=== PATIENT | male | born 1990 | race Caucasian/White ===

== ENCOUNTER 2018-05-31 13:32 | Emergency (ER) | payer OTHER, MEDICAID, SELFPAY ==
[2018-05-31 13:38] VITALS: BP 134/75; PULSE 112; RESP 18; TEMP 36.2; O2SAT 99; BMI 23.7
--- NOTE | 2018-05-31 15:09 | ED.SKABFB ---
HPI - Skin/Abscess/Foreign Bdy <SHIRA Arambula - Last Filed: 05/31/18 22:23> General Chief complaint: Skin/Abscess/Foreign Body Stated complaint: cut lip, a mess Time Seen by Provider: 05/31/18 15:11 Source: patient Mode of arrival: ambulatory Limitations: no limitations History of Present Illness HPI narrative: 28-year-old male with history of IV drug abuse heroin and is an former smoker here for complaint of swelling and pain with purulent discharge to his lower lip for the last 4 days. He states that the pain started with a small pustule/pimple to the lower lip area that he squeezed and her removed the pus. He reports increasing pain and swelling to that area since that timeframe. He denies any fevers or chills. He denies any trauma to the area. He has had a history of having abscesses in the past. Pain and swelling is limited to the lower lip. No other concerns or complaints. MD complaint: abscess/boil Related Data Home Medications Medication Instructions Recorded Confirmed naloxone [Narcan] 1 dose INTRANASAL DIRECTED 05/31/18 05/31/18 Previous Rx's Medication Instructions Recorded clindamycin HCl 300 mg PO QID #28 cap 05/31/18 Allergies Allergy/AdvReac Type Severity Reaction Status Date / Time Sulfa (Sulfonamide Allergy Intermediate Verified 05/31/18 13:43 Antibiotics) [SULFA (SULFONAMIDE ANTIBIOTICS)] Review of Systems <SHIRA Arambula - Last Filed: 05/31/18 22:23> Constitutional Denies chills, Denies fever(s), Denies lethargy and Denies weakness Eyes Denies change in vision, Denies eye discharge, Denies irritation and Denies loss of vision ENT Comments: Swelling and purulent drainage from lower lip Cardiovascular Denies chest pain, Denies irregular heart rhythm, Denies lightheadedness, Denies palpitations, Denies dyspnea, Denies dyspnea on exertion and Denies orthopnea Respiratory Denies cough, Denies dyspnea, Denies dyspnea on exertion and Denies wheezing Gastrointestinal Gastrointestinal: Denies abdominal pain, Denies change in bowel habits, Denies diarrhea, Denies nausea and Denies vomiting Genitourinary Denies hematuria, Denies flank pain, Denies urinary incontinence and Denies urinary urgency Musculoskeletal Denies back pain, Denies muscle weakness, Denies numbness and Denies tingling Integumentary/Breasts Denies pruritus, Denies erythema, Denies rash and Denies wounds Neurologic Denies confusion, Denies loss of vision, Denies numbness, Denies tingling and Denies weakness Psychiatric Denies anxiety, Denies confusion, Denies depression, Denies homicidal ideation and Denies suicidal ideation Endocrine Denies palpitations Hematologic/Lymphatic Denies easy bruising Allergic/Immunologic Denies wheezing Exam <SHIRA Arambula - Last Filed: 05/31/18 22:23> Initial Vital Signs Initial Vital Signs: Vital Signs Temperature 97.2 F L 05/31/18 13:38 Pulse Rate 112 H 05/31/18 13:38 Respiratory Rate 18 05/31/18 13:38 Blood Pressure 134/75 05/31/18 13:38 Pulse Oximetry 99 05/31/18 13:38 Const General: cooperative and well developed Nutritional Appearance: well nourished Orientation: alert, awake, oriented x3 and not confused HENMT Face and sinus: other (Swelling and tenderness to the lower lip with fluctuance and induration. 0.5 cm scab to right lower lip. ) Mouth: oral mucosae normal, oropharynx normal and moist mucous membranes Eyes Conjunctivae: conjunctivae normal Sclera: sclerae normal Pupils: PERRL EOM: EOM intact bilaterally Resp Effort & Inspection: normal respiratory effort, able to speak in complete sentences, no respiratory distress and no use of accessory muscles Auscultation: clear to auscultation bilaterally, no rales, no rhonchi and no wheezes Cardio Rate: regular rate Rhythm: regular rhythm Heart Sounds: no click, no gallops, no murmurs and no rubs Pulses: normal peripheral pulses Skin General: no rashes or lesions noted, No jaundice and No petechiae Neuro General: alert, oriented x3, gait normal and no focal motor deficits Speech: speech normal <Katrin Causey DO - Last Filed: 06/06/18 06:17> Initial Vital Signs Initial Vital Signs: Vital Signs Temperature 97.2 F L 05/31/18 13:38 Pulse Rate 112 H 05/31/18 13:38 Respiratory Rate 18 05/31/18 13:38 Blood Pressure 134/75 05/31/18 13:38 Pulse Oximetry 99 05/31/18 13:38 Procedures <SHIRA Arambula - Last Filed: 05/31/18 22:23> Abscess I/D Site: lip Local Anesthetic: lidocaine 1% Amount of anesthesia used (mL): 2 Technique: incised with #11 blade Amount of fluid expressed (mL): 5 Irrigation: Yes Packing used?: none Complications: pain and bleeding Course <SHIRA Arambula - Last Filed: 05/31/18 22:23> Orders Ordered: Discontinued Medications Clindamycin HCl (Cleocin) 300 mg PO NOW ONE Stop: 05/31/18 17:07 Last Admin: 05/31/18 17:10 Dose: 300 mg Sodium Chloride (Normal Saline 0.9%) 1,000 mls @ 1,000 mls/hr IV BOLUS ONE Stop: 05/31/18 16:18 Last Infusion: 05/31/18 17:34 Dose: 0 mls/hr Admin: 05/31/18 16:26 Dose: 1,000 mls/hr Ketorolac Tromethamine (Toradol) 30 mg IV NOW ONE Stop: 05/31/18 15:20 Last Admin: 05/31/18 16:26 Dose: 30 mg Lorazepam (Ativan) 1 mg PO NOW ONE Stop: 05/31/18 15:49 Last Admin: 05/31/18 16:07 Dose: 1 mg Vital Signs - 8 hr 05/31/18 16:54 05/31/18 18:08 Pulse Rate 101 H 110 H Respiratory Rate 18 18 Blood Pressure 116/63 Blood Pressure [Right Arm] 116/75 Pulse Oximetry 97 96 <Katrin Causey DO - Last Filed: 06/06/18 06:17> Orders Ordered: Discontinued Medications Clindamycin HCl (Cleocin) 300 mg PO NOW ONE Stop: 05/31/18 17:07 Last Admin: 05/31/18 17:10 Dose: 300 mg Sodium Chloride (Normal Saline 0.9%) 1,000 mls @ 1,000 mls/hr IV BOLUS ONE Stop: 05/31/18 16:18 Last Infusion: 05/31/18 17:34 Dose: 0 mls/hr Admin: 05/31/18 16:26 Dose: 1,000 mls/hr Ketorolac Tromethamine (Toradol) 30 mg IV NOW ONE Stop: 05/31/18 15:20 Last Admin: 05/31/18 16:26 Dose: 30 mg Lorazepam (Ativan) 1 mg PO NOW ONE Stop: 05/31/18 15:49 Last Admin: 05/31/18 16:07 Dose: 1 mg Vital Signs - 8 hr 05/31/18 16:54 05/31/18 18:08 Pulse Rate 101 H 110 H Respiratory Rate 18 18 Blood Pressure 116/63 Blood Pressure [Right Arm] 116/75 Pulse Oximetry 97 96 MDM - Skin/Abscess/Foreign Bdy <SHIRA Arambula - Last Filed: 05/31/18 22:23> Lab Data Result diagrams: 05/31/18 16:15 05/31/18 16:15 Lab Results 05/31/18 05/31/18 05/31/18 Range/Units 16:15 16:15 16:15 WBC 15.1 H (4.5-11.0) X10^3/uL RBC 5.25 (4.5-5.9) X10^6/uL Hgb 14.9 (13.5-17.5) g/dL Hct 45.2 (41-53) % MCV 86.1 (80-100) fL MCH 28.3 (26-34) PG MCHC 32.9 (30-36) % RDW 14.3 (11.6-14.8) % Plt Count 269 (150-400) X10^3/uL Neut % (Auto) 81.1 H (50-75) % Lymph % (Auto) 13.3 L (25-40) % [place] % (Auto) 5.3 (3-14) % Eos % (Auto) 0.1 L (2-4) % Baso % (Auto) 0.2 (0-2) % Neut # (Auto) 93869 H (0871-3492) /uL Sodium 146 H (137-145) mmol/L Potassium 4.0 (3.4-5.1) mmol/L Chloride 103 (98-107) mmol/L Carbon Dioxide 22 (22-32) mmol/L BUN 14 (9-20) mg/dL Creatinine 0.80 (0.66-1.25) mg/dL Estimated GFR > 60.0 (>60) mL/min BUN/Creatinine Ratio 17.5 (6-22) Glucose 98 (70-100) mg/dL Lactate (0.7-2.1) mmol/L Calcium 9.2 (8.4-10.2) mg/dL Total Bilirubin 1.0 (0.2-1.3) mg/dL AST 26 (17-59) IU/L ALT 33 (21-72) IU/L Alkaline Phosphatase 119 (38-126) U/L Total Protein 8.4 H (6.3-8.2) g/dL Albumin 4.4 (3.5-5.0) g/dL Globulin 4.0 (1.7-4.1) g/dL Albumin/Globulin Ratio 1.1 (1.0-2.8) Procalcitonin < 0.05 (<0.5) ng/mL 05/31/18 Range/Units 16:15 WBC (4.5-11.0) X10^3/uL RBC (4.5-5.9) X10^6/uL Hgb (13.5-17.5) g/dL Hct (41-53) % MCV (80-100) fL MCH (26-34) PG MCHC (30-36) % RDW (11.6-14.8) % Plt Count (150-400) X10^3/uL Neut % (Auto) (50-75) % Lymph % (Auto) (25-40) % [place] % (Auto) (3-14) % Eos % (Auto) (2-4) % Baso % (Auto) (0-2) % Neut # (Auto) (6737-9267) /uL Sodium (137-145) mmol/L Potassium (3.4-5.1) mmol/L Chloride (98-107) mmol/L Carbon Dioxide (22-32) mmol/L BUN (9-20) mg/dL Creatinine (0.66-1.25) mg/dL Estimated GFR (>60) mL/min BUN/Creatinine Ratio (6-22) Glucose (70-100) mg/dL Lactate 0.8 (0.7-2.1) mmol/L Calcium (8.4-10.2) mg/dL Total Bilirubin (0.2-1.3) mg/dL AST (17-59) IU/L ALT (21-72) IU/L Alkaline Phosphatase (38-126) U/L Total Protein (6.3-8.2) g/dL Albumin (3.5-5.0) g/dL Globulin (1.7-4.1) g/dL Albumin/Globulin Ratio (1.0-2.8) Procalcitonin (<0.5) ng/mL MDM Narrative Medical decision making narrative: Abscess to a lower lip was incised and drained with small amount of purulent drainage removed. Culture and sensitivity was sent and is pending. Initial heart rate was 112 however this normalized after fluids and Ativan as patient was anxious during today's visit. CBC shows elevated white count of 15 K however procalcitonin and lactate were negative. He is placed on clindamycin. [id number] Tylenol as needed for discomfort. Warm moist compresses to the lower lip few times a day over the next few days. Follow up with primary care provider in the next few days for re-evaluation. For any worsening symptoms return to the emergency room. <Katrin Causey, DO - Last Filed: 06/06/18 06:17> Lab Data Lab Results 05/31/18 05/31/18 05/31/18 Range/Units 16:15 16:15 16:15 WBC 15.1 H (4.5-11.0) X10^3/uL RBC 5.25 (4.5-5.9) X10^6/uL Hgb 14.9 (13.5-17.5) g/dL Hct 45.2 (41-53) % MCV 86.1 (80-100) fL MCH 28.3 (26-34) PG MCHC 32.9 (30-36) % RDW 14.3 (11.6-14.8) % Plt Count 269 (150-400) X10^3/uL Neut % (Auto) 81.1 H (50-75) % Lymph % (Auto) 13.3 L (25-40) % [place] % (Auto) 5.3 (3-14) % Eos % (Auto) 0.1 L (2-4) % Baso % (Auto) 0.2 (0-2) % Neut # (Auto) 35505 H (0494-3003) /uL Sodium 146 H (137-145) mmol/L Potassium 4.0 (3.4-5.1) mmol/L Chloride 103 (98-107) mmol/L Carbon Dioxide 22 (22-32) mmol/L BUN 14 (9-20) mg/dL Creatinine 0.80 (0.66-1.25) mg/dL Estimated GFR > 60.0 (>60) mL/min BUN/Creatinine Ratio 17.5 (6-22) Glucose 98 (70-100) mg/dL Lactate (0.7-2.1) mmol/L Calcium 9.2 (8.4-10.2) mg/dL Total Bilirubin 1.0 (0.2-1.3) mg/dL AST 26 (17-59) IU/L ALT 33 (21-72) IU/L Alkaline Phosphatase 119 (38-126) U/L Total Protein 8.4 H (6.3-8.2) g/dL Albumin 4.4 (3.5-5.0) g/dL Globulin 4.0 (1.7-4.1) g/dL Albumin/Globulin Ratio 1.1 (1.0-2.8) Procalcitonin < 0.05 (<0.5) ng/mL 05/31/18 Range/Units 16:15 WBC (4.5-11.0) X10^3/uL RBC (4.5-5.9) X10^6/uL Hgb (13.5-17.5) g/dL Hct (41-53) % MCV (80-100) fL MCH (26-34) PG MCHC (30-36) % RDW (11.6-14.8) % Plt Count (150-400) X10^3/uL Neut % (Auto) (50-75) % Lymph % (Auto) (25-40) % [place] % (Auto) (3-14) % Eos % (Auto) (2-4) % Baso % (Auto) (0-2) % Neut # (Auto) (3445-5424) /uL Sodium (137-145) mmol/L Potassium (3.4-5.1) mmol/L Chloride (98-107) mmol/L Carbon Dioxide (22-32) mmol/L BUN (9-20) mg/dL Creatinine (0.66-1.25) mg/dL Estimated GFR (>60) mL/min BUN/Creatinine Ratio (6-22) Glucose (70-100) mg/dL Lactate 0.8 (0.7-2.1) mmol/L Calcium (8.4-10.2) mg/dL Total Bilirubin (0.2-1.3) mg/dL AST (17-59) IU/L ALT (21-72) IU/L Alkaline Phosphatase (38-126) U/L Total Protein (6.3-8.2) g/dL Albumin (3.5-5.0) g/dL Globulin (1.7-4.1) g/dL Albumin/Globulin Ratio (1.0-2.8) Procalcitonin (<0.5) ng/mL Discharge Plan Departure Patient Disposition: Home Clinical Impression: Lip abscess Discharge Date/Time: 05/31/18 18:10 Interventions: ED Discharge Assessment Last Done: 05/31/18 18:08 Instructions: DI for Incision and Drainage of a Skin Abscess Activity Restrictions/Additional Instructions: Abscess to a lower lip was incised and drained with small amount of purulent drainage removed. Culture and sensitivity was sent and is pending. You are prescribed an antibiotic called clindamycin use as directed. [id number] Tylenol as needed for discomfort. Warm moist compresses to the lower lip few times a day over the next few days. Follow up with primary care provider in the next few days for re-evaluation. For any worsening symptoms return to the emergency room. Prescriptions: New clindamycin HCl 300 mg capsule 300 mg PO QID Qty: 28 RF: 0 No Action naloxone [Narcan] 4 mg/actuation spray,non-aerosol 1 dose Intranasal DIRECTED RF: 0 Referrals: Uziel Whittaker MD [Primary Care Provider] - <Katrin Cuasey DO - Last Filed: 06/06/18 06:17> Cosign ED Attending Cosignature Attestation: I was immediately available in the department for consultation. This documentation has been reviewed and I agree with assessment and plan. Supervised by Katrin Causey DO
[2018-05-31] MEDS: LORazepam 0.5 MG TABLET 1 MG PO (16:07)
[2018-05-31] MEDS: SODIUM CHLORIDE 0.9% 1,000 ML 1000 ML IV (16:26)
[2018-05-31] MEDS: KETOROLAC 60 MG/2 ML VIAL 30 MG IV (16:26)
[2018-05-31 16:40] LABS: Add Manual Diff / Slide Review NO; Basophils Percent Auto 0.2 % (0-2); Eosinophils Percent Auto 0.1 % (2-4); Hematocrit 45.2 % (41-53); Hemoglobin 14.9 g/dL (13.5-17.5); Lymphocytes Percent Auto 13.3 % (25-40); Mean Corpuscular HGB Conc 32.9 % (30-36); Mean Corpuscular Hemoglobin 28.3 PG (26-34); Mean Corpuscular Volume 86.1 fL (80-100); Monocytes Percent Auto 5.3 % (3-14); Neutrophils Absolute Auto 12300 /uL (3000-5900); Neutrophils Percent Auto 81.1 % (50-75); Platelet Count 269 X10^3/uL (150-400); Red Blood Cell Count 5.25 X10^6/uL (4.5-5.9); Red Cell Distribution Width 14.3 % (11.6-14.8); White Blood Cell Count 15.1 X10^3/uL (4.5-11.0)
[2018-05-31 16:47] LABS: Lactate (Lactic Acid) 0.8 mmol/L (0.7-2.1)
[2018-05-31 16:54] VITALS: BP 116/75; PULSE 101; RESP 18; O2SAT 97
[2018-05-31 16:59] LABS: Alanine Aminotransferase 33 IU/L (21-72); Albumin 4.4 g/dL (3.5-5.0); Albumin Globulin Ratio 1.1 (1.0-2.8); Alkaline Phosphatase 119 U/L (38-126); Aspartate Aminotransferase 26 IU/L (17-59); BUN Creatinine Ratio 17.5 (6-22); Blood Urea Nitrogen 14 mg/dL (9-20); Calcium 9.2 mg/dL (8.4-10.2); Carbon Dioxide 22 mmol/L (22-32); Chloride 103 mmol/L (98-107); Estimated Glomerular Filt Rate > 60.0 mL/min (>60); Glucose 98 mg/dL (70-100); Sodium 146 mmol/L (137-145); Total Protein 8.4 g/dL (6.3-8.2)
[2018-05-31 17:10] LABS: Procalcitonin < 0.05 ng/mL (<0.5)
[2018-05-31] MEDS: CLINDAMYCIN 150 MG CAPSULE 300 MG PO (17:10)
[2018-05-31 18:08] VITALS: BP 116/63; PULSE 110; RESP 18; O2SAT 96
== END 2018-05-31 18:10 | disposition home or self-care (01) ==
PROVIDERS: Emergency Provider Nurse Practitioner Family; PCP Family Medicine
DX: K13.0 Diseases of lips (principal)
CPT/HCPCS: 10060; 36591; 80053; 83605; 84145; 85025; 87070; 87075; 87077; 87147; 87186; 87205; 96361; 96374; 99283; J1885

== ENCOUNTER 2019-01-06 20:36 | Emergency (ER) | payer OTHER, MEDICAID, SELFPAY ==
[2019-01-06 20:30] VITALS: BP 100/61; PULSE 91; RESP 22; TEMP 36.7; O2SAT 100
[2019-01-06 21:00] VITALS: BP 102/48; PULSE 86; RESP 12; O2SAT 92
[2019-01-06 21:02] VITALS: BP 102/48; PULSE 89; RESP 18; O2SAT 95
[2019-01-06] MEDS: MECLIZINE HCL 12.5 MG TABLET 50 MG PO (21:42)
[2019-01-06 21:52] VITALS: BP 97/62; PULSE 93; RESP 21; O2SAT 100
--- NOTE | 2019-01-06 21:55 | ED_ITS ---
HPI - SOB/Dyspnea General Chief Complaint: Shortness of Breath/Dyspnea Stated Complaint: Fit for Halfway Time Seen by Provider: 01/06/19 21:28 Source: patient Mode of arrival: other (Police) Limitations: no limitations History of Present Illness The patient is under arrest, he is here for medical clearance being escorted by the [employer]. He ran from police 2 times today, caught the 2nd time. 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 He continues to use heroin on a regular basis. He is here now complaining of dyspnea on exertion. He also complains of dizziness that is known. He complains of lower extremity edema. He denies chest pain or palpitations. He has no history of syncope. Has no recent fever or chills. He has no allergies or ENT complaints. Related Data Home Medications Medication Instructions Recorded Confirmed naloxone [Narcan] 1 dose INTRANASAL DIRECTED 05/31/18 01/06/19 Previous Rx's Medication Instructions Recorded meclizine 25 mg PO QID PRN #20 tab 01/06/19 Allergies Allergy/AdvReac Type Severity Reaction Status Date / Time Sulfa (Sulfonamide Allergy Intermediate Verified 05/31/18 13:43 Antibiotics) [SULFA (SULFONAMIDE ANTIBIOTICS)] Review of Systems Review of Systems ROS Unobtainable: All systems reviewed & are unremarkable except as noted in HPI and below Constitutional Denies chills, Denies fever(s), Denies lethargy and Denies weakness Eyes Denies change in vision, Denies eye discharge and Denies loss of vision ENT Ears, Nose, Mouth, and Throat: Denies change in voice, Denies vertigo, Reports dizziness and Denies ear discharge Cardiovascular Denies chest pain, Denies irregular heart rhythm, Denies lightheadedness, Denies palpitations, Denies dyspnea on exertion and Denies orthopnea Respiratory Denies cough, Denies dyspnea on exertion and Denies wheezing Gastrointestinal Gastrointestinal: Denies abdominal pain and Denies vomiting Musculoskeletal Reports other (No weakness) Integumentary/Breasts Denies pruritus and Denies rash Neurologic Denies vertigo, Reports dizziness, Denies loss of vision and Denies weakness Endocrine Denies palpitations Allergic/Immunologic Denies wheezing PFSH Medical History Heroin dependence (Acute) Homeless (Acute) Surgical History Tricuspid valve replaced (Acute) Social History Smoking Status: Current every day smoker Social History (Updated 01/06/19 @ 21:50 by Gage Gonzales MD) Smoking Status: Current every day smoker substance use type: heroin Exam Initial Vital Signs Initial Vital Signs: Vital Signs Temperature 98.1 F 01/06/19 20:30 Pulse Rate 91 H 01/06/19 20:30 Respiratory Rate 22 01/06/19 20:30 Blood Pressure 100/61 01/06/19 20:30 Pulse Oximetry 100 01/06/19 20:30 Const General: cooperative and well developed Nutritional Appearance: well nourished Orientation: alert, awake and oriented x3 HENMT Head: normal to inspection Ears: hearing grossly abnormal bilaterally and other (Clear fluid behind the left TM. Positive Hallpike test to the left.) Mouth: No oral mucosae normal and No moist mucous membranes Throat: posterior oropharynx normal Eyes General: appearance normal, both eyes and all related structures Eyelids: eyelids normal Conjunctivae: conjunctivae normal Sclera: sclerae normal Pupils: PERRL EOM: EOM intact bilaterally Other: No nystagmus Neck Neck: normal visual inspection, trachea midline, No lymphadenopathy and No JVD Lymphatic: No lymphedema Resp Effort & Inspection: normal respiratory effort, able to speak in complete sentences, no respiratory distress and no use of accessory muscles Auscultation: clear to auscultation bilaterally, no rales, no rhonchi and no wheezes Cardio Rate: regular rate Rhythm: regular rhythm Heart Sounds: no gallops, murmur (Holosystolic) and no rubs Pulses: normal peripheral pulses GI Inspection: non-distended Palpation: soft, no hepatosplenomegaly, No guarding, No pulsatile mass and No tender Auscultation: normal bowel sounds Back/Spine/Pelvis Back: No CVA tenderness Cervical Spine: cervical ROM normal and No pain with cervical ROM Thoracic/Lumbar Spine: thoracic and lumbar spine normal to inspection Skin General: no rashes or lesions noted, No jaundice and No petechiae Neuro General: alert, oriented x3, gait normal and no focal motor deficits Speech: speech normal Course Course Narrative: The patient is advised and meclizine for labyrinthitis. He is concerned about withdrawal from heroin. He has no immediate symptoms of withdrawal. He is under arrest, he is cleared medically. He will have medical care at the senior care. Orders Ordered: ED Orders 01/06/19 20:40 EKG-12 Lead Stat Discontinued Medications Meclizine HCl (Antivert) 50 mg PO NOW ONE Stop: 01/06/19 21:36 Last Admin: 01/06/19 21:42 Dose: 50 mg Vital Signs - 8 hr 01/06/19 20:30 01/06/19 21:00 01/06/19 21:02 Temperature 98.1 F Pulse Rate 91 H 86 89 Respiratory Rate 22 12 18 Blood Pressure 100/61 Blood Pressure [Right Arm] 102/48 L 102/48 L Pulse Oximetry 100 92 95 01/06/19 21:52 Temperature Pulse Rate 93 H Respiratory Rate 21 Blood Pressure Blood Pressure [Right Arm] 97/62 Pulse Oximetry 100 MDM - SOB/Dyspnea ECG Data Attestation: I personally reviewed and interpreted this ECG as follows: (Normal sinus rhythm rate 84 beats per minute. Incomplete RBBB. No significant ST T wave changes. No ectopy.) Discharge Plan Departure Patient Disposition: Released, Other Clinical Impression: Acute labyrinthitis Qualifiers: Laterality: left Qualified Code(s): H83.02 - Labyrinthitis, left ear Instructions: DI for Labyrinthitis Activity Restrictions/Additional Instructions: Meclizine every 6 hours as needed for dizziness. Follow-up with your physician in 1 week if not improved. Return the ER as needed. Prescriptions: New meclizine 25 mg tablet,chewable 25 mg PO QID PRN (Reason: dizziness) Qty: 20 RF: 0 No Action Narcan 4 mg/actuation spray,non-aerosol 1 dose Intranasal DIRECTED RF: 0 Referrals: Uziel Whittaker MD [Primary Care Provider] - Stand Alone Forms: Work Release Note
== END 2019-01-06 22:07 | disposition home or self-care (01) ==
PROVIDERS: Emergency Provider Emergency Medicine; PCP Family Medicine
DX: H83.02 Labyrinthitis, left ear (principal); R06.00 Dyspnea, unspecified; R60.9 Edema, unspecified
CPT/HCPCS: 93005; 93010; 93041; 99283

== ENCOUNTER 2019-01-20 23:03 | Emergency (ER) | payer OTHER, MEDICAID, SELFPAY ==
[2019-01-20 23:14] VITALS: BP 100/67; PULSE 78; RESP 18; TEMP 36.4; O2SAT 100; BMI 25.1
[2019-01-21 00:20] VITALS: BP 112/75; PULSE 81; RESP 16; TEMP 36.7; O2SAT 96
[2019-01-21] MEDS: DOXYCYCLINE HYCLATE 100 MG TABLET PO (00:25)
--- NOTE | 2019-01-21 04:48 | ED_ITS ---
HPI - Skin/Abscess/Foreign Bdy General Chief complaint: Skin/Abscess/Foreign Body Stated complaint: ABCESS LEFT SIDE OF NECK Time Seen by Provider: 01/20/19 23:17 Source: patient Mode of arrival: ambulatory Limitations: no limitations History of Present Illness HPI narrative: 28 year old nonsmoking male with hx IVDA presents with painful skin lesion on the left side of his neck for the past few days. He injected h eroin at this location a few days ago. He has a history of MRSA abscesses. He denies any trouble swallowing or breathing. He has no fever, chills, N/V, or SOB Onset (ago): day(s) Tetanus up to date: yes Location: neck Severity: mild Quality: aching Pain Consistency: constant Relieving factors: none Exacerbating factors: palpation Context: IVDA Associated symptoms: denies other symptoms Treatments prior to arrival: none Related Data Home Medications Medication Instructions Recorded Confirmed naloxone [Narcan] 1 dose INTRANASAL DIRECTED 05/31/18 01/06/19 Previous Rx's Medication Instructions Recorded meclizine 25 mg PO QID PRN #20 tab 01/06/19 doxycycline hyclate 100 mg PO BID #20 tab 01/21/19 Allergies Allergy/AdvReac Type Severity Reaction Status Date / Time Sulfa (Sulfonamide Allergy Intermediate Verified 05/31/18 13:43 Antibiotics) [SULFA (SULFONAMIDE ANTIBIOTICS)] Review of Systems Constitutional Denies chills, Denies fever(s), Denies lethargy and Denies weakness Eyes Denies change in vision, Denies eye discharge, Denies irritation and Denies loss of vision ENT Ears, Nose, Mouth, and Throat: Denies change in voice, Denies neck pain and Denies sore throat Cardiovascular Denies chest pain, Denies irregular heart rhythm, Denies lightheadedness, Denies palpitations, Denies dyspnea, Denies dyspnea on exertion and Denies orthopnea Respiratory Denies cough, Denies dyspnea, Denies dyspnea on exertion and Denies wheezing Gastrointestinal Gastrointestinal: Denies abdominal pain, Denies change in bowel habits, Denies diarrhea, Denies nausea and Denies vomiting Genitourinary Denies hematuria, Denies flank pain, Denies urinary incontinence and Denies urinary urgency Musculoskeletal Denies neck pain Integumentary/Breasts Denies pruritus, Reports erythema, Denies rash, Reports skin pain, Reports skin swelling and Denies wounds Neurologic Denies confusion, Denies loss of vision and Denies weakness Psychiatric Denies anxiety, Denies confusion, Denies depression, Denies homicidal ideation and Denies suicidal ideation Endocrine Denies palpitations Hematologic/Lymphatic Denies easy bruising Allergic/Immunologic Denies wheezing PFSH Medical History Heroin dependence (Acute) Homeless (Acute) Surgical History Tricuspid valve replaced (Acute) Social History (Updated 01/06/19 @ 21:50 by Gage Gonzales MD) Smoking Status: Current every day smoker substance use type: heroin Social History (Updated 01/21/19 @ 04:44 by Dionte Lake DO) Smoking Status: Former smoker substance use type: heroin Exam Narrative Exam Narrative: GEN: AOx3 and in mild distress EYES: Pupils are equal, round, and reactive to light and accommodation. Extraoccular muscles are intact bilaterally. There is no subconjunctival hemorrhage or exudate. ENT: no lymphadenopathy. Airway patent. No tonsillar swelling CHEST: Lungs are clear to auscultation bilaterally and free of wheezes, rales, or rhonchi. Heart rate is regular rhythm, there are no murmurs, clicks, rubs, or gallops. There is no chest wall tenderness. ABD: Abdomen is soft and nontender. There is no guarding or rebound. Bowel sounds are normal in all 4 quadrants. There is no mass or organomegaly. EXT: Full painless ROM of all extremities with no loss of sensation or strength. SKIN: 2x3cm erythematous, fluctuant and tender abscess on L side of neck. No spontaneous drainage. Minimal surrounding erythema. Initial Vital Signs Initial Vital Signs: Vital Signs Temperature 97.5 F L 01/20/19 23:14 Pulse Rate 78 01/20/19 23:14 Respiratory Rate 18 01/20/19 23:14 Blood Pressure 100/67 01/20/19 23:14 Pulse Oximetry 100 01/20/19 23:14 Procedures Abscess I/D Site: neck Side (if applicable): left Local Anesthetic: lidocaine 1% and with bicarb Amount of anesthesia used (mL): 4 Technique: incised with #11 blade Amount of fluid expressed (mL): 5 Irrigation: No Packing used?: none Complications: pain Course Orders Ordered: ED Orders 01/21/19 00:44 Wound Culture and Gram Stain Stat Discontinued Medications Doxycycline Hyclate (Vibramycin) 100 mg PO NOW ONE Stop: 01/21/19 00:19 Last Admin: 01/21/19 00:25 Dose: 100 mg Vital Signs - 8 hr 01/20/19 23:14 01/21/19 00:20 Temperature 97.5 F L 98.0 F Pulse Rate 78 81 Respiratory Rate 18 16 Blood Pressure 100/67 Blood Pressure [Left Arm] 112/75 Pulse Oximetry 100 96 Discharge Plan Departure Patient Disposition: Home Clinical Impression: Abscess Discharge Date/Time: 01/21/19 00:47 Interventions: ED Discharge Assessment Last Done: 01/21/19 00:47 Instructions: DI for Skin Abscess Activity Restrictions/Additional Instructions: *You have been diagnosed with [acute cutaneous abscess left side of the neck] *What to do: *Take medications as directed *Follow up with your primary care provider in 2-3 days, call for an appointment. Let them know you were seen in the Emergency Department and that we ask that you be seen in follow up *Return to ER if you should have any new, worsening or concerning symptoms Prescriptions: New doxycycline hyclate 100 mg tablet 100 mg PO BID Qty: 20 RF: 0 No Action Narcan 4 mg/actuation spray,non-aerosol 1 dose Intranasal DIRECTED RF: 0 meclizine 25 mg tablet,chewable 25 mg PO QID PRN (Reason: dizziness) Qty: 20 RF: 0 Referrals: Uziel Whittaker MD [Primary Care Provider] -
== END 2019-01-21 00:47 | disposition home or self-care (01) ==
PROVIDERS: Emergency Provider Emergency Medicine; PCP Family Medicine
DX: L02.11 Cutaneous abscess of neck (principal)
CPT/HCPCS: 10060; 87070; 87075; 87077; 87147; 87186; 87205; 99282; 99283

== ENCOUNTER 2019-12-08 12:20 | Emergency (ER) | payer OTHER, MEDICAID, SELFPAY ==
[2019-12-08 12:20] VITALS: BP 140/66; PULSE 100; RESP 24; TEMP 37.5; O2SAT 100
--- NOTE | 2019-12-08 12:31 | DI.RAD.S_ITS ---
PROCEDURE: XR CHEST 1V INDICATIONS: suspected sepsis TECHNIQUE: One view of the chest was acquired. COMPARISON: [facility], , CHEST 2 VIEW, 05/19/2017, 12:00. FINDINGS: Surgical changes and devices: Median sternotomy wires and Lungs and pleura: Lungs are clear. No pleural effusions or pneumothorax. Mediastinum: Mediastinal contours appear normal. Heart size is normal. Bones and chest wall: No suspicious bony lesions. Overlying soft tissues appear unremarkable. IMPRESSION: No acute cardiopulmonary disease process. Dictated by: Kamila Serrano MD, PhD on 12/08/2019 at 13:04 Approved by: Kamila Serrano MD, PhD on 12/08/2019 at 13:04
--- NOTE | 2019-12-08 12:57 | DI.CT.S_ITS ---
PROCEDURE: CT LE RT W CON INDICATIONS: right hip/buttock infection concern for deep abscess TECHNIQUE: After the administration of intravenous contrast, 3 mm axial sections acquired of the pelvis and proximal lower extremities, with coronal and sagittal reformats. COMPARISON: None. FINDINGS: Image quality: Excellent. Bones: No discrete bony erosions or periosteal reaction. No fractures. Soft tissues: Extensive subcutaneous edema and skin thickening are demonstrated centered in the right gluteal region with extension superiorly along the right flank and inferiorly into the right lower extremity which demonstrates asymmetric enlargement. The findings are suggestive of cellulitis. There is a multilobulated subcutaneous loculated thickwalled peripherally enhancing fluid collection beginning at the level of the greater trochanter and extending inferiorly. This measures approximately 5.7 x 4.0 x 7.7 cm in dimension and is consistent with an abscess. This involves the overlying skin which is thickened without a discrete ulcer. There is extension to the underlying gluteus tuan muscle which is asymmetrically enlarged with hypoattenuation the consistent with an associated myositis. No discrete intramuscular abscess otherwise identified. The gluteal tendons appear intact. The iliopsoas and hamstring tendons also appear intact. The visualized pelvis demonstrates no intraperitoneal free fluid. Visualized bowel loops are normal in caliber. IMPRESSION: 1. Multilobulated subcutaneous fluid collection consistent with an abscess demonstrated within the lateral soft tissues in the proximal right lower extremity as described. There is extension to the gluteus tuan muscle which demonstrates an associated myositis. 2. No CT evidence of osteomyelitis. 3. Extensive subcutaneous edema and skin thickening demonstrated along the right flank and gluteal regions with extension into the visualized right lower extremity likely representing cellulitis. Dictated by: Ad Gastelum M.D. on 12/08/2019 at 14:00 Approved by: Ad Gastelum M.D. on 12/08/2019 at 14:09
[2019-12-08 13:39] LABS: Add Manual Diff / Slide Review NO; Basophils Absolute Auto 100 /uL (0-100); Basophils Percent Auto 0.4 % (0-2); Eosinophils Absolute Auto 100 /uL (0-450); Eosinophils Percent Auto 0.9 % (2-4); Hematocrit 35.1 % (41-53); Hemoglobin 11.6 g/dL (13.5-17.5); Lymphocytes Absolute Auto 2500 /uL (1100-4500); Lymphocytes Percent Auto 16.7 % (25-40); Mean Corpuscular HGB Conc 32.9 % (30-36); Mean Corpuscular Hemoglobin 29.6 PG (26-34); Mean Corpuscular Volume 89.9 fL (80-100); Monocytes Absolute Auto 1000 /uL (0-900); Monocytes Percent Auto 6.5 % (3-14); Neutrophils Absolute Auto 11200 /uL (1500-7000); Neutrophils Percent Auto 75.5 % (50-75); Platelet Count 282 X10^3/uL (150-400); Red Blood Cell Count 3.91 X10^6/uL (4.5-5.9); Red Cell Distribution Width 13.7 % (11.6-14.8); White Blood Cell Count 14.8 X10^3/uL (4.5-11.0)
[2019-12-08 13:47] LABS: INR 1.6 (0.9-1.3); Prothrombin Time 17.9 SECONDS (10.1-12.7)
[2019-12-08 13:50] LABS: PTT Partial Thromboplastin Tim 37 SECONDS (26.4-36.2)
[2019-12-08] MEDS: SODIUM CHLORIDE 0.9% 1,000 ML 1000 ML IV (13:52)
[2019-12-08] MEDS: CEFTRIAXONE 1 GM/50 ML FROZ.PIGGY IV (13:52)
[2019-12-08 13:57] LABS: Alanine Aminotransferase 22 IU/L (<50); Alkaline Phosphatase 136 U/L (38-126); Aspartate Aminotransferase 49 IU/L (17-59); BUN Creatinine Ratio 16.9 (6-22); Bilirubin Total 0.6 mg/dL (0.2-1.3); Blood Urea Nitrogen 14 mg/dL (9-20); Calcium 8.8 mg/dL (8.4-10.2); Carbon Dioxide 32 mmol/L (22-32); Chloride 95 mmol/L (98-107); Estimated Glomerular Filt Rate > 60.0 mL/min (>60); Globulin 4.2 g/dL (1.7-4.1); Glucose 115 mg/dL (70-100); HEMOLYSIS < 15 (0-50); Lactate (Lactic Acid) 0.9 mmol/L (0.7-2.1); Lipase 19 U/L (23-300); Potassium 3.8 mmol/L (3.4-5.1); Sodium 134 mmol/L (137-145); Total Protein 8.2 g/dL (6.3-8.2)
[2019-12-08 14:14] LABS: Procalcitonin 0.11 ng/mL (<0.5)
[2019-12-08] MEDS: VANCOMYCIN 1,000 MG/200 ML PIGGYBACK 200 MG IV (14:21)
[2019-12-08] MEDS: LIDO 1%/SOD BICARB 8.4% (10ML) 10 ML SYRINGE 20 ML INJ (14:22)
[2019-12-08] MEDS: KETOROLAC 60 MG/2 ML VIAL 30 MG IV (15:28)
[2019-12-08] MEDS: ACETAMINOPHEN 325 MG TABLET 650 MG PO (15:29)
--- NOTE | 2019-12-08 15:48 | ED.SKABFB ---
HPI - Skin/Abscess/Foreign Bdy <SHIRA Diaz - Last Filed: 12/08/19 17:29> General Chief complaint: Skin/Abscess/Foreign Body Stated complaint: SWOLLEN IN LEG FOR A WEEK,PAINFUL Time Seen by Provider: 12/08/19 12:33 Source: patient Mode of arrival: Ambulatory Limitations: no limitations History of Present Illness HPI narrative: This is 29 year old male, former smoker, with right hip/buttock abscess. Patient reports he noticed little bumps on affected site 1.5 week ago which has been getting worse with swelling, redness and pain. Patient has been traveling to [place] with prolonged sitting several times and thinks this caused worsening symptoms. Patient is IV drug user and had injected heroin or methamphetamine about a month ago on affected site. Patient states head neck abscess that was treated with I and D yesterday and lip skin infection from ingrown hair. Patient states last IV drug use was this morning with heroin. Patient states 1 of his friends who is a nurse lanced it the site and has been draining purulent discharge which helped with the discomfort. Patient denies fever, chills, nausea or vomiting. Patient has history of a heart surgery from a endocarditis. Related Data Home Medications Medication Instructions Recorded Confirmed No Known Home Medications 12/08/19 12/08/19 Allergies Allergy/AdvReac Type Severity Reaction Status Date / Time Sulfa (Sulfonamide Allergy Intermediate Verified 12/08/19 12:29 Antibiotics) [SULFA (SULFONAMIDE ANTIBIOTICS)] Review of Systems <Markos PruittSHIRA Bhandari - Last Filed: 12/08/19 17:29> Review of Systems Narrative: General: Denies fever, chills, fatigue, malaise, sweats. HEENT: Denies sinus pain, ear pain, sore throat, difficulty swallowing, dizziness. Respiratory: Denies dyspnea, cough, wheezing, hemoptysis, sputum. Cardiovascular: Denies chest pain, palpitations, orthopnea, edema. Gastrointestinal: Denies nausea, vomiting, abdominal pain, diarrhea, constipation, melena. : Denies dysuria, frequency, incontinence, hematuria, urinary retention. Musculoskeletal: Denies weakness, joint pain or bony pain. Skin: See HPI Neurologic: Denies weakness, headache, numbness, change in speech, confusion, seizures, incoordination. Psychiatric: No concerning psychosocial issues. 12-point review of systems is negative except for those stated above. Patient History <SHIRA Diaz - Last Filed: 12/08/19 17:29> Medical History Heroin dependence (Acute) Homeless (Acute) Surgical History Tricuspid valve replaced (Acute) Social History Smoking Status: Former smoker substance use type: heroin Smoking Status: Former smoker alcohol intake frequency: 0-2 drinks per day Substance Use Type: marijuana, heroin and methamphetamine Exam <SHIRA Diaz - Last Filed: 12/08/19 17:29> Narrative Exam Narrative: General appearance: well developed, well nourished, in no acute distress. Head: normocephalic, atraumatic, no scalp lesions, non-tender. ENT: Hearing grossly intact. Nose without bleeding, purulent discharge. Turbinate without erythema or swelling. Facial sinuses nontender to palpate. Mucous membrane moist, no mucosal lesion. Throat without erythema, tonsillar hypertrophy or exudate. Uvula in midline, airway patent. Neck/Thyroid: neck supple, full range of motion, no visible masses or meningeal signs. No JVD, non-tender without lymphadenopathy. Skin: Right lateral hip with erythematous, warmth, swelling with 3 small soft fluctuance to palpate with indurated surrounding tissue. Mild erythema extending to mid thigh in posterior all region. Draining purulent discharge from 1 of the lesions. Tender to palpate. Heart: no clubbing, no cyanosis, no edema. S1 and S2 normal. RRR w/o murmurs, clicks, or bruits. Lungs: Breathing even and unlabored. No stridor. No accessory muscles used. Able to speak in full sentences. Chest: normal shape and expansion. Abdomen: non-obese, non-distended. Neurologic: alert and oriented. Cognitive exam, G[employer] C[employer]IER and PNS grossly intact on informal exam. Psych: good eye contact, normal affect. Initial Vital Signs Initial Vital Signs: Vital Signs Temperature 99.5 F 12/08/19 12:20 Pulse Rate 100 H 12/08/19 12:20 Respiratory Rate 24 12/08/19 12:20 Blood Pressure 140/66 12/08/19 12:20 Pulse Oximetry 100 12/08/19 12:20 <Uziel Alcaraz DO - Last Filed: 12/08/19 17:51> Initial Vital Signs Initial Vital Signs: Vital Signs Temperature 99.5 F 12/08/19 12:20 Pulse Rate 100 H 12/08/19 12:20 Respiratory Rate 24 12/08/19 12:20 Blood Pressure 140/66 12/08/19 12:20 Pulse Oximetry 100 12/08/19 12:20 Procedures <ANTHONY DiazP - Last Filed: 12/08/19 17:29> Abscess I/D I&D #1: Site: lower extremity Side (if applicable): right Local Anesthetic: lidocaine 1% and with bicarb Amount of anesthesia used (mL): 18 Technique: incised with #11 blade Irrigation: Yes Packing used?: plain Complications: pain Scores <Markos Chandler RECONCILIATION ANALYST - Last Filed: 12/08/19 17:29> GCS Chata coma scale eye opening: Spontaneous [place]worth coma scale verbal response: Orientated Chata coma scale motor response: Obey commands Acworth coma scale total score: 15 Course <SHIRA Diaz - Last Filed: 12/08/19 17:29> Course Course Narrative: Consulted Dr. Ricks at 1450 for admission but recommended to contact [facility] for infectious disease specialist consultation which [facility] does not have availability for ID specialist, admission and transfer. Contacted [facility] at 1520 to consult hospitalist for an admission. Dr. Meneses kindly returned call at 4:20 p.m. and accepted patient's care for an admission for Infectious Disease consultation and possible surgical consultation. Decision to Admit Date: 12/08/19 Decision to Admit time: 14:35 Orders Ordered: ED Orders 12/08/19 12:31 XR chest 1V Stat EKG-12 Lead Stat RT Consult Eval and Treat Now 12/08/19 12:57 CT LE RT w con Stat 12/08/19 13:25 Complete Blood Count AUTO DIFF Stat Comprehensive Metabolic Panel Stat Lactate (Lactic Acid) Stat Lipase Stat Partial Thromboplastin Time Stat Procalcitonin Stat Prothrombin Time INR Stat 12/08/19 14:10 Blood Culture Stat 12/08/19 14:27 Wound Culture and Gram Stain Stat Discontinued Medications Acetaminophen (Tylenol) 650 mg PO NOW ONE Stop: 12/08/19 15:20 Last Admin: 12/08/19 15:29 Dose: 650 mg Documented by: FRANKO Sodium Chloride (Normal Saline 0.9%) 1,000 mls @ 1,000 mls/hr IV BOLUS ONE Stop: 12/08/19 13:30 Last Infusion: 12/08/19 14:55 Dose: 0 mls/hr Documented by: Admin: 12/08/19 13:52 Dose: 1,000 mls/hr Documented by: FRANKO Vancomycin HCl (Vancomycin) 1,000 mg in 200 mls @ 200 mls/hr IV NOW ONE Stop: 12/08/19 13:57 Last Infusion: 12/08/19 15:25 Dose: 0 mls/hr Documented by: Admin: 12/08/19 14:21 Dose: 200 mls/hr Documented by: MICHAEL Ceftriaxone Sodium/Dextrose (Rocephin) 1 gm in 50 mls @ 100 mls/hr IV NOW ONE Stop: 12/08/19 13:27 Last Infusion: 12/08/19 14:25 Dose: 0 mls/hr Documented by: Admin: 12/08/19 13:52 Dose: 100 mls/hr Documented by: FRANKO Ketorolac Tromethamine (Toradol) 30 mg IV NOW ONE Stop: 12/08/19 15:20 Last Admin: 12/08/19 15:28 Dose: 30 mg Documented by: FRANKO Lidocaine/Sodium Bicarbonate (Buffered Lidocaine 10 Ml Syr) 20 ml INJ NOW ONE Stop: 12/08/19 14:02 Last Admin: 12/08/19 14:22 Dose: 20 ml Documented by: MICHAEL Vital Signs Vital signs: Vital Signs - 8 hr 12/08/19 12:20 12/08/19 16:00 Temperature 99.5 F Pulse Rate 100 H 90 Respiratory Rate 24 14 Blood Pressure 140/66 Blood Pressure [Left Arm] 102/57 L Pulse Oximetry 100 99 <Uziel Alcaraz DO - Last Filed: 12/08/19 17:51> Orders Ordered: ED Orders 12/08/19 12:31 XR chest 1V Stat EKG-12 Lead Stat RT Consult Eval and Treat Now 12/08/19 12:57 CT LE RT w con Stat 12/08/19 13:25 Complete Blood Count AUTO DIFF Stat Comprehensive Metabolic Panel Stat Lactate (Lactic Acid) Stat Lipase Stat Partial Thromboplastin Time Stat Procalcitonin Stat Prothrombin Time INR Stat 12/08/19 14:10 Blood Culture Stat 12/08/19 14:27 Wound Culture and Gram Stain Stat Discontinued Medications Acetaminophen (Tylenol) 650 mg PO NOW ONE Stop: 12/08/19 15:20 Last Admin: 12/08/19 15:29 Dose: 650 mg Documented by: FRANKO Sodium Chloride (Normal Saline 0.9%) 1,000 mls @ 1,000 mls/hr IV BOLUS ONE Stop: 12/08/19 13:30 Last Infusion: 12/08/19 14:55 Dose: 0 mls/hr Documented by: Admin: 12/08/19 13:52 Dose: 1,000 mls/hr Documented by: FRANKO Vancomycin HCl (Vancomycin) 1,000 mg in 200 mls @ 200 mls/hr IV NOW ONE Stop: 12/08/19 13:57 Last Infusion: 12/08/19 15:25 Dose: 0 mls/hr Documented by: Admin: 12/08/19 14:21 Dose: 200 mls/hr Documented by: MICHAEL Ceftriaxone Sodium/Dextrose (Rocephin) 1 gm in 50 mls @ 100 mls/hr IV NOW ONE Stop: 12/08/19 13:27 Last Infusion: 12/08/19 14:25 Dose: 0 mls/hr Documented by: Admin: 12/08/19 13:52 Dose: 100 mls/hr Documented by: FRANKO Ketorolac Tromethamine (Toradol) 30 mg IV NOW ONE Stop: 12/08/19 15:20 Last Admin: 12/08/19 15:28 Dose: 30 mg Documented by: FRANKO Lidocaine/Sodium Bicarbonate (Buffered Lidocaine 10 Ml Syr) 20 ml INJ NOW ONE Stop: 12/08/19 14:02 Last Admin: 12/08/19 14:22 Dose: 20 ml Documented by: MICHAEL Vital Signs Vital signs: Vital Signs - 8 hr 12/08/19 12:20 12/08/19 16:00 Temperature 99.5 F Pulse Rate 100 H 90 Respiratory Rate 24 14 Blood Pressure 140/66 Blood Pressure [Left Arm] 102/57 L Pulse Oximetry 100 99 MDM - Skin/Abscess/Foreign Bdy <ANTHONY DiazP - Last Filed: 12/08/19 17:29> Differential Diagnosis Differential diagnosis: Likely abscess of skin or subcutaneous tissue, cellulitis and other (Deep abscess, osteomyelitis, necrotizing fasciitis) Medical Records Attestation: I reviewed the patient's medical records. Lab Data Attestation: I reviewed the patient's lab results. Result diagrams: 12/08/19 13:25 12/08/19 13:25 Labs: Lab Results 12/08/19 12/08/19 12/08/19 Range/Units 13:25 13:25 13:25 WBC 14.8 H (4.5-11.0) X10^3/uL RBC 3.91 L (4.5-5.9) X10^6/uL Hgb 11.6 L (13.5-17.5) g/dL Hct 35.1 L (41-53) % MCV 89.9 (80-100) fL MCH 29.6 (26-34) PG MCHC 32.9 (30-36) % RDW 13.7 (11.6-14.8) % Plt Count 282 (150-400) X10^3/uL Neut % (Auto) 75.5 H (50-75) % Lymph % (Auto) 16.7 L (25-40) % Antelope % (Auto) 6.5 (3-14) % Eos % (Auto) 0.9 L (2-4) % Baso % (Auto) 0.4 (0-2) % Neut # (Auto) 05009 H (3575-8597) /uL Lymph # (Auto) 2500 (4123-5648) /uL Antelope # (Auto) 1000 H (0-900) /uL Eos # (Auto) 100 (0-450) /uL Baso # (Auto) 100 (0-100) /uL PT 17.9 H (10.1-12.7) SECONDS INR 1.6 H (0.9-1.3) APTT 37 H (26.4-36.2) SECONDS Sodium (137-145) mmol/L Potassium (3.4-5.1) mmol/L Chloride (98-107) mmol/L Carbon Dioxide (22-32) mmol/L BUN (9-20) mg/dL Creatinine (0.66-1.25) mg/dL Estimated GFR (>60) mL/min BUN/Creatinine Ratio (6-22) Glucose (70-100) mg/dL Lactate (0.7-2.1) mmol/L Calcium (8.4-10.2) mg/dL Total Bilirubin (0.2-1.3) mg/dL AST (17-59) IU/L ALT (<50) IU/L Alkaline Phosphatase (38-126) U/L Total Protein (6.3-8.2) g/dL Albumin (3.5-5.0) g/dL Globulin (1.7-4.1) g/dL Albumin/Globulin Ratio (1.0-2.8) Lipase (23-300) U/L Procalcitonin 0.11 (<0.5) ng/mL 12/08/19 12/08/19 Range/Units 13:25 13:25 WBC (4.5-11.0) X10^3/uL RBC (4.5-5.9) X10^6/uL Hgb (13.5-17.5) g/dL Hct (41-53) % MCV (80-100) fL MCH (26-34) PG MCHC (30-36) % RDW (11.6-14.8) % Plt Count (150-400) X10^3/uL Neut % (Auto) (50-75) % Lymph % (Auto) (25-40) % Antelope % (Auto) (3-14) % Eos % (Auto) (2-4) % Baso % (Auto) (0-2) % Neut # (Auto) (5690-7555) /uL Lymph # (Auto) (7860-7743) /uL Antelope # (Auto) (0-900) /uL Eos # (Auto) (0-450) /uL Baso # (Auto) (0-100) /uL PT (10.1-12.7) SECONDS INR (0.9-1.3) APTT (26.4-36.2) SECONDS Sodium 134 L (137-145) mmol/L Potassium 3.8 (3.4-5.1) mmol/L Chloride 95 L (98-107) mmol/L Carbon Dioxide 32 (22-32) mmol/L BUN 14 (9-20) mg/dL Creatinine 0.83 (0.66-1.25) mg/dL Estimated GFR > 60.0 (>60) mL/min BUN/Creatinine Ratio 16.9 (6-22) Glucose 115 H (70-100) mg/dL Lactate 0.9 (0.7-2.1) mmol/L Calcium 8.8 (8.4-10.2) mg/dL Total Bilirubin 0.6 (0.2-1.3) mg/dL AST 49 (17-59) IU/L ALT 22 (<50) IU/L Alkaline Phosphatase 136 H (38-126) U/L Total Protein 8.2 (6.3-8.2) g/dL Albumin 4.0 (3.5-5.0) g/dL Globulin 4.2 H (1.7-4.1) g/dL Albumin/Globulin Ratio 1.0 (1.0-2.8) Lipase 19 L (23-300) U/L Procalcitonin (<0.5) ng/mL Urine Dip Bedside Urine Glucose Negative Bedside Urine Bilirubin + 1 Bedside Urine Ketone +/- 5 Urine Specific [place] 1.015 Bedside Urine Occult Blood +/- Bedside Urine pH 6.0 Bedside Urine Protein +/- 15 Bedside Urine Urobilinogen 1+ 2mg Bedside Urine Nitrite - Negative Bedside Urine Leukocytes +/- [address]-Lower extremity Right: Radiologist's Impression: [place] [address] CT Scan Report Signed Patient: Aj Ford BMR#: [id number] : 1990Acct:[id number] Age/Sex: MDate of Service: 12/08/19 Loc: ED Accession Number: [id number] Procedure: CT LE RT w con Ordering Provider: Uziel Alcaraz D.O. PROCEDURE: CT LE RT W CON INDICATIONS: right hip/buttock infection concern for deep abscess TECHNIQUE: After the administration of intravenous contrast, 3 mm axial sections acquired of the pelvis and proximal lower extremities, with coronal and sagittal reformats. COMPARISON: None. FINDINGS: Image quality: Excellent. Bones: No discrete bony erosions or periosteal reaction. No fractures. Soft tissues: Extensive subcutaneous edema and skin thickening are demonstrated centered in the right gluteal region with extension superiorly along the right flank and inferiorly into the right lower extremity which demonstrates asymmetric enlargement. The findings are suggestive of cellulitis. There is a multilobulated subcutaneous loculated thickwalled peripherally enhancing fluid collection beginning at the level of the greater trochanter and extending inferiorly. This measures approximately 5.7 x 4.0 x 7.7 cm in dimension and is consistent with an abscess. This involves the overlying skin which is thickened without a discrete ulcer. There is extension to the underlying gluteus tuan muscle which is asymmetrically enlarged with hypoattenuation the consistent with an associated myositis. No discrete intramuscular abscess otherwise identified. The gluteal tendons appear intact. The iliopsoas and hamstring tendons also appear intact. The visualized pelvis demonstrates no intraperitoneal free fluid. Visualized bowel loops are normal in caliber. IMPRESSION: 1. Multilobulated subcutaneous fluid collection consistent with an abscess demonstrated within the lateral soft tissues in the proximal right lower extremity as described. There is extension to the gluteus tuan muscle which demonstrates an associated myositis. 2. No CT evidence of osteomyelitis. 3. Extensive subcutaneous edema and skin thickening demonstrated along the right flank and gluteal regions with extension into the visualized right lower extremity likely representing cellulitis. Dictated by: Ad Gastelum M.D. on 12/08/2019 at 14:00 Approved by: Ad Gastelum M.D. on 12/08/2019 at 14:09 Chest x-ray: Radiologist's Impression: [address] [address] XRay Report Signed Patient: Aj Ford BMR#: [id number] : 1990Acct:[id number] Age/Sex: 29 MDate of Service: 12/08/19 Loc: ED Accession Number: [id number] Procedure: XR chest 1V Ordering Provider: Uziel Alcaraz D.O. PROCEDURE: XR CHEST 1V INDICATIONS: suspected sepsis TECHNIQUE: One view of the chest was acquired. COMPARISON: [facility], CHEST 2 VIEW, 05/19/2017, 12:00. FINDINGS: Surgical changes and devices: Median sternotomy wires and Lungs and pleura: Lungs are clear. No pleural effusions or pneumothorax. Mediastinum: Mediastinal contours appear normal. Heart size is normal. Bones and chest wall: No suspicious bony lesions. Overlying soft tissues appear unremarkable. IMPRESSION: No acute cardiopulmonary disease process. Dictated by: Kamila Serrano MD, PhD on 12/08/2019 at 13:04 Approved by: Kamila Serrano MD, PhD on 12/08/2019 at 13:04 [facility] Narrative Medical decision making narrative: This is a 29-year-old male who is IVD with heroin/methamphetamine presents to ED with right buttock/pelvis abscess and cellulitis which started with small lesions about 10 days ago. Patient reports he had injected heroin or methamphetamine into his tissue about a month ago. The abscess has been draining since yesterday after his friend lanced it. Patient has history of abscess in his neck with treatment of I&D. CBC shows leukocytosis of 14.8 with neutrophil #[id number]. Normal procalcitonin and lactate today. Mildly decreased sodium and chloride of 134 and 95. Serum glucose 115. PT and PTT was 17.9 and 37 with INR of 1.6. CT of lower extremity with contrast indicates multi lobulated subcutaneous fluid collection consistent with abscess within the lateral soft tissue in the proximal right lower extremity which extended to gluteus tuan muscle. No CT evidence of osteomyelitis. Extensive subcutaneous edema and skin thickening along the right flank and gluteal region indicating cellulitis. Three small fluctuant area was incised and drained with copious amount of purulent discharge and packed. Wound culture has send out. Two blood cultures were obtained and pending results. Patient was medicated with 1 g of vancomycin and 1 g of Rocephin via IV and received 1 L of normal saline. Patient was afebrile in ED with within normal blood pressure and heart rate up to 100 when he arrived in ED. patient's pain is managed with IV toradol. Discussed pending transfer to [facility] for infectious disease specialist consultation and surgical consultation. Patient prefers to stay locally but understood and verbally consented. <Uziel Alcaraz, DO - Last Filed: 12/08/19 17:51> Lab Data Labs: Lab Results 12/08/19 12/08/19 12/08/19 Range/Units 13:25 13:25 13:25 WBC 14.8 H (4.5-11.0) X10^3/uL RBC 3.91 L (4.5-5.9) X10^6/uL Hgb 11.6 L (13.5-17.5) g/dL Hct 35.1 L (41-53) % MCV 89.9 (80-100) fL MCH 29.6 (26-34) PG MCHC 32.9 (30-36) % RDW 13.7 (11.6-14.8) % Plt Count 282 (150-400) X10^3/uL Neut % (Auto) 75.5 H (50-75) % Lymph % (Auto) 16.7 L (25-40) % Antelope % (Auto) 6.5 (3-14) % Eos % (Auto) 0.9 L (2-4) % Baso % (Auto) 0.4 (0-2) % Neut # (Auto) 40315 H (5756-2752) /uL Lymph # (Auto) 2500 (3491-2108) /uL Antelope # (Auto) 1000 H (0-900) /uL Eos # (Auto) 100 (0-450) /uL Baso # (Auto) 100 (0-100) /uL PT 17.9 H (10.1-12.7) SECONDS INR 1.6 H (0.9-1.3) APTT 37 H (26.4-36.2) SECONDS Sodium (137-145) mmol/L Potassium (3.4-5.1) mmol/L Chloride (98-107) mmol/L Carbon Dioxide (22-32) mmol/L BUN (9-20) mg/dL Creatinine (0.66-1.25) mg/dL Estimated GFR (>60) mL/min BUN/Creatinine Ratio (6-22) Glucose (70-100) mg/dL Lactate (0.7-2.1) mmol/L Calcium (8.4-10.2) mg/dL Total Bilirubin (0.2-1.3) mg/dL AST (17-59) IU/L ALT (<50) IU/L Alkaline Phosphatase (38-126) U/L Total Protein (6.3-8.2) g/dL Albumin (3.5-5.0) g/dL Globulin (1.7-4.1) g/dL Albumin/Globulin Ratio (1.0-2.8) Lipase (23-300) U/L Procalcitonin 0.11 (<0.5) ng/mL 12/08/19 12/08/19 Range/Units 13:25 13:25 WBC (4.5-11.0) X10^3/uL RBC (4.5-5.9) X10^6/uL Hgb (13.5-17.5) g/dL Hct (41-53) % MCV (80-100) fL MCH (26-34) PG MCHC (30-36) % RDW (11.6-14.8) % Plt Count (150-400) X10^3/uL Neut % (Auto) (50-75) % Lymph % (Auto) (25-40) % Antelope % (Auto) (3-14) % Eos % (Auto) (2-4) % Baso % (Auto) (0-2) % Neut # (Auto) (5712-8791) /uL Lymph # (Auto) (3126-1531) /uL Antelope # (Auto) (0-900) /uL Eos # (Auto) (0-450) /uL Baso # (Auto) (0-100) /uL PT (10.1-12.7) SECONDS INR (0.9-1.3) APTT (26.4-36.2) SECONDS Sodium 134 L (137-145) mmol/L Potassium 3.8 (3.4-5.1) mmol/L Chloride 95 L (98-107) mmol/L Carbon Dioxide 32 (22-32) mmol/L BUN 14 (9-20) mg/dL Creatinine 0.83 (0.66-1.25) mg/dL Estimated GFR > 60.0 (>60) mL/min BUN/Creatinine Ratio 16.9 (6-22) Glucose 115 H (70-100) mg/dL Lactate 0.9 (0.7-2.1) mmol/L Calcium 8.8 (8.4-10.2) mg/dL Total Bilirubin 0.6 (0.2-1.3) mg/dL AST 49 (17-59) IU/L ALT 22 (<50) IU/L Alkaline Phosphatase 136 H (38-126) U/L Total Protein 8.2 (6.3-8.2) g/dL Albumin 4.0 (3.5-5.0) g/dL Globulin 4.2 H (1.7-4.1) g/dL Albumin/Globulin Ratio 1.0 (1.0-2.8) Lipase 19 L (23-300) U/L Procalcitonin (<0.5) ng/mL Urine Dip Bedside Urine Glucose Negative Bedside Urine Bilirubin + 1 Bedside Urine Ketone +/- 5 Urine Specific [place] 1.015 Bedside Urine Occult Blood +/- Bedside Urine pH 6.0 Bedside Urine Protein +/- 15 Bedside Urine Urobilinogen 1+ 2mg Bedside Urine Nitrite - Negative Bedside Urine Leukocytes +/- 15 Esterase Discharge Plan Departure Patient Disposition: [facility] Clinical Impression: Abscess of buttock, right Cellulitis of lower extremity Qualifiers: Laterality: right Qualified Code(s): L03.115 - Cellulitis of right lower limb Discharge Date/Time: 12/08/19 17:31 Prescriptions: No Action No Known Home Medications RF: 0 Referrals: Uziel Whittaker MD [Primary Care Provider] - <Uziel Alcaraz DO - Last Filed: 12/08/19 17:51> Cosign ED Attending Cosignature Attestation: Dr Alcaraz Co-Sign Statement: I was available for consultation during this patient's emergency department visit. This chart is signed by myself for administrative purposes only. I did not have direct contact with this patient during this visit. They were seen independently by the APC.
[2019-12-08 16:00] VITALS: BP 102/57; PULSE 90; RESP 14; O2SAT 99
== END 2019-12-08 17:31 | disposition short-term general hospital (02) ==
PROVIDERS: Emergency Medicine; Emergency Provider Nurse Practitioner Family; PCP Family Medicine
DX: L02.31 Cutaneous abscess of buttock (principal); L03.115 Cellulitis of right lower limb; F11.10 Opioid abuse, uncomplicated; R00.0 Tachycardia, unspecified
CPT/HCPCS: 10060; 36415; 71045; 73701; 80053; 81003; 83605; 83690; 84145; 85025; 85610; 85730; 87040; 87070; 87075; 87077; 87147; 87186; 87205; 93005; 96365; 96367; 96375; 99284; J1885; Q9967

== ENCOUNTER 2021-07-03 01:06 | Inpatient (IN) | payer OTHER, MEDICAID, SELFPAY ==
[2021-07-03] VITALS (12 sets, daily range): BP systolic 105–147; BP diastolic 58–71; PULSE 71–112; RESP 14–19; TEMP 36.2–37.6; O2SAT 95–100; BMI 25.4
--- NOTE | 2021-07-03 01:46 | ED_ITS ---
HPI - Skin/Abscess/Foreign Bdy General Chief complaint: Skin/Abscess/Foreign Body Stated complaint: abscess on arm x3 days Time Seen by Provider: 07/03/21 01:45 PST Source: patient Mode of arrival: Ambulatory History of Present Illness HPI narrative: 31-year-old male former smoker with history of IV drug abuse presents with a chief complaint of a painful, red and swollen left forearm at after injecting methamphetamines. He states he tried to get some of the pus out at home and got some but is had increasing pain over the past few days. He has had as fever and a high heart rate. He denies any runny nose, sore throat or cough. He has had skin infections before. He is hoping he can get help with his use of IV drugs in addition to treatment of his abscess Related Data Home Medications Medication Instructions Recorded Confirmed No Known Home Medications 12/08/19 12/08/19 Allergies Allergy/AdvReac Type Severity Reaction Status Date / Time Sulfa (Sulfonamide Allergy Intermediate Verified 12/08/19 12:29 Antibiotics) [SULFA (SULFONAMIDE ANTIBIOTICS)] Review of Systems Review of Systems Narrative: GENERAL: See HPI HEENT: Denies sinus pain, ear pain, sore throat, difficulty swallowing, dizziness. RESPIRATORY: Denies dyspnea, cough, wheezing, hemoptysis, sputum. CARDIOVASCULAR: See HPI GASTROINTESTINAL: Denies nausea, vomiting, abdominal pain, diarrhea, constipation, melena. : Denies dysuria, frequency, incontinence, hematuria, urinary retention. MUSCULOSKELETAL: denies weakness, joint pain, or bony pain SKIN: See HPI NEUROLOGIC: Denies weakness, headache, numbness, change in speech, confusion, seizures, incoordination. PSYCHIATRIC: No concerning psychosocial issues. 12 point review of systems is negative except for those stated above Patient History Medical History Heroin dependence Homeless Surgical History Tricuspid valve replaced Social History household members: friend(s) Smoking Status: Former smoker substance use type: heroin Smoking Status: Former smoker alcohol intake frequency: 0-2 drinks per day Substance Use Type: heroin and methamphetamine Exam Narrative Exam Narrative: GENERAL: [31 year old patient appears stated age. Well-developed patient, in mild distress. HEAD: Atraumatic. Normocephalic. EYES: Pupils equal round and reactive. Extraocular motions intact. No scleral icterus. No injection or drainage. ENT: Nose without bleeding, purulent drainage. Throat without erythema, tonsillar hypertrophy or exudate. Airway patent. NECK: Trachea midline. Non tender CARDIOVASCULAR: Tachycardic but regular rhythm without murmurs, gallops, or rubs. RESPIRATORY: Clear to auscultation. Breath sounds equal bilaterally. No wheezes, rales, or rhonchi. GASTROINTESTINAL: Abdomen soft, non-tender, nondistended. EXTREMITIES: Left forearm swollen, erythematous, warm and painful largely from the elbow to the wrist. The volar surface is more swollen and there is a 2 x 3 cm area of fluctuance in the mid forearm with significant surrounding erythema. The patient is able to flex and extend the wrist and move his fingers. BACK: Nontender without deformity or crepitance. No flank tenderness. NEURO: AOx3. SKIN: No rash or erythema of visible areas Initial Vital Signs Initial Vital Signs: Vital Signs Temperature 99.7 F H 07/03/21 01:16 [facility] Pulse Rate 112 H 07/03/21 01:16 PST Respiratory Rate 18 07/03/21 01:16 PST Blood Pressure 147/66 H 07/03/21 01:16 PST Pulse Oximetry 95 07/03/21 01:16 PST Procedures Abscess I/D I&D #1: Site: upper extremity Side (if applicable): left Local Anesthetic: lidocaine 1% and with bicarb Amount of anesthesia used (mL): 4 Technique: incised with #11 blade Amount of fluid expressed (mL): 8 Packing used?: none Complications: pain Course Orders Ordered: Acetaminophen (Acetaminophen 325 Mg Tablet) 650 mg PO Q6HR PRN PRN Reason: Fever/Mild Pain (1-3) Enoxaparin Sodium (Enoxaparin 40 Mg/0.4 Ml Syringe) 40 mg SUBCUT DAILY [facility] Last Admin: 07/04/21 11:44 Dose: 40 mg Documented by: Admin: 07/03/21 10:19 Dose: 40 mg Documented by: CAROLINE Sodium Chloride (Normal Saline 0.9%) 1,000 mls @ 150 mls/hr IV CONT [facility] Last Admin: 07/04/21 18:38 Dose: 150 mls/hr Documented by: Infusion: 07/04/21 18:38 Dose: 150 mls/hr Documented by: Admin: 07/04/21 17:17 Dose: 150 mls/hr Documented by: Infusion: 07/04/21 09:13 Dose: 150 mls/hr Documented by: Admin: 07/04/21 02:32 Dose: 150 mls/hr Documented by: Infusion: 07/04/21 01:04 Dose: 150 mls/hr Documented by: Admin: 07/03/21 18:23 Dose: 150 mls/hr Documented by: Infusion: 07/03/21 15:11 Dose: 0 mls/hr Documented by: FRANCISCO JAVIER Admin: 07/03/21 06:48 Dose: 150 mls/hr Documented by: CLEVELAND Penicillin G Potassium 2,000, (000 unit/ Dextrose) 100 mls @ 100 mls/hr IV Q4H [facility] Last Admin: 07/04/21 18:37 Dose: 100 mls/hr Documented by: AIDAN Ondansetron HCl (Ondansetron 4 Mg/2 Ml Inj) 4 mg IV Q8HR PRN PRN Reason: Nausea And Vomiting Discontinued Medications Vancomycin HCl/Dextrose (Vancomycin) 1,500 mg in 300 mls @ 200 mls/hr IV NOW ONE Stop: 07/03/21 03:28 Last Infusion: 07/03/21 04:59 Dose: 0 mls/hr Documented by: Admin: 07/03/21 02:31 Dose: 200 mls/hr Documented by: CLEVELAND Vancomycin HCl (Vancomycin) 1,250 mg in 250 mls @ 200 mls/hr IV Q8H [facility] Last Infusion: 07/04/21 13:00 Dose: 0 mls/hr Documented by: Admin: 07/04/21 11:37 Dose: 200 mls/hr Documented by: Infusion: 07/04/21 11:25 Dose: 0 mls/hr Documented by: Admin: 07/04/21 02:32 Dose: 200 mls/hr Documented by: Infusion: 07/03/21 19:37 Dose: 200 mls/hr Documented by: Admin: 07/03/21 18:22 Dose: 200 mls/hr Documented by: Infusion: 07/03/21 12:09 Dose: 0 mls/hr Documented by: Admin: 07/03/21 10:19 Dose: 200 mls/hr Documented by: CAROLINE Penicillin G Potassium 2,000, (000 unit/ Dextrose) 250 mls @ 250 mls/hr IV Q4H [facility] Last Admin: 07/04/21 18:23 Dose: Not Given Documented by: AIDAN Penicillin G Potassium 2,000, (000 unit/ Dextrose) 100 mls @ 100 mls/hr IV Q4H [facility] Last Admin: 07/04/21 18:23 Dose: Not Given Documented by: AIDAN Penicillin G Potassium 2,000, (000 unit/ Dextrose) 100 mls @ 100 mls/hr IV Q4H [facility] Last Admin: 07/04/21 18:25 Dose: Not Given Documented by: AIDAN Lidocaine/Sodium Bicarbonate (Lido 1%/Sod Bicarb 8.4% (10ml) 10 Ml Syringe) 10 ml INJ NOW ONE Stop: 07/03/21 01:59 PST Last Admin: 07/03/21 02:32 Dose: 10 ml Documented by: CLEVELADN Vancomycin HCl (Vancomycin Per Pharmacy) 1 request [facility] [place] NOW ONE Stop: 07/03/21 05:53 Last Admin: 07/03/21 11:27 Dose: Not Given Documented by: CAROLINE Vancomycin HCl (Vancomycin Trough) 1 request [facility] [place] [address] [facility] Stop: 07/04/21 09:31 Last Admin: 07/04/21 11:40 Dose: 1 request Documented by: AIDAN Vital Signs Vital signs: Vital Signs - 8 hr 07/03/21 01:16 PST Temperature 99.7 F H Pulse Rate 112 H Respiratory Rate 18 Blood Pressure 147/66 H Pulse Oximetry 95 MDM - Skin/Abscess/Foreign Bdy Lab Data Result diagrams: 07/04/21 06:55 07/04/21 06:55 Labs: Lab Results 07/03/21 07/03/21 07/03/21 Range/Units 01:50 PST 02:15 02:25 WBC 10.5 (4.5-11.0) X10^3/uL RBC 3.93 L (4.5-5.9) X10^6/uL Hgb 11.5 L (13.5-17.5) g/dL Hct 34.4 L (41-53) % MCV 87.6 (80-100) fL MCH 29.4 (26-34) PG MCHC 33.5 (30-36) % RDW 13.5 (11.6-14.8) % Plt Count 255 (150-400) X10^3/uL Neut % (Auto) 71.2 (50-75) % Lymph % (Auto) 19.1 L (25-40) % [place] % (Auto) 7.0 (3-14) % Eos % (Auto) 2.3 (2-4) % Baso % (Auto) 0.4 (0-2) % Neut # (Auto) 7500 H (1764-3073) /uL Lymph # (Auto) 2000 (5597-8297) /uL [place] # (Auto) 700 (0-900) /uL Eos # (Auto) 200 (0-450) /uL Baso # (Auto) 0 (0-100) /uL Sodium 136 L (137-145) mmol/L Potassium 4.2 (3.4-5.1) mmol/L Chloride 97 L (98-107) mmol/L Carbon Dioxide 31 (22-32) mmol/L BUN 17 (9-20) mg/dL Creatinine 0.78 (0.66-1.25) mg/dL Estimated GFR > 60.0 (>60) mL/min BUN/Creatinine Ratio 21.8 (6-22) Glucose 109 H (70-100) mg/dL Calcium 8.8 (8.4-10.2) mg/dL SARS-CoV-2 (PCR) Negative (Negative) Imaging Data Extremity x-ray #1: Radiologist's Impression: [address] [address] XRay Report Signed Patient: Aj Ford MR#: [id number] : 1990 Acct:[id number] Age/Sex: 31 / M Date of Service: 07/03/21 Loc: 90B-1 Accession Number: [id number] ?? Procedure: XR forearm LT 2V Ordering Provider: Dionte Lake D.O. PROCEDURE:? XR FOREARM LT 2V ? INDICATIONS:? large abscess, possible foreign body ? TECHNIQUE:? 2 views of the forearm were acquired.? ? COMPARISON:? [facility], CT, CT UE LT W CON, 07/03/2021, 7:41. ? FINDINGS:? ? Bones:? No fractures or dislocations.? No suspicious bony lesions.? ? Soft tissues:? Soft tissue swelling is seen proximally.? No soft tissue gas is seen.? No radiopaque foreign bodies are seen.? ? ? IMPRESSION:? Proximal soft tissue swelling seen, without soft tissue gas. ? ? Note: No significant discrepancy from the preliminary report. ? Dictated by: Horacio Martinez M.D. on 07/03/2021 at 7:06 ? ? Approved by: Horacio Martinez M.D. on 07/03/2021 at 7:07 ? Discharge Plan Departure Patient Disposition: Admitted as Observation Clinical Impression: Abscess of skin or subcutaneous tissue Qualifiers: Site of cutaneous abscess: extremity Site of cutaneous abscess of extremity: upper extremity Laterality: left Qualified Code(s): L02.414 - Cutaneous abscess of left upper limb Admit Date/Time: 07/03/21 05:13 Admit Provider: Van Deng
[2021-07-03 02:18] LABS: BUN Creatinine Ratio 21.8 (6-22); Blood Urea Nitrogen 17 mg/dL (9-20); Calcium 8.8 mg/dL (8.4-10.2); Carbon Dioxide 31 mmol/L (22-32); Chloride 97 mmol/L (98-107); Estimated Glomerular Filt Rate > 60.0 mL/min (>60); Glucose 109 mg/dL (70-100); Sodium 136 mmol/L (137-145)
[2021-07-03 02:26] LABS: HEMOLYSIS 70 (0-50)
[2021-07-03 02:27] LABS: Potassium 4.2 mmol/L (3.4-5.1)
[2021-07-03] MEDS: VANCOMYCIN 1,500 MG/300 ML PIGGYBACK 200 MG IV (02:31)
[2021-07-03] MEDS: LIDO 1%/SOD BICARB 8.4% (10ML) 10 ML SYRINGE INJ (02:32)
[2021-07-03 02:37] LABS: Add Manual Diff / Slide Review NO; Basophils Absolute Auto 0 /uL (0-100); Basophils Percent Auto 0.4 % (0-2); Eosinophils Absolute Auto 200 /uL (0-450); Eosinophils Percent Auto 2.3 % (2-4); Hematocrit 34.4 % (41-53); Hemoglobin 11.5 g/dL (13.5-17.5); Lymphocytes Absolute Auto 2000 /uL (1100-4500); Lymphocytes Percent Auto 19.1 % (25-40); Mean Corpuscular HGB Conc 33.5 % (30-36); Mean Corpuscular Hemoglobin 29.4 PG (26-34); Mean Corpuscular Volume 87.6 fL (80-100); Monocytes Absolute Auto 700 /uL (0-900); Neutrophils Absolute Auto 7500 /uL (1500-7000); Neutrophils Percent Auto 71.2 % (50-75); Platelet Count 255 X10^3/uL (150-400); Red Blood Cell Count 3.93 X10^6/uL (4.5-5.9); Red Cell Distribution Width 13.5 % (11.6-14.8); White Blood Cell Count 10.5 X10^3/uL (4.5-11.0)
--- NOTE | 2021-07-03 02:40 | DI.RAD.S_ITS ---
PROCEDURE: XR FOREARM LT 2V INDICATIONS: large abscess, possible foreign body TECHNIQUE: 2 views of the forearm were acquired. COMPARISON: [facility], CT, CT UE LT W CON, 07/03/2021, 7:41. FINDINGS: Bones: No fractures or dislocations. No suspicious bony lesions. Soft tissues: Soft tissue swelling is seen proximally. No soft tissue gas is seen. No radiopaque foreign bodies are seen. IMPRESSION: Proximal soft tissue swelling seen, without soft tissue gas. Note: No significant discrepancy from the preliminary report. Dictated by: Horacio Martinez M.D. on 07/03/2021 at 7:06 Approved by: Horacio Martinez M.D. on 07/03/2021 at 7:07
[2021-07-03 03:24] LABS: COVID19 - ADMIT (NP swab/PCR) Negative (Negative)
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
--- NOTE | 2021-07-03 06:24 | DI.CT.S_ITS ---
PROCEDURE: CT UE LT W CON INDICATIONS: IVDU, cellulitis with abscess s/p I+D TECHNIQUE: After the administration of intravenous contrast, 3 mm axial sections acquired of the left forearm, with coronal and sagittal reformats. COMPARISON: [facility], CR, XR FOREARM LT 2V, 07/03/2021, 2:45. FINDINGS: Image quality: Excellent. Bones: No significant bony abnormality is seen. Soft tissues: Soft tissue swelling and fatty stranding can be seen, particularly involving the proximal forearm. No rim enhancing fluid collection is seen to suggest abscess. Mild, poorly defined fluid can be seen along the palmar aspect of the proximal forearm. No soft tissue gas is identified. IMPRESSION: Negative for drainable abscess. Soft tissue cellulitis and potential phlegmon seen. No soft tissue gas is seen. Note: No significant discrepancy from the preliminary report. Dictated by: Horacio Martinez M.D. on 07/03/2021 at 6:42 Approved by: Horacio Martinez M.D. on 07/03/2021 at 6:45
[2021-07-03] MEDS: SODIUM CHLORIDE 0.9% 1,000 ML 150 ML IV ×2 (06:48→18:23)
[2021-07-03] MEDS: ENOXAPARIN 40 MG/0.4 ML SYRINGE SUBCUT (10:19)
[2021-07-03] MEDS: VANCOMYCIN 1,250 MG/250 ML PIGGYBACK 200 MG IV ×2 (10:19→18:22)
[2021-07-04] VITALS (8 sets, daily range): BP systolic 101–116; BP diastolic 51–72; PULSE 70–82; RESP 18; TEMP 35.8–37; O2SAT 97–100
[2021-07-04] MEDS: SODIUM CHLORIDE 0.9% 1,000 ML 150 ML IV ×3 (02:32→18:38)
[2021-07-04] MEDS: VANCOMYCIN 1,250 MG/250 ML PIGGYBACK 200 MG IV ×2 (02:32→11:37)
[2021-07-04 07:21] LABS: BUN Creatinine Ratio 11.1 (6-22); Blood Urea Nitrogen 8 mg/dL (9-20); Calcium 8.9 mg/dL (8.4-10.2); Carbon Dioxide 26 mmol/L (22-32); Chloride 103 mmol/L (98-107); Estimated Glomerular Filt Rate > 60.0 mL/min (>60); Glucose 85 mg/dL (70-100); HEMOLYSIS < 15 (0-50); Sodium 138 mmol/L (137-145)
[2021-07-04 07:26] LABS: Add Manual Diff / Slide Review NO; Basophils Absolute Auto 0 /uL (0-100); Basophils Percent Auto 0.4 % (0-2); Eosinophils Absolute Auto 400 /uL (0-450); Hematocrit 37.7 % (41-53); Hemoglobin 12.2 g/dL (13.5-17.5); Lymphocytes Absolute Auto 3300 /uL (1100-4500); Lymphocytes Percent Auto 30.8 % (25-40); Mean Corpuscular HGB Conc 32.3 % (30-36); Mean Corpuscular Hemoglobin 28.8 PG (26-34); Monocytes Absolute Auto 800 /uL (0-900); Monocytes Percent Auto 7.7 % (3-14); Neutrophils Absolute Auto 6100 /uL (1500-7000); Neutrophils Percent Auto 57.1 % (50-75); Platelet Count 337 X10^3/uL (150-400); Red Blood Cell Count 4.24 X10^6/uL (4.5-5.9); Red Cell Distribution Width 13.5 % (11.6-14.8); White Blood Cell Count 10.7 X10^3/uL (4.5-11.0)
--- NOTE | 2021-07-04 09:40 | DI.RAD.S_ITS ---
PROCEDURE: XR CHEST FOR PICC 1V INDICATIONS: PICC Placement COMPARISON: [facility], , XR CHEST 1V, 12/08/2019, 12:34. FINDINGS: PICC was placed by the intravenous therapy team from the right side. Fluoroscopic spot film demonstrates the tip of PICC projecting to the area of SVC. IMPRESSION: Tip of PICC projects to the area of proximal SVC. Dictated by: Tita Alvarez M.D. on 07/04/2021 at 10:57 Approved by: Tita Alvarez M.D. on 07/04/2021 at 10:58
--- NOTE | 2021-07-04 10:05 | PC.NURSE ---
Patients IV infiltrated this AM, removed, patient tolerated. Attempted two IV insertions, spoke to MD, PICC line ordered. Patient tolerated procedure. IV fluids and ABX restarted. LUE dressing removed and changed by MD. Limb remains edematous, erythemic, patient denies pain.
[2021-07-04 10:58] LABS: Vancomycin Trough 13.3 ug/mL (10-20)
[2021-07-04] MEDS: VANCOMYCIN TROUGH 1 REQUEST MISC (11:40)
[2021-07-04] MEDS: ENOXAPARIN 40 MG/0.4 ML SYRINGE SUBCUT (11:44)
--- NOTE | 2021-07-04 14:08 | CM.DANOTE ---
Patient is a 31 year old male who was admitted on 07/03/21 for Abscess. Pt has [employer] and [facility] for insurance and his PCP is not listed or established. EMR was reviewed. Per MD, pt with hx of polysubstance abuse (heroin, meth, cocaine) and hx of endocarditis and PE a couple years ago. Pt currently getting IV-Abx and per MD can likely d/c on oral abx pending final cultures. Per Surgeon Consult, no further I&D or surgical intervention needed at this time. SW met bedside with pt and explained role and pt confirms that he moved back to [place] about 6 mo or so ago after his father Kole and pt had been clean from drugs while he was away from [place] and on a Suboxone Tx program but then felt that he didn't need the MAT tx anymore. Pt states he slipped back into his old ways with friends and started using drugs again and has been staying with friends and couch surfing but that he has begun burning his bridges with friends lately. Pt is independent with ADL's at baseline and drives but does not have a current working vehicle. Pt states his mom and mom's live in [place] and he is waiting to confirm that he can stay with his mom at d/c. Pt states he is willing to take daily drug tests to prove he will remain drug free to stay with his mom as he is more motivated now to get his life back on track. Pt states he has a hx of using [facility] and plans to call them at d/c to get re-established for MAT tx and support to remain drug free. Pt has used [employer] recently for a few nights to stay at a Hotel and he states he was very thankful to have a clean bed, shower, and quiet space to stay. SW discussed possibility of [facility] Motel Voucher program for a night or two at d/c if his mom is not quite willing to let him stay right at d/c and pt has never utilized [facility] before. Plan: SW to follow closely for final cultures to return to confirm pt can d/c on orals and further discussion with pt if his mom has agreed to allow him to stay at d/c vs placing call to [facility] motel voucher program. Aida Booker, LIQUOR ESTABLISHMENT MANAGER Discharge Planning/Care Management CM Discharge Assessment Start: 07/04/21 14:06 Freq: Status: Active Protocol: Document 07/04/21 14:06 BF (Rec: 07/04/21 14:08 BF [id number]) Discharge Planning Assessment Assigned Oracle Data Warehouse Developer Brooke, MSW DPOA/Assigned Designee Name informally mother Advance Directives? No Advance Directives on File No History Provided By Patient,Medical Record Has Patient been admitted in last 30 No days? Prior Living Arrangements Homeless Comment Has been staying with friends but has local mother Household Members friend(s) Type of transporation used prior to Relies on Others admit Independent with ADL's Yes Is patient alert and oriented? Yes Caregiver for Another No Barriers to Discharge No Comment Unless cannot d/c on orals and needs IV-Abx, then barriers to d/c due to drug abuse Discharge Plan Home Transportation Arrangement mother or medicaid transport Referrals Initiated None needed Review Status In Process Please Provide Date Initial DC 07/03/21 Assessment Was Performed Next Review Type Continued Stay Review
--- NOTE | 2021-07-04 15:47 | PM.PN.1 ---
Subjective Subjective Date Patient Seen: 07/04/21 Interval history: 31-year-old male with IVDU history and past history of MRSA presenting with left forearm abscess cellulitis. Admission wound culture from I and D growing group a strep. Exam Vital Signs (past 8 hours): - 07/04/21 08:46 07/04/21 13:00 Temperature 96.4 F L Pulse Rate 81 Respiratory Rate 18 Blood Pressure 101/51 L Pulse Oximetry 97 100 Oxygen Delivery Method Room Air Oxygen Flow Rate 0 Narrative Exam Narrative: General: Alert and cooperative male in no acute distress There is moderate soft tissue edema and macular erythema of the left forearm extending to above the elbow. There is a pinpoint surgical incision in the mid left forearm with oozing of pus from this area. Objective Labs Result Diagrams: 07/04/21 06:55 07/04/21 06:55 Labs: Laboratory Results - last 24 hr 07/04/21 07/04/21 07/04/21 06:55 06:55 10:15 WBC 10.7 RBC 4.24 L Hgb 12.2 L Hct 37.7 L MCV 89.0 MCH 28.8 MCHC 32.3 RDW 13.5 Plt Count 337 Neut % (Auto) 57.1 Lymph % (Auto) 30.8 [place] % (Auto) 7.7 Eos % (Auto) 4.0 Baso % (Auto) 0.4 Neut # (Auto) 6100 Lymph # (Auto) 3300 [place] # (Auto) 800 Eos # (Auto) 400 Baso # (Auto) 0 Sodium 138 Potassium 4.0 Chloride 103 Carbon Dioxide 26 BUN 8 L Creatinine 0.72 Estimated GFR > 60.0 BUN/Creatinine Ratio 11.1 Glucose 85 Calcium 8.9 Vancomycin Trough 13.3 PFSH Medical History Heroin dependence Homeless Surgical History Tricuspid valve replaced Social History household members: friend(s) Smoking Status: Former smoker substance use type: heroin Assessment & Plan Assessment & Plan narrative: 1. Left arm cellulitis with abscess, stable -abscess incision and drainage on 07/03 in the ED growing group a strep -CT scan showed phlegmon -blood cultures negative -penicillin IV q.4 hours -discontinue vancomycin -requested Dr. Akers consult to see if I and D needs to be extended to allow for improved drainage of pus -patient can likely discharge tomorrow on oral antibiotic if clinically stable with negative blood cultures 2. IV substance abuse with heroin, meth -currently not in withdrawal -he is interested in quitting -VINNIE consult -hepatitis panel pending 3. Anemia -mild, hemoglobin 11.5 -no evidence of bleeding, no need for transfusion CODE: Full Proxy: Miriam Troncoso, Mother Time Spent With Patient Critical Care time: I spent a total of [] minutes of critical care time on this patient's care today; this time is exclusive of procedural time.
--- NOTE | 2021-07-04 16:17 | P.CONS_ITS ---
History of Present Illness Consult details Date Patient Seen: 07/04/21 Time Patient Seen: 12:30 Chief complaint: abscess on arm x3 days Reason for consult: arm abscess, left forearm Requesting provider: [place] Narrative: 3+ days of abscess left forearm. I and D in ED last evening. Feels better, has stopped draining as much. Used meth vs heroine in the site (a dwayne did it for him). No evidence of withdrawal states the patient Meds Home Medications and Allergies Home Medications Medication Instructions Recorded Confirmed Type No Known Home Medications 12/08/19 12/08/19 History Allergies Allergy/AdvReac Type Severity Reaction Status Date / Time Sulfa (Sulfonamide Allergy Intermediate Verified 12/08/19 12:29 Antibiotics) [SULFA (SULFONAMIDE ANTIBIOTICS)] Review of Systems Review of Systems ROS: Yes All systems reviewed with the patient and are negative except as othe rwise documented Exam Vital Signs (past 8 hours): - 07/04/21 08:46 07/04/21 13:00 Temperature 96.4 F L Pulse Rate 81 Respiratory Rate 18 Blood Pressure 101/51 L Pulse Oximetry 97 100 Oxygen Delivery Method Room Air Oxygen Flow Rate 0 Const General: cooperative, disheveled and lethargic Nutritional Appearance: average body habitus Orientation: alert and oriented x3 HENMT Head: normocephalic and atraumatic Teeth and gingiva: abnormal tooth or associated gingiva and poor dentition Eyes Periorbital: periorbital findings normal Sclera: sclerae normal Neck Neck: trachea midline Resp Effort & Inspection: normal respiratory effort and able to speak in complete sentences Cardio Rate: regular rate Rhythm: regular rhythm GI Palpation: soft Skin General: erythema and excoriations Lesions: lesion noted Wounds: wounds noted Other: Multiple scabs on bilateral arms. left dorsal forearm with erythema, enduration and a well drain abscess. Objective Labs Result Diagrams: 07/04/21 06:55 07/04/21 06:55 Labs: Laboratory Results - last 24 hr 07/04/21 07/04/21 07/04/21 06:55 06:55 10:15 WBC 10.7 RBC 4.24 L Hgb 12.2 L Hct 37.7 L MCV 89.0 MCH 28.8 MCHC 32.3 RDW 13.5 Plt Count 337 Neut % (Auto) 57.1 Lymph % (Auto) 30.8 [place] % (Auto) 7.7 Eos % (Auto) 4.0 Baso % (Auto) 0.4 Neut # (Auto) 6100 Lymph # (Auto) 3300 [place] # (Auto) 800 Eos # (Auto) 400 Baso # (Auto) 0 Sodium 138 Potassium 4.0 Chloride 103 Carbon Dioxide 26 BUN 8 L Creatinine 0.72 Estimated GFR > 60.0 BUN/Creatinine Ratio 11.1 Glucose 85 Calcium 8.9 Vancomycin Trough 13.3 PFSH Medical History Heroin dependence Homeless Surgical History Tricuspid valve replaced Social History household members: friend(s) Tobacco & Substance Use Smoking Status: Former smoker substance use type: heroin Assessment & Plan Assessment & Plan narrative: Left forearm abscess from IVDA. Adequately drained. On IV Vanco awaiting cultures. No further recommendations COVID-19 COVID-19 status: Negative Time Spent With Patient Time with patient: 30 to 49 minutes with 50% spent counseling/coordinating care Critical Care time: I spent a total of [] minutes of critical care time on this patient's care today; this time is exclusive of procedural time.
[2021-07-04] MEDS: DEXTROSE 5% IV ×2 (18:37→23:03)
[2021-07-04] MEDS: WATER IV ×2 (18:37→23:03)
[2021-07-04] MEDS: PENICILLIN POTASSIUM IV ×2 (18:37→23:03)
[2021-07-04] MEDS: cloNIDine 0.1 MG TABLET PO (23:39)
[2021-07-05] MEDS: WATER IV ×3 (03:17→10:49)
[2021-07-05] MEDS: DEXTROSE 5% IV ×3 (03:17→10:49)
[2021-07-05] MEDS: SODIUM CHLORIDE 0.9% 1,000 ML 150 ML IV (03:17)
[2021-07-05] MEDS: PENICILLIN POTASSIUM IV ×3 (03:17→10:49)
[2021-07-05 05:36] VITALS: BP 98/53; PULSE 66; RESP 16; TEMP 37.4; O2SAT 97
[2021-07-05 07:52] VITALS: O2SAT 100
--- NOTE | 2021-07-05 09:17 | P.DS_ITS ---
History of Present Illness History of Present Illness Chief complaint: abscess on arm x3 days Narrative: Mr. 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 He notes about two days ago he had swelling and pain in his left arm near his wrist. This continued to worsen, he noticed he had slight pus draining. He had no chills. He has tolerated food. He has no cough, shortness or breath, chest pain, abdominal pain, nausea, vomiting. He last used yesterday, and he says he is currently not feeling as though he his withdrawing. He has been able to quit in the past and has been on suboxone previously. In the ED workup was done, vitals notable for heart rate 110s, temp 99.7. Labs notable for 10.5, hgb 11.5, plt 255. Na 136, creatinine 0.78. He had I+D of his abscess in the ED with good amount of pus drained. He felt better afterwards. He was ordered for IV fluids, and IV vancomycin and admitted for further treatment. 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 Left arm cellulitis with abscess s/p I+D 2. IV substance abuse with heroin, methamphetamines 3. Acute opiate withdrawal 4. Anemia 5. 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 Ford was admitted with a cellulitis with abscess. His wound was growing group a strep bacteria. His blood cultures were negative at discharge. He had surgery consult who determined he needed no further surgical drainage after I+D in ED. He was discharged on oral antibiotics. He does have substance abuse problem, he began withdrawing in the hospital, but he declined suboxone. He wanted to go home. He was given resource by social work. Exam Vital Signs (past 8 hours): Oxygen Delivery Method Room Air Oxygen Flow Rate 0 Narrative Exam Narrative: General:? Alert and cooperative male in no acute distress EXT: moderate edema and erythema of arm Objective Labs Result Diagrams: 07/04/21 06:55 07/04/21 06:55 Labs: Laboratory Results - last 24 hr 07/03/21 02:25 Hepatitis Panel Comment Hepatitis A IgM Ab Negative Hep Bs Antigen Negative Hep B Core IgM Ab Negative Hepatitis C Antibody 1.0 H Hepatitis C RNA Quant Hcv not detected HCV RNA (PCR) log10 TNP Ref Lab Notation Comment PFSH Medical History Heroin dependence Homeless Surgical History Tricuspid valve replaced Social History household members: friend(s) Smoking Status: Former smoker substance use type: heroin Discharge Plan Discharge Plan Patient Disposition: Home Provider Discharge Comment: Mr. Ford was admitted with a cellulitis with abscess from a strep infection. He improved with draining the abscess and with antibiotics. He was given antibiotics to take for an additional week once he left the hospital. He was given resources to help quite substance abuse. Discharge orders & Medications Prescriptions: New amoxicillin 500 mg tablet 500 mg PO Q8H Qty: 24 RF: 0 Discharge Health Status Multidrug resistant organism: No MDRO Diet/Activity/Treatments Diet: Regular
--- NOTE | 2021-07-05 11:26 | PC.NURSE ---
Pt arousable. grumbling and grunting at staff. Sleeping most of the morning. Went in to give Pt's ordered meds and found he had disconnected his picc line and was in the shower. Pt refused meds.Pt stating he was going home. Spoke with Dr. Deng who had written orders for discharge. Pt readied for d/c instructed on PO antibiotics and when to take. Pt gathered belongings and was escorted via w/c to main entrance.
[2021-07-06 13:02] LABS: HBsAg Screen Negative (Negative); Hepatitis A Antibody IgM Negative (Negative); Hepatitis B Core Antibody IgM Negative (Negative); Hepatitis C Quant HCV Not Detected IU/mL (.)
== END 2021-07-05 11:15 | disposition home or self-care (01) | DRG 383 ==
LOC: ED 05:12 → AC 05:24
PROVIDERS: Admitting Provider Internal Medicine; Emergency Provider Emergency Medicine; Referring Provider Emergency Medicine; Visit Provider Internal Medicine
DX: L03.114 Cellulitis of left upper limb (principal); B95.0 Streptococcus, group A, as the cause of diseases classified elsewhere; F11.20 Opioid dependence, uncomplicated; F15.10 Other stimulant abuse, uncomplicated; D64.9 Anemia, unspecified; Z95.2 Presence of prosthetic heart valve; Z59.01 Sheltered homelessness; Z87.891 Personal history of nicotine dependence; Z20.822 Contact with and (suspected) exposure to COVID-19
CPT/HCPCS: 10060; 36415; 36569; 73090; 73201; 80048; 80074; 80202; 85025; 87040; 87070; 87147; 87205; 87635; 94760; 96361; 96365; 96366; 99232; 99284; 99285; C9803; J1650; J2540; Q9967

== ENCOUNTER 2021-07-22 21:52 | Emergency (ER) | payer OTHER, MEDICAID, SELFPAY ==
[2021-07-03 17:50] VITALS: BMI 25.4
[2021-07-22 21:56] VITALS: BP 117/76; PULSE 88; RESP 16; TEMP 36.8; O2SAT 99
--- NOTE | 2021-07-22 22:05 | PC.NURSE ---
EMS reported pt had syringes in his pockets and they were unsure if syringes had anything in them. Removed pt jacket, vest, and shirt related to pt care and placed into belonging bag. Assisted pt to empty pant pockets for safety and pt noted to have x3 empty syringes, flashlight device, tourniquet, alcohol swab, and x2 phones. Items placed on bedside table with syringes out of reach, pt verbalizes understanding.
[2021-07-22 22:21] LABS: Add Manual Diff / Slide Review NO; Basophils Absolute Auto 0 /uL (0-100); Basophils Percent Auto 0.4 % (0-2); Eosinophils Absolute Auto 200 /uL (0-450); Eosinophils Percent Auto 3.5 % (2-4); Hematocrit 33.5 % (41-53); Hemoglobin 10.9 g/dL (13.5-17.5); Lymphocytes Absolute Auto 1700 /uL (1100-4500); Lymphocytes Percent Auto 32.1 % (25-40); Mean Corpuscular HGB Conc 32.7 % (30-36); Mean Corpuscular Hemoglobin 28.5 PG (26-34); Mean Corpuscular Volume 87.1 fL (80-100); Monocytes Absolute Auto 400 /uL (0-900); Monocytes Percent Auto 6.9 % (3-14); Neutrophils Absolute Auto 3000 /uL (1500-7000); Neutrophils Percent Auto 57.1 % (50-75); Platelet Count 242 X10^3/uL (150-400); Red Blood Cell Count 3.84 X10^6/uL (4.5-5.9); Red Cell Distribution Width 13.9 % (11.6-14.8); White Blood Cell Count 5.3 X10^3/uL (4.5-11.0)
[2021-07-22] MEDS: LIDOCAINE 1% W/EPI 1 ML SUBCUT (22:25)
[2021-07-22] MEDS: SODIUM CHLORIDE 0.9% 1,000 ML 1000 ML IV (22:25)
[2021-07-22 22:32] LABS: Alanine Aminotransferase 23 IU/L (<50); Albumin 3.9 g/dL (3.5-5.0); Albumin Globulin Ratio 1.1 (1.0-2.8); Alkaline Phosphatase 87 U/L (38-126); Aspartate Aminotransferase 30 IU/L (17-59); BUN Creatinine Ratio 18.6 (6-22); Bilirubin Total 0.5 mg/dL (0.2-1.3); Blood Urea Nitrogen 16 mg/dL (9-20); Calcium 8.9 mg/dL (8.4-10.2); Carbon Dioxide 27 mmol/L (22-32); Chloride 103 mmol/L (98-107); Estimated Glomerular Filt Rate > 60.0 mL/min (>60); Globulin 3.6 g/dL (1.7-4.1); Glucose 97 mg/dL (70-100); HEMOLYSIS < 15 (0-50); Sodium 139 mmol/L (137-145); Total Protein 7.5 g/dL (6.3-8.2)
[2021-07-22 22:38] VITALS: PULSE 89; O2SAT 96
--- NOTE | 2021-07-22 22:55 | ED.SYNCOPE ---
HPI - Syncope General Chief Complaint: Syncope Stated Complaint: Syncope Time Seen by Provider: 07/22/21 22:04 Source: patient and EMS Mode of arrival: EMS History of Present Illness HPI narrative: 31-year-old male daily smoker with history of IV drug abuse presents by EMS for evaluation of what sounds like a syncopal episode. [place] and had [place] drinking, which is atypical for him, he is a very poor historian but apparently either fell asleep or had an episode in which he passed out briefly. There is no report of injury such as head neck or back. He has been seen by us in the past with an abscess in his left forearm which is looking much better, he does admit to having abscess that has been spontaneously draining in the small of his back or on the left side. He denies any fever or chills. He denies any trouble with bowel or bladder. Related Data Previous Rx's Medication Instructions Recorded amoxicillin 500 mg tablet 500 mg PO Q8H #24 tab 07/05/21 doxycycline hyclate 100 mg tablet 100 mg PO BID #20 tab 07/23/21 Allergies Allergy/AdvReac Type Severity Reaction Status Date / Time Sulfa (Sulfonamide Allergy Intermediate Verified 12/08/19 12:29 Antibiotics) [SULFA (SULFONAMIDE ANTIBIOTICS)] Review of Systems Review of Systems Narrative: GENERAL: Denies chills, fatigue, malaise, fever, sweats. HEENT: Denies sinus pain, ear pain, sore throat, difficulty swallowing, dizziness. RESPIRATORY: Denies dyspnea, cough, wheezing, hemoptysis, sputum. CARDIOVASCULAR: See HPI GASTROINTESTINAL: Denies nausea, vomiting, abdominal pain, diarrhea, constipation, melena. : Denies dysuria, frequency, incontinence, hematuria, urinary retention. MUSCULOSKELETAL: denies weakness, joint pain, or bony pain SKIN: See HPI NEUROLOGIC: Denies weakness, headache, numbness, change in speech, confusion, seizures, incoordination. PSYCHIATRIC: No concerning psychosocial issues. 12 point review of systems is negative except for those stated above Patient History Medical History Heroin dependence Homeless Surgical History Tricuspid valve replaced Social History household members: friend(s) Smoking Status: Current every day smoker substance use type: heroin Smoking Status: Current every day smoker tobacco type: vaping alcohol intake frequency: 0-2 drinks per day Substance Use Type: heroin and methamphetamine Exam Narrative Exam Narrative: GENERAL: [31 year old patient appears stated age. Well-developed patient, in mild distress. HEAD: Atraumatic. Normocephalic. EYES: Pupils equal round and reactive. Extraocular motions intact. No scleral icterus. No injection or drainage. ENT: Nose without bleeding, purulent drainage. Throat without erythema, tonsillar hypertrophy or exudate. Airway patent. NECK: Trachea midline. Non tender CARDIOVASCULAR: Regular rate and rhythm without murmurs, gallops, or rubs. RESPIRATORY: Clear to auscultation. Breath sounds equal bilaterally. No wheezes, rales, or rhonchi. GASTROINTESTINAL: Abdomen soft, non-tender, nondistended. EXTREMITIES: No edema or joint tenderness. BACK: Nontender without deformity or crepitance. No flank tenderness. NEURO: AOx3. SKIN: 2 x 3 cm area of induration with possible near lying fluctuance and some surrounding erythema on left side, just above his hip Initial Vital Signs Initial Vital Signs: Vital Signs Temperature 98.2 F 07/22/21 21:56 Pulse Rate 88 07/22/21 21:56 Respiratory Rate 16 07/22/21 21:56 Blood Pressure 117/76 07/22/21 21:56 Pulse Oximetry 99 07/22/21 21:56 Procedures Abscess I/D I&D #1: Site: other (left flank) Local Anesthetic: lidocaine 1% and with epi Amount of anesthesia used (mL): 6 Technique: incised with #11 blade Amount of fluid expressed (mL): 6 Irrigation: No Packing used?: none Complications: pain Course Orders Ordered: ED Orders 07/22/21 22:05 EKG-12 Lead Stat 07/22/21 22:10 Complete Blood Count AUTO DIFF Stat Comprehensive Metabolic Panel Stat 07/23/21 00:15 Urine Drug Screen, Rapid Stat Discontinued Medications Doxycycline Hyclate (Doxycycline Hyclate 100 Mg Tablet) 100 mg PO NOW ONE Stop: 07/23/21 03:11 Last Admin: 07/23/21 04:17 Dose: 100 mg Documented by: [place] Sodium Chloride (Normal Saline 0.9%) 1,000 mls @ 1,000 mls/hr IV BOLUS ONE Stop: 07/22/21 23:03 Last Infusion: 07/23/21 00:26 Dose: 0 mls/hr Documented by: Admin: 07/22/21 22:25 Dose: 1,000 mls/hr Documented by: APRIL Lidocaine/Epinephrine (Lidocaine 1% W/Epi) 1 ml SUBCUT NOW ONE Stop: 07/22/21 22:14 Last Admin: 07/22/21 22:25 Dose: 1 ml Documented by: APRIL Vital Signs Vital signs: Vital Signs - 8 hr 07/22/21 21:56 07/22/21 22:38 07/22/21 23:00 Temperature 98.2 F Pulse Rate 88 89 87 Respiratory Rate 16 Blood Pressure 117/76 Pulse Oximetry 99 96 96 07/22/21 23:10 07/22/21 23:30 07/23/21 00:00 Temperature Pulse Rate 86 85 81 Respiratory Rate Blood Pressure 97/53 L 96/54 L 96/53 L Pulse Oximetry 96 97 97 07/23/21 00:30 07/23/21 01:00 07/23/21 01:30 Temperature Pulse Rate 80 77 66 Respiratory Rate Blood Pressure 98/61 97/53 L Pulse Oximetry 97 97 100 07/23/21 01:31 07/23/21 02:00 07/23/21 02:30 Temperature Pulse Rate 59 L 72 72 Respiratory Rate Blood Pressure 101/61 95/59 L 94/60 Pulse Oximetry 100 100 99 07/23/21 03:00 07/23/21 03:30 07/23/21 04:00 Temperature Pulse Rate 67 58 L 71 Respiratory Rate Blood Pressure 110/70 105/68 Pulse Oximetry 96 98 100 07/23/21 04:30 07/23/21 05:00 Temperature Pulse Rate 72 72 Respiratory Rate Blood Pressure 104/62 103/62 Pulse Oximetry 100 98 MDM - Syncope Lab Data Result diagrams: 07/22/21 22:10 07/22/21 22:10 Labs: Lab Results 07/22/21 07/22/21 Range/Units 22:10 22:10 WBC 5.3 (4.5-11.0) X10^3/uL RBC 3.84 L (4.5-5.9) X10^6/uL Hgb 10.9 L (13.5-17.5) g/dL Hct 33.5 L (41-53) % MCV 87.1 (80-100) fL MCH 28.5 (26-34) PG MCHC 32.7 (30-36) % RDW 13.9 (11.6-14.8) % Plt Count 242 (150-400) X10^3/uL Neut % (Auto) 57.1 (50-75) % Lymph % (Auto) 32.1 (25-40) % [place] % (Auto) 6.9 (3-14) % Eos % (Auto) 3.5 (2-4) % Baso % (Auto) 0.4 (0-2) % Neut # (Auto) 3000 (8994-0295) /uL Lymph # (Auto) 1700 (7713-6367) /uL [place] # (Auto) 400 (0-900) /uL Eos # (Auto) 200 (0-450) /uL Baso # (Auto) 0 (0-100) /uL Sodium 139 (137-145) mmol/L Potassium 4.0 (3.4-5.1) mmol/L Chloride 103 (98-107) mmol/L Carbon Dioxide 27 (22-32) mmol/L BUN 16 (9-20) mg/dL Creatinine 0.86 (0.66-1.25) mg/dL Estimated GFR > 60.0 (>60) mL/min BUN/Creatinine Ratio 18.6 (6-22) Glucose 97 (70-100) mg/dL Calcium 8.9 (8.4-10.2) mg/dL Total Bilirubin 0.5 (0.2-1.3) mg/dL AST 30 (17-59) IU/L ALT 23 (<50) IU/L Alkaline Phosphatase 87 (38-126) U/L Total Protein 7.5 (6.3-8.2) g/dL Albumin 3.9 (3.5-5.0) g/dL Globulin 3.6 (1.7-4.1) g/dL Albumin/Globulin Ratio 1.1 (1.0-2.8) MDM Narrative Medical decision making narrative: 31-year-old male with possible syncopal episode presents with a very reassuring physical exam and labs. Vitals remained stable, patient allowed to sleep overnight while waiting for a ride. Patient is awake, alert and oriented. Patient given return precautions and questions have been answered to his apparent satisfaction Discharge Plan Departure Patient Disposition: Home Clinical Impression: Abscess of skin or subcutaneous tissue Instructions: DI for Syncope in Adults (Fainting) Activity Restrictions/Additional Instructions: *You have been diagnosed with [syncopal episode and left flank abscess. Your history, physical exam and labs are very reassuring *What to do: *Please continue to take your regular medications as directed. [x ] New medication prescriptions sent to your pharmacy: [ [facility]] [ ] New medication written as a paper prescription [ ] No new medications given *Please follow up with your primary care provider in 2-3 days, call for an appointment. Let them know you were seen in the Emergency Department and that we ask that you be seen in follow up. We will electronically transmit a record of today's note if your PCP is in our system *If you do not have a primary care provider please contact the [facility] Resource line at [phone]. They will ask some questions about your medical history and help get you set up with a doctor in the community. *Return to Emergency Department if you should have any new, worsening or concerning symptoms, such as [fever greater than 101 F, shaking chills, worsening pain, persistent vomiting or other bothersome symptoms] Prescriptions: New doxycycline hyclate 100 mg tablet 100 mg PO BID Qty: 20 0RF No Action amoxicillin 500 mg tablet 500 mg PO Q8H Qty: 24 0RF
[2021-07-22 23:00] VITALS: PULSE 87; O2SAT 96
[2021-07-22 23:10] VITALS: BP 97/53; PULSE 86; O2SAT 96
[2021-07-22 23:30] VITALS: BP 96/54; PULSE 85; O2SAT 97
[2021-07-23] VITALS (17 sets, daily range): BP systolic 94–110; BP diastolic 53–70; PULSE 58–81; O2SAT 96–100
[2021-07-23] MEDS: DOXYCYCLINE HYCLATE 100 MG TABLET PO (04:17)
== END 2021-07-23 08:35 | disposition home or self-care (01) ==
PROVIDERS: Emergency Provider Emergency Medicine
DX: R55 Syncope and collapse (principal); L02.212 Cutaneous abscess of back [any part, except buttock and flank]
CPT/HCPCS: 10060; 36415; 80053; 85025; 93005; 96360; 96361; 99284

== ENCOUNTER 2021-08-13 13:57 | Inpatient (IN) | payer OTHER, MEDICAID, SELFPAY ==
[2021-07-03 17:50] VITALS: BMI 25.4
[2021-08-13] VITALS (11 sets, daily range): BP systolic 95–120; BP diastolic 51–64; PULSE 89–101; RESP 16–18; TEMP 36.8–37.4; O2SAT 95–100; BMI 25.5
--- NOTE | 2021-08-13 14:29 | ED_ITS ---
HPI - Skin/Abscess/Foreign Bdy General Chief complaint: Skin/Abscess/Foreign Body Stated complaint: abscess on bum Time Seen by Provider: 08/13/21 14:09 Source: patient Mode of arrival: Ambulatory History of Present Illness HPI narrative: 31-year-old male daily smoker with history of IV drug abuse, recurrent abscess this is and cellulitis, as well as endocarditis presents with a chief complaint of a large, very painful abscess on his right buttock. He states he last injected here 7-10 days ago. It is out rate dizzy painful, particularly with any range of motion. He also has 1 on his anterior thigh. He desperately wants to quit using IV drugs. He has been here on multiple occasions in the past few months under similar circumstances. He denies systemic symptoms such as fever, chills, nausea, vomiting. He denies any chest pain or shortness of breath. He is not dizzy nor weak or lightheaded. Related Data Home Medications Medication Instructions Recorded Confirmed No Known Home Medications 08/13/21 08/13/21 Allergies Allergy/AdvReac Type Severity Reaction Status Date / Time Sulfa (Sulfonamide Allergy Intermediate Verified 08/13/21 14:09 Antibiotics) [SULFA (SULFONAMIDE ANTIBIOTICS)] Review of Systems Review of Systems Narrative: GENERAL: Denies chills, fatigue, malaise, fever, sweats. HEENT: Denies sinus pain, ear pain, sore throat, difficulty swallowing, dizziness. RESPIRATORY: Denies dyspnea, cough, wheezing, hemoptysis, sputum. CARDIOVASCULAR: Denies chest pain, palpitations, orthopnea, edema, GASTROINTESTINAL: Denies nausea, vomiting, abdominal pain, diarrhea, constipation, melena. : Denies dysuria, frequency, incontinence, hematuria, urinary retention. MUSCULOSKELETAL: denies weakness, joint pain, or bony pain SKIN: See HPI NEUROLOGIC: Denies weakness, headache, numbness, change in speech, confusion, seizures, incoordination. PSYCHIATRIC: No concerning psychosocial issues. 12 point review of systems is negative except for those stated above Patient History Medical History Heroin dependence Homeless Surgical History Tricuspid valve replaced Social History household members: friend(s) Smoking Status: Current every day smoker substance use type: heroin Smoking Status: Current every day smoker tobacco type: vaping alcohol intake frequency: 0-2 drinks per day Substance Use Type: heroin and methamphetamine Exam Narrative Exam Narrative: GENERAL: [31 year old patient appears stated age. Well-developed patient, in tearful, obviously in significant pain HEAD: Atraumatic. Normocephalic. EYES: Pupils equal round and reactive. Extraocular motions intact. No scleral icterus. No injection or drainage. ENT: Nose without bleeding, purulent drainage. Throat without erythema, tonsillar hypertrophy or exudate. Airway patent. NECK: Trachea midline. Non tender CARDIOVASCULAR: Regular rate and rhythm without murmurs, gallops, or rubs. RESPIRATORY: Clear to auscultation. Breath sounds equal bilaterally. No wheezes, rales, or rhonchi. GASTROINTESTINAL: Abdomen soft, non-tender, nondistended. EXTREMITIES: No edema or joint tenderness. BACK: Nontender without deformity or crepitance. No flank tenderness. NEURO: AOx3. SKIN: 10 cm abscess on right buttock with fluctuance and induration and surrounding erythema, additional small cutaneous abscess on anterior thigh. 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 swab/PCR) Stat Acetaminophen (Acetaminophen 325 Mg Tablet) 650 mg PO Q6HR PRN PRN Reason: Fever/Mild Pain (1-3) Hydrocodone Bitart/Acetaminophen (Hydrocodone/Acet 5/325 Tablet) 1 tab PO Q4HR PRN PRN Reason: Pain, Moderate (4-6) Docusate Sodium (Docusate 100 Mg Capsule) 100 mg PO BID [facility] Heparin Sodium (Porcine) (Heparin 5,000 Unit/Ml Vial) 5,000 unit SUBCUT BID [facility] Lactated Ringer's (Lactated Ringers) 1,000 mls @ 100 mls/hr IV CONT WEST Vancomycin HCl/Dextrose (Vancomycin) 2,000 mg in 400 mls @ 200 mls/hr IV NOW ONE Stop: 08/13/21 18:56 Morphine Sulfate (Morphine 2 Mg/Ml Inj) 2 mg IV Q4HR PRN PRN Reason: Pain, Moderate (4-6) Naloxone HCl (Naloxone 0.4 Mg/Ml Vial) 0.2 mg IV Q2MIN PRN PRN Reason: Opiate Reversal Ondansetron HCl (Ondansetron 4 Mg/2 Ml Inj) 4 mg IV Q8HR PRN PRN Reason: Nausea And Vomiting Sennosides (Sennosides 8.6 Mg Tablet) 17.2 mg PO BEDTIME WEST Discontinued Medications Hydromorphone HCl (Hydromorphone 1 Mg Inj) 1 mg IM NOW ONE Stop: 08/13/21 14:43 Last Admin: 08/13/21 14:48 Dose: 1 mg Documented by: CAROLINE Consultations Consultation #1: Discussed with on-call surgery, the size of this abscess would suggest it is extremely unlikely to be effectively treated at the bedside, patient historically is very difficult to control his pain and ring blocks have historically been a very difficult to perform on this patient. He is happy to take the patient to the OR, however his NPO status would suggest against a trip to the OR today, he requests admission to the hospitalist, NPO after midnight and likely I and D in the OR tomorrow Consultation #2: Hospitalist happy to accept Vital Signs Vital signs: Vital Signs - 8 hr 08/13/21 14:09 Temperature 98.3 F Pulse Rate 101 H Respiratory Rate 18 Blood Pressure 120/59 L Pulse Oximetry 98 Discharge Plan Departure Patient Disposition: Admitted as Observation Clinical Impression: Abscess of skin or subcutaneous tissue, Cellulitis of lower extremity Admit Date/Time: 08/13/21 14:49 Admit Provider: Aleta Orozco
--- NOTE | 2021-08-13 14:38 | PC.NURSE ---
Patient with hx of IV drug use, no recent injections into buttock but today with large erythemic area to right buttock and to right thigh which also has an area the patient has attempted to drain.
[2021-08-13] MEDS: HYDROMORPHONE 1 MG INJ IM (14:48)
[2021-08-13 15:57] LABS: COVID19 - ADMIT (NP swab/PCR) Negative (Negative)
--- NOTE | 2021-08-13 16:12 | P.HP_ITS ---
History of Present Illness History of Present Illness Date Patient Seen: 08/13/21 Chief complaint: abscess on bum Narrative: THIS IS AN UNFORTUNATE 31-YEAR-OLD MALE WITH A PAST MEDICAL HISTORY SIGNIFICANT FOR ILLICIT DRUG ABUSE. PATIENT PRESENTS TO THE HOSPITAL WITH PAIN TO THE BUTTOCKS AREA. PATIENT STATED THAT FOR LAST FEW DAYS BEEN HAVING SOME INCREASED PAIN TO THE AREA WELL INCREASE SWELLING TO THE AREA. HE REPORTED THAT HE USED THIS SITE TO INJECT HEROIN WELL. DENIES ANY INSECT BITES HE COULD BE AWARE OF NO FEVER OR CHILLS. NO TRAUMA REPORTED. PATIENT IS BEING REFERRED TO THE SURGICAL TEAM FOR SUSPECT ABSCESS TO THE BUTTOCK AREA. LABS ARE FAIRLY STABLE. Patient History Medical History Heroin dependence Homeless Surgical History Tricuspid valve replaced Comment: ENDOCARDITIS Family & Social History Social History: household members friend(s) Safety & Behavioral: Feels Safe in Current Yes Environment Been Physically Hurt or No Threatened By a Person Tobacco & Substance use: Smoking Status Current every day smoker alcohol intake frequency 0-2 drinks per day Substance Use Type heroin,methamphetamine Meds Home Medications and Allergies Home Medications Medication Instructions Recorded Confirmed Type No Known Home Medications 08/13/21 08/13/21 History Allergies Allergy/AdvReac Type Severity Reaction Status Date / Time Sulfa (Sulfonamide Allergy Intermediate Verified 08/13/21 14:09 Antibiotics) [SULFA (SULFONAMIDE ANTIBIOTICS)] Review of Systems Review of Systems Narrative: ALL SYSTEM REVIEWED. NEGATIVE UNLESS NOTED ABOVE IN HPI Exam Vital Signs (past 8 hours): - 08/13/21 14:09 08/13/21 14:52 08/13/21 15:00 Temperature 98.3 F Pulse Rate 101 H 97 H 94 H Respiratory Rate 18 Blood Pressure 120/59 L 103/57 L 108/52 L Pulse Oximetry 98 95 99 Oxygen Delivery Method Room Air Narrative Exam Narrative: NO ACUTE DISTRESS. PATIENT IS ALERT ORIENTED X3. APPEARS MUCH OLDER THAN STATED AGE. POOR DENTITION VITAL SIGNS STABLE HEAD ATRAUMATIC NORMOCEPHALIC NECK : SUPPLE WITHOUT ADENOPATHY NO CAROTID BRUITS EYE: EOMI, PERRLA, NORMAL CONJUNCTIVA; NO JAUNDICE CHEST: REGULAR RATE. NO RUBS. PMI IS NON DISPLACED. NO MURMURS; NORMAL S1- S2 PULMONARY: DECREASED BS OVER THE BASES. MILD BIBASILAR CRACKLES NOTED; NO INCREASED DULLNESS TO PERCUSSION ABDOMEN: SOFT. NONTENDER. NONDISTENDED. BOWEL SOUNDS ARE PRESENT IN ALL 4 QUADRANTS. NO MASS. EXTREMITIES: NO EDEMA.. NO CYANOSIS CLUBBING NOTED. NEURO: CRANIAL NERVES 2-12 GROSSLY INTACT. NO FOCAL NEUROLOGICAL DEFICIT NOTED. MSK: NORMAL RANGE OF MOTION FOR AGE. NO JOINT EFFUSION. SKIN: BUTTOCK AREA AND AREA OF INDURATION WHICH APPEAR TO BE AN ABSCESS. REDNESS APPRECIATED.. TENDER TO TOUCH. NO OPEN LESION/ DRAINAGE APPRECIATED. THERE IS ALSO AN AREA OF INDURATION ON THE RIGHT ANTERIOR THIGH. NONTENDER TO TOUCH. : NORMAL EXTERNAL GENITALIA. PSYCH : APPROPRIATE MOOD AND AFFECT. ALERT AWAKE ORIENTED X3 Objective Labs Labs: Laboratory Results - last 24 hr 08/13/21 14:51 SARS-CoV-2 (PCR) Negative Assessment & Plan Assessment & Plan narrative: PROBLEM LIST RT BUTTOCK ABSCESS. PRESENT ON ARRIVALLIKELY SECONDARY TO IV DRUG USE. SURGERY TO EVALUATE POSSIBLE RIGHT ANTERIOR THIGH ABSCESS WELL. PRESENT ON ARRIVAL SURGERY TO EVALUATE ILLICIT DRUG USE. EXTENSIVE COUNSELING GIVEN TOBACCO ABUSE. EXTENSIVE COUNSELING GIVEN PLAN PATIENT WILL BE STARTED ON ANTIBIOTICS WILL START ON VANCOMYCIN WELL CEFEPIME AND FLAGYL. REFERRED TO THE SURGICAL TEAM POSSIBLE I&D IN THE MORNING PER SURGICAL TEAM RECOMMENDATIONS CONSIDER CLINDAMYCIN WELL TO COUNTERACT STREPTOCOCCUS TOXIN IF INDICATED CLINICALLY FOLLOW CULTURES WHICH LIKELY WILL BE TAKEN DURING I&D? IN THE MORNING FOLLOW LABS DAILY GLASSES BUT HAS TOLERATED WATCH FOR SIGNS OF WITHDRAWAL FROM ILLICIT DRUGS WILL ADD ATIVAN WELL ORDERED NEEDED MEDICATION TO HELP WITH WITHDRAWAL SYMPTOMS MONITOR CLOSELY FOR ANY SIGN OF COMPLICATION POSTOPERATIVELY 5W'S PATIENT COUNSELING WILL BE GIVEN IN REGARD TO LIFESTYLE CHANGES INDICATED ADDITIONAL MANAGEMENT PER CLINICAL COURSE PROGNOSIS IS GUARDED DURATION OF STAY. POSSIBLE 7 DAYS Time Spent With Patient Critical Care time: I spent a total of [] minutes of critical care time on this patient's care today; this time is exclusive of procedural time.
--- NOTE | 2021-08-13 18:58 | DI.RAD.S_ITS ---
PROCEDURE: XR CHEST FOR PICC 1V INDICATIONS: PICC placement COMPARISON: [facility], , XR CHEST FOR PICC 1V, 07/04/2021, 9:49. FINDINGS: PICC was placed by the intravenous therapy team from the left side. Fluoroscopic spot film demonstrates the tip of PICC projecting to the area of mid SVC IMPRESSION: Tip of PICC projects to the area of mid SVC. Dictated by: Kamila Serrano MD, PhD on 08/13/2021 at 19:43 Approved by: Kamila Serrano MD, PhD on 08/13/2021 at 19:44
[2021-08-13 19:25] LABS: Add Manual Diff / Slide Review NO; Basophils Absolute Auto 0 /uL (0-100); Basophils Percent Auto 0.3 % (0-2); Eosinophils Absolute Auto 100 /uL (0-450); Eosinophils Percent Auto 0.7 % (2-4); Hematocrit 32.4 % (41-53); Hemoglobin 10.9 g/dL (13.5-17.5); Lymphocytes Absolute Auto 2200 /uL (1100-4500); Lymphocytes Percent Auto 21.5 % (25-40); Mean Corpuscular HGB Conc 33.7 % (30-36); Mean Corpuscular Hemoglobin 28.6 PG (26-34); Mean Corpuscular Volume 84.7 fL (80-100); Monocytes Absolute Auto 900 /uL (0-900); Monocytes Percent Auto 8.7 % (3-14); Neutrophils Absolute Auto 7000 /uL (1500-7000); Neutrophils Percent Auto 68.8 % (50-75); Platelet Count 235 X10^3/uL (150-400); Red Blood Cell Count 3.83 X10^6/uL (4.5-5.9); Red Cell Distribution Width 13.8 % (11.6-14.8); White Blood Cell Count 10.2 X10^3/uL (4.5-11.0)
[2021-08-13 19:46] LABS: BUN Creatinine Ratio 13.3 (6-22); Blood Urea Nitrogen 10 mg/dL (9-20); Calcium 8.3 mg/dL (8.4-10.2); Carbon Dioxide 25 mmol/L (22-32); Chloride 101 mmol/L (98-107); Estimated Glomerular Filt Rate > 60.0 mL/min (>60); Glucose 92 mg/dL (70-100); HEMOLYSIS < 15 (0-50); Potassium 3.7 mmol/L (3.4-5.1); Sodium 133 mmol/L (137-145)
[2021-08-13] MEDS: LACTATED RINGERS 1,000 ML 100 ML IV (20:20)
[2021-08-13] MEDS: VANCOMYCIN 2,000 MG/400 ML PIGGYBACK 200 MG IV (20:20)
[2021-08-13] MEDS: PIPERACILLIN/TAZO 4.5 GM in SODIUM CHLORIDE 0.9% 100 ML 200 ML IV (21:36)
[2021-08-13] MEDS: MORPHINE 2 MG/ML INJ 4 MG IV (21:37)
[2021-08-13] MEDS: GABAPENTIN 300 MG CAPSULE PO (21:39)
[2021-08-13] MEDS: MELATONIN 3 MG TABLET 6 MG PO (21:39)
[2021-08-13] MEDS: TRAMADOL 50 MG TABLET PO (21:39)
[2021-08-13] MEDS: TRAZODONE 100 MG TABLET PO (21:40)
[2021-08-13] MEDS: methocarbamoL 500 MG TABLET 750 MG PO (21:40)
[2021-08-13] MEDS: SENNOSIDES 8.6 MG TABLET 17.2 MG PO (21:40)
[2021-08-13] MEDS: LORazepam 2 MG/ML INJ 1 MG IV (21:59)
[2021-08-13] MEDS: HYDROMORPHONE 1 MG INJ IV (22:48)
[2021-08-14] VITALS (21 sets, daily range): BP systolic 83–115; BP diastolic 36–76; PULSE 65–86; RESP 10–20; TEMP 36.2–38.4; O2SAT 93–100; BMI 25.5
[2021-08-14] MEDS: LORazepam 2 MG/ML INJ 1 MG IV ×3 (01:28→22:13)
[2021-08-14] MEDS: PIPERACILLIN/TAZO 3.375 GM in SODIUM CHLORIDE 0.9% 100 ML 25 ML IV ×3 (01:28→18:11)
[2021-08-14] MEDS: diphenhydrAMINE 50 MG/ML VIAL 25 MG IV ×2 (01:50→21:15)
[2021-08-14] MEDS: VANCOMYCIN 1,500 MG/300 ML PIGGYBACK 150 MG IV ×3 (03:48→22:13)
[2021-08-14] MEDS: HYDROMORPHONE 1 MG INJ IV ×2 (03:48→21:15)
[2021-08-14] MEDS: ACETAMINOPHEN 325 MG TABLET 650 MG PO (04:07)
[2021-08-14 06:14] LABS: Alanine Aminotransferase 17 IU/L (<50); Albumin 2.8 g/dL (3.5-5.0); Albumin Globulin Ratio 0.8 (1.0-2.8); Alkaline Phosphatase 68 U/L (38-126); Aspartate Aminotransferase 31 IU/L (17-59); Bilirubin Total 0.4 mg/dL (0.2-1.3); Blood Urea Nitrogen 8 mg/dL (9-20); Calcium 7.4 mg/dL (8.4-10.2); Carbon Dioxide 27 mmol/L (22-32); Chloride 103 mmol/L (98-107); Estimated Glomerular Filt Rate > 60.0 mL/min (>60); Globulin 3.6 g/dL (1.7-4.1); Glucose 102 mg/dL (70-100); HEMOLYSIS 16 (0-50); Potassium 3.4 mmol/L (3.4-5.1); Sodium 137 mmol/L (137-145); Total Protein 6.4 g/dL (6.3-8.2)
[2021-08-14 06:15] LABS: Hematocrit 29.4 % (41-53); Hemoglobin 9.9 g/dL (13.5-17.5); Mean Corpuscular HGB Conc 33.6 % (30-36); Mean Corpuscular Hemoglobin 28.8 PG (26-34); Mean Corpuscular Volume 85.7 fL (80-100); Platelet Count 205 X10^3/uL (150-400); Red Blood Cell Count 3.43 X10^6/uL (4.5-5.9); Red Cell Distribution Width 13.9 % (11.6-14.8); White Blood Cell Count 7.7 X10^3/uL (4.5-11.0)
[2021-08-14 07:05] LABS: Neutrophils Percent Auto 67.2 % (50-75)
[2021-08-14 07:06] LABS: Add Manual Diff / Slide Review NO; Basophils Absolute Auto 0 /uL (0-100); Basophils Percent Auto 0.4 % (0-2); Eosinophils Absolute Auto 100 /uL (0-450); Lymphocytes Absolute Auto 1700 /uL (1100-4500); Lymphocytes Percent Auto 21.9 % (25-40); Monocytes Absolute Auto 700 /uL (0-900); Monocytes Percent Auto 9.5 % (3-14); Neutrophils Absolute Auto 5200 /uL (1500-7000)
--- NOTE | 2021-08-14 08:39 | P.PN_ITS ---
Subjective Subjective Interval history: 31-YEAR-OLD MALE WITH A HISTORY OF IV DRUG USE ADMITTED TO THE HOSPITAL WITH CELLULITIS/ABSCESS TO RIGHT BUTTOCK TODAY HE DID NOT HAVE ANY SIGNIFICANT COMPLAINTS DENIES ANY FEVER OR CHILLS OVERNIGHT NO NAUSEA VOMITING NO DIARRHEA DENIES ANY SHORTNESS OF BREATH. NO CHEST PAIN. NO CHEST PRESSURE AWARE OF POSSIBLE SURGICAL PROCEDURE THIS MORNING Exam Vital Signs (past 8 hours): - 08/14/21 03:00 08/14/21 04:00 08/14/21 04:07 Temperature 101.1 F H Pulse Rate Respiratory Rate 18 Blood Pressure Pulse Oximetry 93 08/14/21 04:12 Temperature 101.1 F H Pulse Rate 84 Respiratory Rate 16 Blood Pressure 102/40 L Pulse Oximetry 93 Oxygen Delivery Method Room Air Oxygen Flow Rate 0 Narrative Exam Narrative: NO ACUTE DISTRESS.? PATIENT IS ALERT ORIENTED X3.? APPEARS MUCH OLDER THAN STATED AGE.? POOR DENTITION VITAL SIGNS STABLE HEAD ATRAUMATIC NORMOCEPHALIC NECK : SUPPLE WITHOUT ADENOPATHY NO CAROTID BRUITS EYE:? EOMI, PERRLA, NORMAL CONJUNCTIVA; NO JAUNDICE CHEST:? REGULAR RATE.? ? NO RUBS.? PMI IS NON DISPLACED.? NO MURMURS; NORMAL S1- S2 PULMONARY:? DECREASED BS OVER THE BASES.? MILD BIBASILAR CRACKLES NOTED; NO INCREASED DULLNESS TO PERCUSSION ABDOMEN:? SOFT.? NONTENDER.? NONDISTENDED.? BOWEL SOUNDS ARE PRESENT IN ALL 4 QUADRANTS.? NO MASS. EXTREMITIES: NO EDEMA..? NO CYANOSIS CLUBBING NOTED. NEURO:? CRANIAL NERVES 2-12 GROSSLY INTACT. NO FOCAL NEUROLOGICAL DEFICIT NOTED. MSK:? NORMAL RANGE OF MOTION FOR AGE.? NO JOINT EFFUSION. SKIN:? BUTTOCK WITH AN AREA OF INDURATION WHICH APPEARS TO BE AN ABSCESS.? REDNESS APPRECIATED..? TENDER TO TOUCH.? NO OPEN LESION/ DRAINAGE APPRECIATED.? THERE IS ALSO AN AREA OF INDURATION ON THE RIGHT ANTERIOR THIGH.? NONTENDER TO TOUCH. :? NORMAL EXTERNAL GENITALIA. PSYCH :? APPROPRIATE MOOD AND AFFECT.? ALERT AWAKE ORIENTED X3 Objective Labs Result Diagrams: 08/14/21 05:15 08/14/21 05:15 Labs: Laboratory Results - last 24 hr 08/13/21 08/13/21 08/13/21 14:51 19:16 19:16 WBC 10.2 RBC 3.83 L Hgb 10.9 L Hct 32.4 L MCV 84.7 MCH 28.6 MCHC 33.7 RDW 13.8 Plt Count 235 Neut % (Auto) 68.8 Lymph % (Auto) 21.5 L [place] % (Auto) 8.7 Eos % (Auto) 0.7 L Baso % (Auto) 0.3 Neut # (Auto) 7000 Lymph # (Auto) 2200 [place] # (Auto) 900 Eos # (Auto) 100 Baso # (Auto) 0 Total Counted Seg Neutrophils % Band Neutrophils % Lymphocytes % (Manual) Atypical Lymphs % Monocytes % (Manual) Eosinophils % (Manual) Basophils % (Manual) Metamyelocytes % Myelocytes % Promyelocytes % Blast Cells % Neutrophils # (Manual) Nucleated RBCs Differential Comment Hypersegmented Neuts Reactive Lymphocytes Plasma Cells Smudge Cells Other Cell Type Toxic Granulation Toxic Vacuolation Dohle Bodies Moira Rods WBC Morphology Comment Platelet Estimate Clumped Platelets Plt Morphology Comment RBC Morphology Dimorphic RBCs Polychromasia Hypochromasia Poikilocytosis Basophilic Stippling Anisocytosis Microcytosis Macrocytosis Spherocytes Pappenheimer Bodies Sickle Cells Target Cells Tear Drop Cells Ovalocytes Stomatocytes Helmet Cells Brad[employer] Bodies [place] Rings Geri Cells Acanthocytes (Spur) Rouleaux Schistocytes Sodium 133 L Potassium 3.7 Chloride 101 Carbon Dioxide 25 BUN 10 Creatinine 0.75 Estimated GFR > 60.0 BUN/Creatinine Ratio 13.3 Glucose 92 Calcium 8.3 L Total Bilirubin AST ALT Alkaline Phosphatase Total Protein Albumin Globulin Albumin/Globulin Ratio SARS-CoV-2 (PCR) Negative 08/14/21 08/14/21 05:15 05:15 WBC 7.7 RBC 3.43 L Hgb 9.9 L Hct 29.4 L MCV 85.7 MCH 28.8 MCHC 33.6 RDW 13.9 Plt Count 205 Neut % (Auto) 67.2 Lymph % (Auto) 21.9 L [place] % (Auto) 9.5 Eos % (Auto) 1.0 L Baso % (Auto) 0.4 Neut # (Auto) 5200 Lymph # (Auto) 1700 [place] # (Auto) 700 Eos # (Auto) 100 Baso # (Auto) 0 Total Counted Cancelled Seg Neutrophils % Cancelled Band Neutrophils % Cancelled Lymphocytes % (Manual) Cancelled Atypical Lymphs % Cancelled Monocytes % (Manual) Cancelled Eosinophils % (Manual) Cancelled Basophils % (Manual) Cancelled Metamyelocytes % Cancelled Myelocytes % Cancelled Promyelocytes % Cancelled Blast Cells % Cancelled Neutrophils # (Manual) Cancelled Nucleated RBCs Cancelled Differential Comment Cancelled Hypersegmented Neuts Cancelled Reactive Lymphocytes Cancelled Plasma Cells Cancelled Smudge Cells Cancelled Other Cell Type Cancelled Toxic Granulation Cancelled Toxic Vacuolation Cancelled Dohle Bodies Cancelled [place]ira Rods Cancelled WBC Morphology Comment Cancelled Platelet Estimate Cancelled Clumped Platelets Cancelled Plt Morphology Comment Cancelled RBC Morphology Cancelled Dimorphic RBCs Cancelled Polychromasia Cancelled Hypochromasia Cancelled Poikilocytosis Cancelled Basophilic Stippling Cancelled Anisocytosis Cancelled Microcytosis Cancelled Macrocytosis Cancelled Spherocytes Cancelled Pappenheimer Bodies Cancelled Sickle Cells Cancelled Target Cells Cancelled Tear Drop Cells Cancelled Ovalocytes Cancelled Stomatocytes Cancelled Helmet Cells Cancelled [place] Bodies Cancelled [place] Rings Cancelled [place] Cells Cancelled Acanthocytes (Spur) Cancelled Rouleaux Cancelled Schistocytes Cancelled Sodium 137 Potassium 3.4 Chloride 103 Carbon Dioxide 27 BUN 8 L Creatinine 0.80 Estimated GFR > 60.0 BUN/Creatinine Ratio 10.0 Glucose 102 H Calcium 7.4 L Total Bilirubin 0.4 AST 31 ALT 17 Alkaline Phosphatase 68 Total Protein 6.4 Albumin 2.8 L Globulin 3.6 Albumin/Globulin Ratio 0.8 L SARS-CoV-2 (PCR) PFSH Medical History Heroin dependence Homeless Surgical History Tricuspid valve replaced Social History household members: friend(s) Smoking Status: Current every day smoker alcohol intake: current substance use type: heroin Assessment & Plan Assessment & Plan narrative: PROBLEM LIST RT BUTTOCK ABSCESS.? PRESENT ON ARRIVAL; LIKELY SECONDARY TO IV DRUG USE.? SURGERY TO EVALUATE POSSIBLE RIGHT ANTERIOR THIGH ABSCESS WELL.? PRESENT ON ARRIVAL? SURGERY TO EVALUATE ILLICIT DRUG USE.? EXTENSIVE COUNSELING GIVEN TOBACCO ABUSE.? EXTENSIVE COUNSELING GIVEN PLAN 08/14 AWAITING POSSIBLE I&D WITH SURGICAL TEAM TODAY SURGERY TEAM ASSISTANCE GREATLY APPRECIATED LABS REMAINS STABLE NO ELEVATED WBC NOTED ON LABS ONCE AGAIN THIS MORNING VITAL SIGNS ARE FAIRLY STABLE.? NO FEVER REPORTED OVERNIGHT CONTINUE TO FOLLOW DAILY LABS STARTED ON IV FLUID TO MAINTAIN PROPER FLUID BALANCE SINCE PATIENT IS NPO MONITOR CLOSELY POSTOPERATIVELY FOR ANY SIGN OF COMPLICATIONS CONTINUE CURRENT ANTIBIOTICS.? PATIENT IS ON VANCOMYCIN AND ZOSYN FOLLOW CULTURES ADDITIONAL MANAGEMENT PER CLINICAL COURSE 08/13 PATIENT WILL BE STARTED ON ANTIBIOTICS WILL START ON VANCOMYCIN WELL CEFEPIME AND FLAGYL. REFERRED TO THE SURGICAL TEAM? POSSIBLE I&D IN THE MORNING PER SURGICAL TEAM RECOMMENDATIONS CONSIDER CLINDAMYCIN WELL TO COUNTERACT STREPTOCOCCUS TOXIN IF INDICATED CLINICALLY FOLLOW CULTURES WHICH LIKELY WILL BE TAKEN DURING I&D? IN THE MORNING FOLLOW LABS DAILY GLASSES BUT HAS TOLERATED WATCH FOR SIGNS OF WITHDRAWAL FROM ILLICIT DRUGS WILL ADD ATIVAN WELL ORDERED NEEDED MEDICATION TO HELP WITH WITHDRAWAL SYMPTOMS MONITOR CLOSELY FOR ANY SIGN OF COMPLICATION POSTOPERATIVELY 5W'S PATIENT COUNSELING WILL BE GIVEN IN REGARD TO LIFESTYLE CHANGES INDICATED ADDITIONAL MANAGEMENT PER CLINICAL COURSE PROGNOSIS IS GUARDED DURATION OF STAY.? POSSIBLE 7 DAYS Time Spent With Patient Critical Care time: I spent a total of [] minutes of critical care time on this patient's care today; this time is exclusive of procedural time. Quality VTE Deep Vein Thrombosis/Pulmonary Embolism Present on Admission: No
[2021-08-14] MEDS: POTASSIUM CHLORIDE IN WATER 10 MEQ/100 ML PIGGYBACK 100 MEQ IV ×2 (09:14→11:39)
[2021-08-14] MEDS: SODIUM CHLORIDE 0.9% 500 ML 1000 ML IV (09:16)
--- NOTE | 2021-08-14 09:28 | CM.DANOTE ---
Addendum entered by Lyric Brooke R.N. 08/14/21 14:45: Attempted to meet with patient again, but is currently sleeping. Placed name of this demand planner on white board of his room. Was going to get more history, living situation, as well as recovery options. Original Note: DCP: Case received, EMR reviewed and met with patient. Patient has been sleeping, unable to converse with him as of yet. Completed DCP assessment based upon information currently available. Patient is a 31 year old male who admitted yesterday afternoon to the care of the hospitalist team. PCP: None Listed Payer: confirmed: [employer]/Medicaid. Patient came to the hospital via private vehicle secondary to a abscess to his buttock area. Patient has history of drug abuse, according to notes, injected himself with heroin. Ptient has history of methamphetamine and heroin use. According to notes, patient lives with friends, although it is indicated that he is homeless. He has a mother named Miriam in the area. Patient may require I&D and some IV antibiotics. He just had PICC line placed. P: DCP will attempt to meet with patient later. According to notes, patient has been trying to quit drugs. He may benefit with some resources, such as [facility]. According to recent notes, patient has been here before for the same issues. He will discharge when he is able to go on oral antibiotics, he will not be able to DC with IV ABO. Lyric Brooke RN/Slitter Creaser Slotter Helper Discharge Planning/Care Management Discharge Assessment Start: 08/14/21 09:24 Freq: Status: Active Protocol: Document 08/14/21 09:24 (Rec: 08/14/21 09:28 [id number]) Discharge Planning Assessment Assigned Dairy Associate Lyric Brooke RN/Slitter Creaser Slotter Helper Advance Directives? No Advance Directives on File No History Provided By Patient,Medical Record Prior Living Arrangements Homeless Household Members friend(s) Type of transporation used prior to Drives own vehicle admit Independent with ADL's Yes Is patient alert and oriented? Yes Caregiver for Another No Comment Unless cannot d/c on orals and needs IV-Abx, then barriers to d/c due to drug abuse Discharge Plan Home Transportation Arrangement mother or medicaid transport Referrals Initiated None needed Review Status In Process Next Review Type Continued Stay Review
--- NOTE | 2021-08-14 09:37 | PC.NURSE ---
Addendum entered by Natalee Sánchez R.N. 08/14/21 11:45: back from OR pt is sleepy vss denies pain. Original Note: notified of bp.orders rc'd bolus started-to OR @ 0970
--- NOTE | 2021-08-14 10:00 | P.CONS_ITS ---
History of Present Illness Consult details Date Patient Seen: 08/14/21 Time Patient Seen: 10:00 Chief complaint: Right gluteal and right anterior thigh abscess Reason for consult: Right gluteal and right anterior thigh abscess Narrative: The patient is a 31-year-old man who uses injection drugs and presented to the ER with a large, painful right gluteal abscess and a smaller right anterior thigh abscess. He has had prior procedures to drain subcutaneous abscesses. Meds Home Medications and Allergies Home Medications Medication Instructions Recorded Confirmed Type No Known Home Medications 08/13/21 08/13/21 History Allergies Allergy/AdvReac Type Severity Reaction Status Date / Time Sulfa (Sulfonamide Allergy Intermediate Verified 08/13/21 14:09 Antibiotics) [SULFA (SULFONAMIDE ANTIBIOTICS)] Exam Vital Signs (past 8 hours): - 08/14/21 03:00 08/14/21 04:00 08/14/21 04:07 Temperature 101.1 F H Pulse Rate Respiratory Rate 18 Blood Pressure Pulse Oximetry 93 08/14/21 04:12 08/14/21 08:32 Temperature 101.1 F H 98.3 F Pulse Rate 84 72 Respiratory Rate 16 14 Blood Pressure 102/40 L 83/36 L Pulse Oximetry 93 99 Oxygen Delivery Method Room Air Oxygen Flow Rate 0 Narrative Exam Narrative: There is a tender, inflamed right gluteal abscess about 10 cm in diameter without drainage There is a 3 x 4 cm right anterior thigh abscess without drainage Objective Labs Result Diagrams: 08/14/21 05:15 08/14/21 05:15 Labs: Laboratory Results - last 24 hr 08/13/21 08/13/21 08/13/21 14:51 19:16 19:16 WBC 10.2 RBC 3.83 L Hgb 10.9 L Hct 32.4 L MCV 84.7 MCH 28.6 MCHC 33.7 RDW 13.8 Plt Count 235 Neut % (Auto) 68.8 Lymph % (Auto) 21.5 L [place] % (Auto) 8.7 Eos % (Auto) 0.7 L Baso % (Auto) 0.3 Neut # (Auto) 7000 Lymph # (Auto) 2200 [place] # (Auto) 900 Eos # (Auto) 100 Baso # (Auto) 0 Total Counted Seg Neutrophils % Band Neutrophils % Lymphocytes % (Manual) Atypical Lymphs % Monocytes % (Manual) Eosinophils % (Manual) Basophils % (Manual) Metamyelocytes % Myelocytes % Promyelocytes % Blast Cells % Neutrophils # (Manual) Nucleated RBCs Differential Comment Hypersegmented Neuts Reactive Lymphocytes Plasma Cells Smudge Cells Other Cell Type Toxic Granulation Toxic Vacuolation Dohle Bodies Moira Rods WBC Morphology Comment Platelet Estimate Clumped Platelets Plt Morphology Comment RBC Morphology Dimorphic RBCs Polychromasia Hypochromasia Poikilocytosis Basophilic Stippling Anisocytosis Microcytosis Macrocytosis Spherocytes Pappenheimer Bodies Sickle Cells Target Cells Tear Drop Cells Ovalocytes Stomatocytes Helmet Cells Bradshaw-Learned Bodies [place] Rings [place] Cells Acanthocytes (Spur) Rouleaux Schistocytes Sodium 133 L Potassium 3.7 Chloride 101 Carbon Dioxide 25 BUN 10 Creatinine 0.75 Estimated GFR > 60.0 BUN/Creatinine Ratio 13.3 Glucose 92 Calcium 8.3 L Total Bilirubin AST ALT Alkaline Phosphatase Total Protein Albumin Globulin Albumin/Globulin Ratio SARS-CoV-2 (PCR) Negative 08/14/21 08/14/21 05:15 05:15 WBC 7.7 RBC 3.43 L Hgb 9.9 L Hct 29.4 L MCV 85.7 MCH 28.8 MCHC 33.6 RDW 13.9 Plt Count 205 Neut % (Auto) 67.2 Lymph % (Auto) 21.9 L [place] % (Auto) 9.5 Eos % (Auto) 1.0 L Baso % (Auto) 0.4 Neut # (Auto) 5200 Lymph # (Auto) 1700 [place] # (Auto) 700 Eos # (Auto) 100 Baso # (Auto) 0 Total Counted Cancelled Seg Neutrophils % Cancelled Band Neutrophils % Cancelled Lymphocytes % (Manual) Cancelled Atypical Lymphs % Cancelled Monocytes % (Manual) Cancelled Eosinophils % (Manual) Cancelled Basophils % (Manual) Cancelled Metamyelocytes % Cancelled Myelocytes % Cancelled Promyelocytes % Cancelled Blast Cells % Cancelled Neutrophils # (Manual) Cancelled Nucleated RBCs Cancelled Differential Comment Cancelled Hypersegmented Neuts Cancelled Reactive Lymphocytes Cancelled Plasma Cells Cancelled Smudge Cells Cancelled Other Cell Type Cancelled Toxic Granulation Cancelled Toxic Vacuolation Cancelled Dohle Bodies Cancelled [place]ira Rods Cancelled WBC Morphology Comment Cancelled Platelet Estimate Cancelled Clumped Platelets Cancelled Plt Morphology Comment Cancelled RBC Morphology Cancelled Dimorphic RBCs Cancelled Polychromasia Cancelled Hypochromasia Cancelled Poikilocytosis Cancelled Basophilic Stippling Cancelled Anisocytosis Cancelled Microcytosis Cancelled Macrocytosis Cancelled Spherocytes Cancelled Pappenheimer Bodies Cancelled Sickle Cells Cancelled Target Cells Cancelled Tear Drop Cells Cancelled Ovalocytes Cancelled Stomatocytes Cancelled Helmet Cells Cancelled Bradshaw-Learned Bodies Cancelled [place] Rings Cancelled Geri Cells Cancelled Acanthocytes (Spur) Cancelled Rouleaux Cancelled Schistocytes Cancelled Sodium 137 Potassium 3.4 Chloride 103 Carbon Dioxide 27 BUN 8 L Creatinine 0.80 Estimated GFR > 60.0 BUN/Creatinine Ratio 10.0 Glucose 102 H Calcium 7.4 L Total Bilirubin 0.4 AST 31 ALT 17 Alkaline Phosphatase 68 Total Protein 6.4 Albumin 2.8 L Globulin 3.6 Albumin/Globulin Ratio 0.8 L SARS-CoV-2 (PCR) [facility] Medical History Heroin dependence Homeless Surgical History Tricuspid valve replaced Social History household members: friend(s) Tobacco & Substance Use Smoking Status: Current every day smoker alcohol intake: current substance use type: heroin Assessment & Plan Assessment and plan (1) Abscess, gluteal, right: Status: Acute Plan Incision and drainage of right gluteal and right anterior thigh abscesses under anesthesia. Most likely these wounds will need to be packed for several days. We will inject local anesthesia. He has been started on antibiotics by the hospitalist service. Will culture the pus so that the antibiotics can be dialed in. Time Spent With Patient Critical Care time: I spent a total of [] minutes of critical care time on this patient's care today; this time is exclusive of procedural time.
[2021-08-14] MEDS: LACTATED RINGERS 1,000 ML 100 ML IV (10:04)
--- NOTE | 2021-08-14 10:05 | PM.PREOP ---
Pre-operative Note COVID-19 COVID-19 status: Negative Result date/Date tested (Pos, Neg/Pending): 08/13/21 Interval Note History & Physical reviewed/Exam performed by Physician: Yes Changes to H&P: No ASA Class (for procedural sedation): III
--- NOTE | 2021-08-14 10:54 | P.OP_ITS ---
Operative Date/Time/Diagnoses Date of procedure: 08/14/21 Time of procedure: 10:54 Pre-op diagnosis: Right gluteal and right thigh abscesses Post-op diagnosis: same Procedure & Clinicians Procedure: Incision and drainage of right gluteal and right anterior thigh abscesses Same procedure as scheduled: Yes Surgeon: Elian Izquierdo Click Yes if Unassisted: Yes Anesthesia Type: General Operative Notes Findings: Purulent, necrotic debris within abscess cavities at both locations Estimated Blood Loss (mL): 25 Procedure in detail: The patient was brought to the operating room, placed on the table in the supine position and general anesthesia was induced via LMA. The patient was on scheduled antibiotics. Once he was under anesthesia he was turned in the right lateral decubitus position with the left side up. The skin of the right gluteal region and right anterior thigh were prepped and draped in the usual fashion. A time-out was performed. We started at the right gluteal abscess. A 5 cm x 5 cm cruciate incision was created over the area of greatest fluctuance and thick, purulent, necrotic debris was aspirated. Cultures were taken from the deepest aspect of the cavity. The [employer] suction tip was used to break up any loculations in the cavity. The cavity was irrigated with about 200 mL of saline. Few small bleeders were cauterized at the skin edge. Marcaine was injected into the dermis and subcutaneous tissue around the incision. The cavity was then packed with dry Kerlix gauze and multiple for 1st placed over the top and held in place with tape. We then moved onto the right anterior thigh which was a smaller abscess. We made a smaller cruciate incision roughly 3 cm x 3 cm. The abscess contents were similar in nature. Two more cultures were taken from here. We then packed this cavity with more Kerlix gauze and 4x4s were placed over the top and held in place with tape. The patient was awakened and brought to recovery room. Complications: none Post-operative Condition: stable Disposition: PACU
--- NOTE | 2021-08-14 10:55 | SUR.OPER ---
Lateral on a woodard bag, head on pillow, gel axillary roll in place, bottom leg bent with gel pad under knee to foot, upper leg straight and supported with pillows. Upper arm supported by pillows and secured over bottom arm to padded arm board. Safety belt at hip, tape over blanket lower legs.
--- NOTE | 2021-08-14 10:59 | SUR.OPER ---
NUMEROUS > THAN 20 PINPOINT SCABS ON TORSO LEGS AND ARMS. ABSCESS ON RIGHT GLUTEUS AND RIGHT ANTERIOR THIGH.
[2021-08-14] MEDS: BUPIVACAINE 0.5% (PF) 30 ML, EPINEPHrine 0.15 MG INJ (11:02)
--- NOTE | 2021-08-14 11:11 | SUR.PHASEI ---
pt arrived to PACU with airway self maintained, 02 added, then weaned off. Denied pain, tolerated ice chips. Report called to anusha. Pt transported up to room 204.
[2021-08-14] MEDS: SODIUM CHLORIDE 0.9% 1,000 ML 125 ML IV (11:38)
--- NOTE | 2021-08-14 11:45 | SUR.PHASEI ---
1115 pt transported back to room 204 and left with Natalee and left in stable condition, bed low and locked.
--- NOTE | 2021-08-14 11:54 | SUR.PHASEI ---
Message left with Khushboo MAURICIO and Elvin VENEGAS made aware.
[2021-08-14] MEDS: LACTOBACILLUS ACIDOPHILUS TABLET 1 EACH PO (14:10)
[2021-08-14] MEDS: methocarbamoL 500 MG TABLET 750 MG PO (14:18)
[2021-08-14] MEDS: GABAPENTIN 300 MG CAPSULE PO (14:19)
[2021-08-14] MEDS: TRAMADOL 50 MG TABLET PO (14:19)
[2021-08-14 15:52] LABS: Acinetobacter baumannii Not Detected (Not Detect); E. coli Not Detected (Not Detect); Enterobacter cloacae complex Not Detected (Not Detect); Enterobacteriaceae species Not Detected (Not Detect); Enterococcus species Not Detected (Not Detect); Haemophilus influenzae Not Detected (Not Detect); KPC (carbapenem-resist gene) Not Detected (Not Detect); Listeria monocytogenes Not Detected (Not Detect); Methicillin-resistant gene Detected (Not Detect); Proteus species Not Detected (Not Detect); Serratia marcescens Not Detected (Not Detect); Staphylococcus species Detected (Not Detect); Streptococcus agalactiae (Gr B Not Detected (Not Detect); Streptococcus pneumonia Not Detected (Not Detect); Streptococcus pyogenes (Gr A) Not Detected (Not Detect); Streptococcus species Not Detected (Not Detect); Vancomycin-rest genes A/B Not Detected (Not Detect)
[2021-08-14 15:53] LABS: Candida albicans Not Detected (Not Detect); Candida glabrata Not Detected (Not Detect); Candida krusei Not Detected (Not Detect); Candida parapsilosis Not Detected (Not Detect); Candida tropicalis Not Detected (Not Detect); Neisseria meningitidis Not Detected (Not Detect); Pseudomonas aeruginosa Not Detected (Not Detect)
--- NOTE | 2021-08-14 21:36 | PC.NURSE ---
Pt refusing to take all his PO meds, unable to take a blood pressure, pt sating at 100% on RA. Pt asking to have his jacket and his snack. this nurse gave patient his back of snack. dressing to right buttock saturated with blood, pt refusing to have it change. Nurse only able to do a partial assessment due to pt being agitated/angry
[2021-08-14 22:34] LABS: Vancomycin Trough 13.4 ug/mL (10-20)
--- NOTE | 2021-08-14 23:40 | PC.NURSE ---
Patient asked to get into coat. TORCH SOLDERER in room to assist him. Patient snuck something out of coat and wouldn't let TORCH SOLDERER or this RN see what it was. Security stevenson called. After 15-20min patient still refusing to let hospital staff see what was in his hands. Was able to talk patient out of bed to get new linen d/t food all over bed. During the time of patient getting out of bed he accidentally dropped 2 small blue bags with hard black substance in them. This RN took bags and waisted them with Gisselle RN into the cactus. Patient upset that we stole his stuff. Spoke to patient about po meds that we can given him that could help with pain but is refusing any po HS medications. Patient states he only wants the IV stuff. This RN explained to him that the next dose is in 4hrs and the po meds could help him feel better but patient still refused.
[2021-08-15] VITALS (10 sets, daily range): BP systolic 82–128; BP diastolic 43–78; PULSE 63–82; RESP 16–20; TEMP 36.1–37.1; O2SAT 95–100
--- NOTE | 2021-08-15 00:46 | PC.NURSE ---
Pt started to scream and curse at the top of his lungs, flinging himself all over his bed this QUALITY CONTROL ENGINEER walked in asking him how I can help and PT kept screaming stating we ruined his plans because we took his stuff away. Pt is refusing oral meds from RN. Pt is very agitated. Pt is stating he is going to just leave because hes over us.
[2021-08-15] MEDS: HYDROMORPHONE 1 MG INJ IV ×5 (01:21→17:24)
[2021-08-15] MEDS: diphenhydrAMINE 50 MG/ML VIAL 25 MG IV ×2 (01:21→05:34)
--- NOTE | 2021-08-15 02:04 | PC.NURSE ---
pt has been agitated with care, pt refusing all oral po pain meds. pt getting dilaudid 1 mg ivp every 4 hours as well as benadryl iv and lorazepam 1 mg iv. will continue to monitor.
[2021-08-15 02:08] LABS: Vancomycin Peak 35.4 ug/mL (20-40)
[2021-08-15] MEDS: PIPERACILLIN/TAZO 3.375 GM in SODIUM CHLORIDE 0.9% 100 ML 25 ML IV ×3 (02:30→18:31)
[2021-08-15] MEDS: LORazepam 2 MG/ML INJ 1 MG IV ×3 (02:30→15:31)
[2021-08-15] MEDS: SODIUM CHLORIDE 0.9% 1,000 ML 125 ML IV ×3 (02:33→22:06)
[2021-08-15] MEDS: VANCOMYCIN TROUGH 1 REQUEST MISC (05:35)
[2021-08-15] MEDS: VANCOMYCIN PEAK 1 REQUEST MISC (05:35)
[2021-08-15] MEDS: VANCOMYCIN 1,500 MG/300 ML PIGGYBACK 150 MG IV (05:36)
[2021-08-15 06:01] LABS: Add Manual Diff / Slide Review NO; Basophils Absolute Auto 0 /uL (0-100); Basophils Percent Auto 0.4 % (0-2); Eosinophils Absolute Auto 300 /uL (0-450); Eosinophils Percent Auto 5.3 % (2-4); Hematocrit 31.3 % (41-53); Hemoglobin 10.5 g/dL (13.5-17.5); Lymphocytes Absolute Auto 2200 /uL (1100-4500); Lymphocytes Percent Auto 34.7 % (25-40); Mean Corpuscular HGB Conc 33.5 % (30-36); Mean Corpuscular Hemoglobin 28.5 PG (26-34); Mean Corpuscular Volume 85.1 fL (80-100); Monocytes Absolute Auto 400 /uL (0-900); Monocytes Percent Auto 6.8 % (3-14); Neutrophils Absolute Auto 3400 /uL (1500-7000); Neutrophils Percent Auto 52.8 % (50-75); Platelet Count 238 X10^3/uL (150-400); Red Blood Cell Count 3.68 X10^6/uL (4.5-5.9); Red Cell Distribution Width 13.9 % (11.6-14.8); White Blood Cell Count 6.3 X10^3/uL (4.5-11.0)
[2021-08-15 06:08] LABS: Alanine Aminotransferase 18 IU/L (<50); Albumin Globulin Ratio 0.8 (1.0-2.8); Alkaline Phosphatase 82 U/L (38-126); Aspartate Aminotransferase 30 IU/L (17-59); BUN Creatinine Ratio 10.4 (6-22); Bilirubin Total 0.2 mg/dL (0.2-1.3); Blood Urea Nitrogen 7 mg/dL (9-20); Calcium 7.8 mg/dL (8.4-10.2); Carbon Dioxide 28 mmol/L (22-32); Chloride 104 mmol/L (98-107); Estimated Glomerular Filt Rate > 60.0 mL/min (>60); Globulin 3.7 g/dL (1.7-4.1); Glucose 124 mg/dL (70-100); HEMOLYSIS < 15 (0-50); Potassium 3.7 mmol/L (3.4-5.1); Sodium 135 mmol/L (137-145); Total Protein 6.7 g/dL (6.3-8.2)
[2021-08-15] MEDS: ONDANSETRON 4 MG/2 ML INJ IV (09:42)
--- NOTE | 2021-08-15 13:39 | P.PN_ITS ---
Subjective Subjective Date Patient Seen: 08/15/21 Interval history: 31-YEAR-OLD MALE WITH A HISTORY OF IV DRUG USE ADMITTED TO THE HOSPITAL WITH CELLULITIS/ABSCESS TO RIGHT BUTTOCK TODAY REPORTED FEELING TIRED HE DENIED ANY CONFUSION NO SYNCOPAL OR PRESYNCOPAL SYMPTOMS ALSO, DENIES ANY FEVER OR CHILLS OVERNIGHT NO NAUSEA VOMITING NO DIARRHEA DENIES ANY SHORTNESS OF BREATH.? NO CHEST PAIN.? NO CHEST PRESSURE NURSING STAFF REPORTED PATIENT WAS FOUND USING ILLICIT DRUG THAT HE BROUGHT TO THE HOSPITAL Exam Vital Signs (past 8 hours): - 08/15/21 08:40 08/15/21 10:00 08/15/21 10:20 Temperature 98.5 F 98.2 F Pulse Rate 68 72 63 Respiratory Rate 16 16 20 Blood Pressure 82/43 L 90/47 L Pulse Oximetry 100 100 98 08/15/21 12:00 Temperature 96.9 F L Pulse Rate 82 Respiratory Rate 16 Blood Pressure 128/78 Pulse Oximetry 98 Oxygen Delivery Method Room Air Oxygen Flow Rate 0 Narrative Exam Narrative: NO ACUTE DISTRESS.? PATIENT IS ALERT ORIENTED X3.? APPEARS MUCH OLDER THAN STATED AGE.? POOR DENTITION VITAL SIGNS STABLE HEAD ATRAUMATIC NORMOCEPHALIC NECK : SUPPLE WITHOUT ADENOPATHY NO CAROTID BRUITS EYE:? EOMI, PERRLA, NORMAL CONJUNCTIVA; NO JAUNDICE CHEST:? REGULAR RATE.? ? NO RUBS.? PMI IS NON DISPLACED.? NO MURMURS; NORMAL S1- S2 PULMONARY:? DECREASED BS OVER THE BASES.? MILD BIBASILAR CRACKLES NOTED; NO INCREASED DULLNESS TO PERCUSSION ABDOMEN:? SOFT.? NONTENDER.? NONDISTENDED.? BOWEL SOUNDS ARE PRESENT IN ALL 4 QUADRANTS.? NO MASS. EXTREMITIES: NO EDEMA..? NO CYANOSIS CLUBBING NOTED. NEURO:? CRANIAL NERVES 2-12 GROSSLY INTACT. NO FOCAL NEUROLOGICAL DEFICIT NOTED. MSK:? NORMAL RANGE OF MOTION FOR AGE.? NO JOINT EFFUSION. SKIN:? SURGICAL INCISION NOTED TO THE RIGHT BUTTOCK AND RIGHT MEDIAL THIGH. DRESSING IN PLACE. SEROSANGUINEOUS DRAINAGE APPRECIATED. NO PURULENT ODOR :? NORMAL EXTERNAL GENITALIA. PSYCH :? APPROPRIATE MOOD AND AFFECT.? ALERT AWAKE ORIENTED X3 Objective Labs Result Diagrams: 08/15/21 05:46 08/15/21 05:46 Labs: Laboratory Results - last 24 hr 08/13/21 08/14/2121 19:16 21:08 22:02 WBC RBC Hgb Hct MCV MCH MCHC RDW Plt Count Neut % (Auto) Lymph % (Auto) [place] % (Auto) Eos % (Auto) Baso % (Auto) Neut # (Auto) Lymph # (Auto) [place] # (Auto) Eos # (Auto) Baso # (Auto) Sodium Potassium Chloride Carbon Dioxide BUN Creatinine Estimated GFR BUN/Creatinine Ratio Glucose Calcium Total Bilirubin AST ALT Alkaline Phosphatase Total Protein Albumin Globulin Albumin/Globulin Ratio Vancomycin Peak Vancomycin Trough Cancelled 13.4 A. baumannii (PCR) Not detected Sasha albicans (PCR) Not detected C. glabrata (PCR) Not detected C. krusei (PCR) Not detected C. parapsilosis (PCR) Not detected C. tropicalis (PCR) Not detected Enterobacteriac sp PCR Not detected E. cloacae complex PCR Not detected Enterococcus sp PCR Not detected E. coli (PCR) Not detected H. influenzae (PCR) Not detected Klebsiella oxytoca PCR Not detected Klebsiella pneumoniae Not detected List. monocytogenes PCR Not detected N. meningitidis (PCR) Not detected Proteus species (PCR) Not detected Serratia marcescens PCR Not detected Staphylococcus sp PCR Detected H Staph aureus (PCR) Not detected mecA-Methicil Res Gene Detected H Streptococcus sp PCR Not detected Group A Strep (PCR) Not detected Strep agalactiae (PCR) Not detected Strep pneumoniae (PCR) Not detected P. aeruginosa (PCR) Not detected Hilario/B-Vanco Res Genes Not detected KPC-Carbap Res Gene PCR Not detected 08/15/21 08/15/21 08/15/21 01:30 05:46 05:46 WBC 6.3 RBC 3.68 L Hgb 10.5 L Hct 31.3 L MCV 85.1 MCH 28.5 MCHC 33.5 RDW 13.9 Plt Count 238 Neut % (Auto) 52.8 Lymph % (Auto) 34.7 [place] % (Auto) 6.8 Eos % (Auto) 5.3 H Baso % (Auto) 0.4 Neut # (Auto) 3400 Lymph # (Auto) 2200 [place] # (Auto) 400 Eos # (Auto) 300 Baso # (Auto) 0 Sodium 135 L Potassium 3.7 Chloride 104 Carbon Dioxide 28 BUN 7 L Creatinine 0.67 Estimated GFR > 60.0 BUN/Creatinine Ratio 10.4 Glucose 124 H Calcium 7.8 L Total Bilirubin 0.2 AST 30 ALT 18 Alkaline Phosphatase 82 Total Protein 6.7 Albumin 3.0 L Globulin 3.7 Albumin/Globulin Ratio 0.8 L Vancomycin Peak 35.4 Vancomycin Trough A. baumannii (PCR) Sasha albicans (PCR) C. glabrata (PCR) C. krusei (PCR) C. parapsilosis (PCR) C. tropicalis (PCR) Enterobacteriac sp PCR E. cloacae complex PCR Enterococcus sp PCR E. coli (PCR) H. influenzae (PCR) Klebsiella oxytoca PCR Klebsiella pneumoniae List. monocytogenes PCR N. meningitidis (PCR) Proteus species (PCR) Serratia marcescens PCR Staphylococcus sp PCR Staph aureus (PCR) mecA-Methicil Res Gene Streptococcus sp PCR Group A Strep (PCR) Strep agalactiae (PCR) Strep pneumoniae (PCR) P. aeruginosa (PCR) Hilario/B-Vanco Res Genes KPC-Carbap Res Gene PCR PFSH Medical History Heroin dependence Homeless Surgical History Tricuspid valve replaced Social History household members: friend(s) Smoking Status: Current every day smoker alcohol intake: current substance use type: heroin Assessment & Plan Assessment & Plan narrative: PROBLEM LIST RT BUTTOCK ABSCESS.? PRESENT ON ARRIVAL; DUE TO STAPHYLOCOCCUS AUREUS. STATUS POST I&D DAY 1 RIGHT ANTERIOR THIGH ABSCESS WELL.? PRESENT ON ARRIVAL?. STATUS POST I AND D DAY 1 ILLICIT DRUG USE.? EXTENSIVE COUNSELING GIVEN TOBACCO ABUSE.? EXTENSIVE COUNSELING GIVEN PLAN ASSISTANCE FROM THE SURGICAL TEAM IS GREATLY APPRECIATED CONTINUE WITH CURRENT ANTIBIOTICS PATIENT IS ON VANCOMYCIN AND ZOSYN CULTURE RESULTS NOTED WITH STAPHYLOCOCCI US WILL CONSIDER DEESCALATING ANTIBIOTICS TO VANCOMYCIN ONLY WILL CONSIDER ZYVOX WELL REGIMENT DURING DISCHARGE DOXYCYCLINE AND CLINDAMYCIN WILL ALSO BE CONSIDERED PATIENT IS VERY NONCOMPLIANT DUE TO HISTORY OF ILLICIT DRUG USE, EVEN IF INDICATED, HE WILL NOT BE ABLE TO BE DISCHARGED ON IV ANTIBIOTICS CONTINUE TO MONITOR CLOSELY WHILE ON ANTIBIOTIC THERAPY FOR ANY SIGN OF COMPLICATION SUCH C DIFF COLITIS DAILY LAB TO FOLLOW PATIENT TO BE OUT OF BED WITH EACH MEAL NURSING STAFF TO MOBILIZE PATIENT'S MED TOLERATED ENCOURAGED PATIENT TO USE HIS INCENTIVE SPIROMETER DEVICE ORDERED ADDITIONAL MANAGEMENT PER CLINICAL COURSE PROGNOSIS IS GUARDED DISCHARGE WAS CLEARED BY THE SURGICAL TEAM Time Spent With Patient Critical Care time: I spent a total of [] minutes of critical care time on this patient's care today; this time is exclusive of procedural time. Quality VTE Deep Vein Thrombosis/Pulmonary Embolism Present on Admission: No
[2021-08-15] MEDS: HYDROCODONE/ACET 5/325 TABLET 1 TAB PO (13:43)
[2021-08-15] MEDS: methocarbamoL 500 MG TABLET 750 MG PO (13:43)
[2021-08-15] MEDS: VANCOMYCIN 1,250 MG/250 ML PIGGYBACK 250 MG IV (15:31)
--- NOTE | 2021-08-15 17:44 | PM.PN.1 ---
Subjective Subjective Date Patient Seen: 08/15/21 Time Patient Seen: 17:44 Interval history: Complains of right gluteal pain Exam Vital Signs (past 8 hours): - 08/15/21 10:00 08/15/21 10:20 08/15/21 12:00 Temperature 98.2 F 96.9 F L Pulse Rate 72 63 82 Respiratory Rate 16 20 16 Blood Pressure 90/47 L 128/78 Pulse Oximetry 100 98 98 08/15/21 13:38 08/15/21 16:39 Temperature 98.8 F Pulse Rate 82 69 Respiratory Rate 16 16 Blood Pressure 87/45 L Pulse Oximetry 98 97 Oxygen Delivery Method Room Air Oxygen Flow Rate 0 Narrative Exam Narrative: Significantly decreased erythema around right gluteal abscess Mild erythema around right anterior thigh abscess Objective Labs Result Diagrams: 08/15/21 05:46 08/15/21 05:46 Labs: Laboratory Results - last 24 hr 08/14/21 08/14/21 08/15/21 21:08 22:02 01:30 WBC RBC Hgb Hct MCV MCH MCHC RDW Plt Count Neut % (Auto) Lymph % (Auto) [place] % (Auto) Eos % (Auto) Baso % (Auto) Neut # (Auto) Lymph # (Auto) [place] # (Auto) Eos # (Auto) Baso # (Auto) Sodium Potassium Chloride Carbon Dioxide BUN Creatinine Estimated GFR BUN/Creatinine Ratio Glucose Calcium Total Bilirubin AST ALT Alkaline Phosphatase Total Protein Albumin Globulin Albumin/Globulin Ratio Vancomycin Peak 35.4 Vancomycin Trough Cancelled 13.4 08/15/21 08/15/21 05:46 05:46 WBC 6.3 RBC 3.68 L Hgb 10.5 L Hct 31.3 L MCV 85.1 MCH 28.5 MCHC 33.5 RDW 13.9 Plt Count 238 Neut % (Auto) 52.8 Lymph % (Auto) 34.7 [place] % (Auto) 6.8 Eos % (Auto) 5.3 H Baso % (Auto) 0.4 Neut # (Auto) 3400 Lymph # (Auto) 2200 [place] # (Auto) 400 Eos # (Auto) 300 Baso # (Auto) 0 Sodium 135 L Potassium 3.7 Chloride 104 Carbon Dioxide 28 BUN 7 L Creatinine 0.67 Estimated GFR > 60.0 BUN/Creatinine Ratio 10.4 Glucose 124 H Calcium 7.8 L Total Bilirubin 0.2 AST 30 ALT 18 Alkaline Phosphatase 82 Total Protein 6.7 Albumin 3.0 L Globulin 3.7 Albumin/Globulin Ratio 0.8 L Vancomycin Peak Vancomycin Trough PFSH Medical History Heroin dependence Homeless Surgical History Tricuspid valve replaced Social History household members: friend(s) Smoking Status: Current every day smoker alcohol intake: current substance use type: heroin Assessment & Plan Assessment and plan (1) Abscess, gluteal, right: Status: Acute Plan Packing removed from right gluteal abscess. He would like to wait to remove the right anterior thigh packing until he has had some more pain medication. He can be discharged home with gauze to cover the wounds. No need for further packing. Wounds will granulate in. Ok to shower and let water go into wounds. Time Spent With Patient Critical Care time: I spent a total of [] minutes of critical care time on this patient's care today; this time is exclusive of procedural time. Quality VTE Deep Vein Thrombosis/Pulmonary Embolism Present on Admission: No
--- NOTE | 2021-08-15 17:56 | PC.NURSE ---
Addendum entered by Abdi Hicks R.N. 08/15/21 19:00: Late entry: low blood pressure this AM (SBP 80's) noted. Dr. Alas notified, no new orders received. Original Note: Dr. Izquierdo came in and removed packing and dressing from right buttocks and right thigh. Per Dr. Izquierdo wound can be rinsed with saline and left unpacked and then covered with dressing. Wounds cleansed and then covered with nonadherent foam dressings. Dilaudid given as available prn for pain during dressing change. Patient declines shower. Patient sitting up in bed eating for. Call light withinr each.
[2021-08-16] VITALS (7 sets, daily range): BP systolic 101–111; BP diastolic 56–70; PULSE 73–82; RESP 16; TEMP 36.4–37.3; O2SAT 94–99
[2021-08-16] MEDS: VANCOMYCIN 1,250 MG/250 ML PIGGYBACK 250 MG IV ×2 (00:29→07:42)
[2021-08-16] MEDS: HYDROMORPHONE 1 MG INJ IV ×2 (00:58→10:45)
[2021-08-16 01:10] LABS: Hematocrit 33.3 % (41-53); Hemoglobin 11.2 g/dL (13.5-17.5); Mean Corpuscular HGB Conc 33.7 % (30-36); Mean Corpuscular Hemoglobin 28.8 PG (26-34); Mean Corpuscular Volume 85.3 fL (80-100); Platelet Count 311 X10^3/uL (150-400); Red Blood Cell Count 3.91 X10^6/uL (4.5-5.9); White Blood Cell Count 7.8 X10^3/uL (4.5-11.0)
[2021-08-16 01:11] LABS: Add Manual Diff / Slide Review YES
[2021-08-16 01:13] LABS: Alanine Aminotransferase 25 IU/L (<50); Albumin 3.6 g/dL (3.5-5.0); Albumin Globulin Ratio 0.9 (1.0-2.8); Alkaline Phosphatase 86 U/L (38-126); Aspartate Aminotransferase 38 IU/L (17-59); Bilirubin Total 0.4 mg/dL (0.2-1.3); Blood Urea Nitrogen 8 mg/dL (9-20); Calcium 8.6 mg/dL (8.4-10.2); Carbon Dioxide 32 mmol/L (22-32); Chloride 103 mmol/L (98-107); Estimated Glomerular Filt Rate > 60.0 mL/min (>60); Glucose 121 mg/dL (70-100); HEMOLYSIS 16 (0-50); Potassium 4.3 mmol/L (3.4-5.1); Sodium 138 mmol/L (137-145); Total Protein 7.6 g/dL (6.3-8.2)
[2021-08-16] MEDS: PIPERACILLIN/TAZO 3.375 GM in SODIUM CHLORIDE 0.9% 100 ML 25 ML IV ×2 (02:11→10:38)
[2021-08-16] MEDS: SODIUM CHLORIDE 0.9% 1,000 ML 125 ML IV (06:51)
[2021-08-16 07:05] LABS: Neutrophils Absolute Manual 3510 /uL (3000-5900); RBC Morphology Normal Morphology; Total Cells Counted 100
[2021-08-16] MEDS: GABAPENTIN 300 MG CAPSULE PO (08:40)
[2021-08-16] MEDS: HEPARIN 5,000 UNIT/ML VIAL 5000 UNIT SUBCUT (08:40)
[2021-08-16] MEDS: methocarbamoL 500 MG TABLET 750 MG PO (08:40)
[2021-08-16] MEDS: HYDROCODONE/ACET 5/325 TABLET 1 TAB PO (08:40)
[2021-08-16] MEDS: LORazepam 2 MG/ML INJ 1 MG IV ×2 (10:45→15:53)
--- NOTE | 2021-08-16 14:03 | P.DS_ITS ---
History of Present Illness History of Present Illness Chief complaint: Right gluteal and right anterior thigh abscess Narrative: THIS IS AN UNFORTUNATE 31-YEAR-OLD MALE WITH A PAST MEDICAL HISTORY SIGNIFICANT FOR ILLICIT DRUG ABUSE. PATIENT PRESENTS TO THE HOSPITAL WITH PAIN TO THE BUTTOCKS AREA. PATIENT STATED THAT FOR LAST FEW DAYS BEEN HAVING SOME INCREASED PAIN TO THE AREA WELL INCREASE SWELLING TO THE AREA. HE REPORTED THAT HE USED THIS SITE TO INJECT HEROIN WELL. DENIES ANY INSECT BITES HE COULD BE AWARE OF NO FEVER OR CHILLS. NO TRAUMA REPORTED. PATIENT IS BEING REFERRED TO THE SURGICAL TEAM FOR SUSPECT ABSCESS TO THE BUTTOCK AREA. LABS ARE FAIRLY STABLE. Discharge Providers Provider Date of admission: 08/13/21 14:49 Discharge Date: 08/16/21 Consults: 08/13/21 14:41 Consult After Hours PICC Line RN Stat Comment: 08/13/21 15:06 Consult to Discharge Planning Routine Comment: Discharge provider: Aleta Orozco, DO Summary Hospital Course Discharge Diagnosis: RT BUTTOCK ABSCESS.? PRESENT ON ARRIVAL; DUE TO MSSA.? STATUS POST I&D DAY2 RIGHT ANTERIOR THIGH ABSCESS WELL.? PRESENT ON ARRIVAL?.? WITH MSSA ON C ULTURE. STATUS POST I AND D DAY 2 ILLICIT DRUG USE.? EXTENSIVE COUNSELING GIVEN TOBACCO ABUSE.? EXTENSIVE COUNSELING GIVEN Hospital Course: THIS YEAR OLD MALE ADMITTED TO THE HOSPITAL WITH ABSCESS TO THE BUTTOCK AREA SECONDARY TO INFECTED ILLICIT DRUG INJECTION SITE WAS TREATED WITH IV ANTIBIOTICS. SHE WAS REFERRED TO THE SURGICAL TEAM AND TAKEN TO THE OR FOR AN I AND D. MSSA IS GROWING FROM THE CULTURE AT THIS TIME. DAYS NO PURULENT DRAINAGE NOTED AT THIS AT THIS TIME. MOSTLY SEROSANGUINEOUS DRAINAGE APPRECIATED ON THE DRESSING. VITAL SIGNS HAS BEEN FAIRLY STABLE. HE LL BE SWITCHED TO ORAL ANTIBIOTICS AND DISCHARGED TO HOME. PATIENT WILL NEED TO DO DAILY DRESSING INSTRUCTED PATIENT TO CLEAN WOUND WITH NORMAL SALINE, GENTLY DRY THEN PACKED THE WOUND WITH 4X4 OR 2X2 THEN SECURED WITH TAPE. PATIENT IS ALLOWED TO SHOWER. HOWEVER THE WILL NEED TO BE DRIED AND THOROUGHLY CLEANED AFTER THE SHOWER. HE SHOULD AVOID SWIMMING IN STANDING WATER. THE AREA SHOWS REMAIN CLEAN AND DRY AT ALL TIMES UNLESS DRESSING IS BEING CHANGED HE SHOULD AVOID ILLICIT DRUG USE . AVOID TOBACCO PRODUCTS AVOID ALCOHOL PRODUCTS ACTIVITIES WILL BE TOLERATED REGULAR DIET FOLLOW-UP PRIMARY CARE PHYSICIAN WITHIN 1 WEEK ALL THE LOCAL FREE CLINIC FOLLOW-UP WITH GENERAL SURGERY WITHIN 1 WEEK WELL Status at Discharge Cognitive/behavioral status at discharge: oriented Functional status at discharge: independent ambulation Overall status at discharge: patient is progressing back to baseline Time Spent with Patient Time spent: Greater than 30 minutes Exam Vital Signs (past 8 hours): - 08/16/21 07:27 08/16/21 08:32 08/16/21 11:41 Temperature 97.5 F L Pulse Rate 73 Respiratory Rate 16 Blood Pressure 105/70 Pulse Oximetry 96 97 97 08/16/21 13:00 Temperature 97.8 F Pulse Rate 82 Respiratory Rate 16 Blood Pressure 101/56 L Pulse Oximetry 99 Oxygen Delivery Method Room Air Oxygen Flow Rate 0 Narrative Exam Narrative: NO ACUTE DISTRESS.? PATIENT IS ALERT ORIENTED X3.? APPEARS MUCH OLDER THAN STATED AGE.? POOR DENTITION VITAL SIGNS STABLE HEAD ATRAUMATIC NORMOCEPHALIC NECK : SUPPLE WITHOUT ADENOPATHY NO CAROTID BRUITS EYE:? EOMI, PERRLA, NORMAL CONJUNCTIVA; NO JAUNDICE CHEST:? REGULAR RATE.? ? NO RUBS.? PMI IS NON DISPLACED.? NO MURMURS; NORMAL S1- S2 PULMONARY:? DECREASED BS OVER THE BASES.? MILD BIBASILAR CRACKLES NOTED; NO INCREASED DULLNESS TO PERCUSSION ABDOMEN:? SOFT.? NONTENDER.? NONDISTENDED.? BOWEL SOUNDS ARE PRESENT IN ALL 4 QUADRANTS.? NO MASS. EXTREMITIES: NO EDEMA..? NO CYANOSIS CLUBBING NOTED. NEURO:? CRANIAL NERVES 2-12 GROSSLY INTACT. NO FOCAL NEUROLOGICAL DEFICIT NOTED. MSK:? NORMAL RANGE OF MOTION FOR AGE.? NO JOINT EFFUSION. SKIN:? SURGICAL INCISION NOTED TO THE RIGHT BUTTOCK AND RIGHT MEDIAL THIGH.? DRESSING IN PLACE.? SEROSANGUINEOUS DRAINAGE APPRECIATED.? NO PURULENT ODOR :? NORMAL EXTERNAL GENITALIA. PSYCH :? APPROPRIATE MOOD AND AFFECT.? ALERT AWAKE ORIENTED X3 Objective Labs Result Diagrams: 08/16/21 00:55 08/16/21 00:55 Labs: Laboratory Results - last 24 hr 08/16/21 08/16/21 00:55 00:55 WBC 7.8 RBC 3.91 L Hgb 11.2 L Hct 33.3 L MCV 85.3 MCH 28.8 MCHC 33.7 RDW 14.0 Plt Count 311 Neut % (Auto) Not Reportable Lymph % (Auto) Not Reportable [place] % (Auto) Not Reportable Eos % (Auto) Not Reportable Baso % (Auto) Not Reportable Lymph # (Auto) Not Reportable [place] # (Auto) Not Reportable Baso # (Auto) Not Reportable Total Counted 100 Seg Neutrophils % 38.0 Band Neutrophils % 7.0 Lymphocytes % (Manual) 44.0 Monocytes % (Manual) 2.0 Eosinophils % (Manual) 9.0 H Neutrophils # (Manual) 3510 RBC Morphology Normal morphology Sodium 138 Potassium 4.3 Chloride 103 Carbon Dioxide 32 BUN 8 L Creatinine 0.80 Estimated GFR > 60.0 BUN/Creatinine Ratio 10.0 Glucose 121 H Calcium 8.6 Total Bilirubin 0.4 AST 38 ALT 25 Alkaline Phosphatase 86 Total Protein 7.6 Albumin 3.6 Globulin 4.0 Albumin/Globulin Ratio 0.9 L PFSH Medical History Heroin dependence Homeless Surgical History Tricuspid valve replaced Social History household members: friend(s) Smoking Status: Current every day smoker alcohol intake: current substance use type: heroin Discharge Plan Discharge Plan Patient Disposition: Home Discharge orders & Medications Prescriptions: New Bacid 1 billion cell- 250 mg Tablet 1 ea PO TIDWM Qty: 60 0RF amoxicillin-pot clavulanate [Augmentin] 875-125 mg tablet 1 tab PO Q12H Qty: 28 0RF doxycycline hyclate 100 mg capsule 100 mg PO BID Qty: 28 0RF Diet/Activity/Treatments Diet: Regular Activity: TOLERATED Skin/Wound/Dressing Care Report to your healthcare provider any signs of infection, such as:: chills, fever, night sweats and increased pain Dressing: CLEAN WOUND WITH NORMAL SALINE, GENTLY DRY, THEN GENTLY PACK WITH 4X4. SECURE WITH MEPILEX OR TAPE MAY SHOWER PRIOR TO WOUND DRESSING CHANGES. Quality VTE Deep Vein Thrombosis/Pulmonary Embolism Present on Admission: No
--- NOTE | 2021-08-16 14:35 | CM.DANOTE ---
DCP/continued: Reviewed chart. Per provider patient is medically stable for discharge today. Provider requesting CERTIFED REFRIGERATION OPERATOR see patient prior to d/c for community resources for substance abuse, homelessness, and wound care needs. Met with RN/Abdi whom reports that patient refusing any kind of outpatient wound care follow up. CERTIFED REFRIGERATION OPERATOR met briefly with patient and he reports that he is calling friends to see if he can stay with them while recovering. In addition, patient does not think he needs assistance with wound care. RN reports once wound cleaned daily it just needs to be covered. RN feels that patient can do this on his own. Patient declines any community resources including transportation. Patient reports that he will call friend's for ride and does not anticipate issue with staying with someone he knows. Notified patient that if he has difficulty with transport to notify RN whom can get CM team to assist. Patient does have Medicaid which usually covers transport. P: Patient reports that he will stay with friend's upon d/c. Patient declined resources. ALICE
--- NOTE | 2021-08-16 14:37 | PC.NURSE ---
Addendum entered by Abdi Hicks R.N. 08/16/21 19:01: Escorted out via wheelchair to discharge to stay with a friend. Addendum entered by Abdi Hicks R.N. 08/16/21 17:59: discharge instructions and home care handouts reviewed with patient. He states understanding and has no further questions or concerns. Addendum entered by Abdi Hicks R.N. 08/16/21 16:56: PICC line dc'd intact, and patient tolerated well. Patient up to shower and waiting for friend to pick him up. Dressings changed to right buttocks and right thigh without difficulty. Original Note: Talked with patient today about his plans upon discharge. He hopes to go to a rehab treatment facility in [place] that he thinks his mom might help him pay for. For now he is planning to go and stay with a friend. He says he has a friend that will help him take care of his wound. We discussed at length the need for him to take his antibiotics as prescribed and the risks of continuing his drug use. Patient declines assistance to set up wound care appointments or follow up at this time.
== END 2021-08-16 19:02 | disposition home or self-care (01) | DRG 383 ==
LOC: ED 14:09 → AC 14:54
PROVIDERS: Surgery; Admitting Provider Hospitalist; Emergency Provider Emergency Medicine; Referring Provider Emergency Medicine; Visit Provider Hospitalist
PROC: 0J990ZX Drainage of Buttock Subcutaneous Tissue and Fascia, Open Approach, Diagnostic (ICD-10-PCS; principal; 2021-08-14 10:00)
DX: L02.31 Cutaneous abscess of buttock (principal); I96 Gangrene, not elsewhere classified; L02.415 Cutaneous abscess of right lower limb; A49.01 Methicillin susceptible Staphylococcus aureus infection, unspecified site; F19.10 Other psychoactive substance abuse, uncomplicated; F17.200 Nicotine dependence, unspecified, uncomplicated; Z59.00 Homelessness unspecified; Z20.822 Contact with and (suspected) exposure to COVID-19
CPT/HCPCS: 36415; 36569; 36592; 80048; 80053; 80202; 85007; 85025; 87040; 87070; 87075; 87077; 87147; 87150; 87186; 87205; 87635; 94760; 96372; 99284; 99406; C9803; J0171; J1170; J1200; J1642; J1644; J2060; J2250; J2270; J2405; J2543; J3010

== ENCOUNTER 2022-06-17 19:22 | Emergency (ER) | payer OTHER, MEDICAID, SELFPAY ==
[2021-08-13 20:22] VITALS: BMI 25.5
[2022-06-17 19:38] VITALS: BP 146/83; PULSE 96; RESP 20; TEMP 35.7; O2SAT 100; BMI 23.7
--- NOTE | 2022-06-17 19:54 | ED_ITS ---
HPI - Skin/Abscess/Foreign Bdy General Chief complaint: Skin/Abscess/Foreign Body Stated complaint: Thinks poss staff infection Time Seen by Provider: 06/17/22 19:44 Source: patient Mode of arrival: Ambulatory Limitations: no limitations History of Present Illness HPI narrative: 32-year-old male who has a history of IV drug abuse. Has also had multiple issues with abscesses requiring incision and drainage. Also has had history of endocarditis is here for evaluation of wounds on his right hand and on his upper back and on the back of his right lower leg. He states that the wounds on his lower leg in his upper back he just noticed over the past couple days. He states that he has not injected himself in the spots. He thinks they have been draining small amount of purulent material. He does have wounds on the back of his hand. They are forming scabs. He thinks that they have been draining. He did inject himself in this area but it was several weeks ago. He states he was clean for many weeks while he was fishing in [place] but he returned to the local area. He states he has been ?stuck? here for a while which caused him to use 1 time. He states he felt very bad about doing this. He has not used since that time because he stated he did not like the way that it made him feel and he was concerned about developing other infections and other heart infections. He denies any chest pain or shortness of breath. No fevers. Related Data Previous Rx's Medication Instructions Recorded L.acidophilus-L.bulgar-B.bifid-S.thermoph 1 ea PO TIDWM #60 tabs 08/16/21 1 billion cell-250 mg tablet (Bacid) amoxicillin 875 mg-potassium 1 tab PO Q12H #28 tabs 08/16/21 clavulanate 125 mg tablet (Augmentin) doxycycline hyclate 100 mg capsule 100 mg PO BID #28 caps 08/16/21 doxycycline hyclate 100 mg capsule 100 mg PO BID 7 days #14 caps 06/17/22 Allergies Allergy/AdvReac Type Severity Reaction Status Date / Time Sulfa (Sulfonamide Allergy Intermediate Verified 08/13/21 14:09 Antibiotics) [SULFA (SULFONAMIDE ANTIBIOTICS)] Review of Systems Review of Systems ROS Unobtainable: All systems reviewed & are unremarkable except as noted in HPI and below Patient History Medical History Heroin dependence Homeless Surgical History Tricuspid valve replaced Social History household members: friend(s) Smoking Status: Former smoker alcohol intake: current substance use type: heroin Smoking Status: Former smoker tobacco type: vaping alcohol intake frequency: 0-2 drinks per day Substance Use Type: heroin and methamphetamine Exam Initial Vital Signs Initial Vital Signs: Vital Signs Temperature 96.3 F L 06/17/22 19:38 Pulse Rate 96 H 06/17/22 19:38 Respiratory Rate 20 06/17/22 19:38 Blood Pressure 146/83 H 06/17/22 19:38 Pulse Oximetry 100 06/17/22 19:38 Oxygen Delivery Method 06/17/22 19:38 HENMT Head: normal to inspection and normocephalic Resp Effort & Inspection: normal respiratory effort Cardio Rate: regular rate Skin Other: Patient does have 2 scabs on the back of his right hand. There is some minimal surrounding erythema. There is no fluctuance. He has 2 small areas of ulceration on the anterior/medial aspect of his right lower extremity. No obvious drainage. No fluctuance. Small amount of surrounding erythema. He has a small ulceration on his upper back that looks very similar to the wounds on his lower extremity. Extrem General: capillary refill normal and edema Psych Appearance: disheveled Course Orders Ordered: Discontinued Medications Doxycycline Hyclate (Doxycycline Hyclate 100 Mg Tablet) 100 mg PO NOW ONE Stop: 06/17/22 19:55 Last Admin: 06/17/22 20:06 Dose: 100 mg Documented By: BT Vital Signs Vital signs: Vital Signs - 8 hr 06/17/22 19:38 Temperature 96.3 F L Pulse Rate 96 H Respiratory Rate 20 Blood Pressure 146/83 H Pulse Oximetry 100 Oxygen Delivery Method Room Air MDM - Skin/Abscess/Foreign Bdy MDM Narrative Medical decision making narrative: Wounds as described above. I have little concern for endocarditis based on his presentation today. He does have small amount of redness around the wounds. If it was not for his history I would hold on any antibiotics however given his endocarditis history in the fact that he is had multiple abscesses I feel starting him on antibiotics is not unreasonable given the fact that the wounds on his right hand were admittedly because he injected himself. He is nontoxic appearing. He was given 1st dose of antibiotics here in the ER and a prescription was sent to the pharmacy of his choice. He was given return precautions. He expressed understanding and agreement. Discharge Plan Departure Patient Disposition: Home Clinical Impression: Cellulitis Instructions: DI for Cellulitis -- Adult Activity Restrictions/Additional Instructions: I recommend that you keep the areas clean with soap and water. Take antibiotics as directed. The prescription was sent to [facility]. Return to the emergency department for any new or worsening symptoms. Prescriptions: New doxycycline hyclate 100 mg capsule 100 mg PO BID 7 Days Qty: 14 0RF No Action Bacid 1 billion cell- 250 mg Tablet 1 ea PO TIDWM Qty: 60 0RF amoxicillin-pot clavulanate [Augmentin] 875-125 mg tablet 1 tab PO Q12H Qty: 28 0RF doxycycline hyclate 100 mg capsule 100 mg PO BID Qty: 28 0RF Visit Report Forms: Patient Portal/API
[2022-06-17] MEDS: DOXYCYCLINE HYCLATE 100 MG TABLET PO (20:06)
--- NOTE | 2022-06-17 21:33 | PC.NURSE ---
two scabbed areas near thumb on rt hand.
== END 2022-06-17 21:00 | disposition home or self-care (01) ==
PROVIDERS: Emergency Provider Emergency Medicine
DX: L03.113 Cellulitis of right upper limb (principal)
CPT/HCPCS: 99283

== ENCOUNTER 2023-03-26 14:14 | Observation (INO) | payer OTHER, MEDICAID, SELFPAY ==
[2021-08-13 20:22] VITALS: BMI 25.5
[2023-03-26] VITALS (9 sets, daily range): BP systolic 99–121; BP diastolic 48–76; PULSE 62–89; RESP 9–22; TEMP 36.3–37; O2SAT 96–100; BMI 28.4
--- NOTE | 2023-03-26 14:24 | DI.RAD.S_ITS ---
PROCEDURE: XR CHEST 1V INDICATIONS: suspected sepsis TECHNIQUE: One view of the chest was acquired. COMPARISON: [facility], CR, XR CHEST FOR PICC 1V, 08/13/2021, 18:59. [facility], CR, XR CHEST FOR PICC 1V, 07/04/2021, 9:49. FINDINGS: Surgical changes and devices: Sternotomy wires in place. Lungs and pleura: Lungs are clear. No pleural effusions or pneumothorax. Mediastinum: Mediastinal contours appear normal. Heart size is normal. Bones and chest wall: No suspicious bony lesions. Overlying soft tissues appear unremarkable. IMPRESSION: No acute cardiopulmonary process. Dictated by: Rei Mason M.D. on 03/26/2023 at 14:50 Approved by: Rei Mason M.D. on 03/26/2023 at 14:51
[2023-03-26] MEDS: SODIUM CHLORIDE 0.9% 1,000 ML 1000 ML IV (14:54)
[2023-03-26] MEDS: ONDANSETRON 4 MG/2 ML INJ IV (14:55)
[2023-03-26 15:00] LABS: Appearance Urine UA CLEAR; Bilirubin Urine UA 1+ (NEGATIVE); Color Urine UA YELLOW; Glucose Urine UA NEGATIVE (Negative); Ketones Urine UA TRACE (NEGATIVE); Leukocyte Esterase Urine UA NEGATIVE (NEGATIVE); Nitrite Urine UA NEGATIVE (Negative); Occult Blood Urine UA NEGATIVE (Negative); Protein Urine UA 1+ (Negative); Specific Gravity Urine UA 1.025 (1.000-1.035); pH Urine UA 6.5 (4.5-8.0)
[2023-03-26 15:01] LABS: Add Manual Diff / Slide Review NO; Basophils Absolute Auto 0 /uL (0-100); Basophils Percent Auto 0.4 % (0-2); Eosinophils Absolute Auto 0 /uL (0-450); Eosinophils Percent Auto 0.5 % (2-4); Hematocrit 34.5 % (41-53); Hemoglobin 11.7 g/dL (13.5-17.5); Lymphocytes Absolute Auto 1900 /uL (1100-4500); Lymphocytes Percent Auto 28.5 % (25-40); Mean Corpuscular HGB Conc 33.9 % (30-36); Mean Corpuscular Hemoglobin 29.4 PG (26-34); Mean Corpuscular Volume 86.6 fL (80-100); Monocytes Absolute Auto 600 /uL (0-900); Monocytes Percent Auto 9.3 % (3-14); Neutrophils Absolute Auto 4100 /uL (1500-7000); Neutrophils Percent Auto 61.3 % (50-75); Platelet Count 240 X10^3/uL (150-400); Red Blood Cell Count 3.98 X10^6/uL (4.5-5.9); Red Cell Distribution Width 14.6 % (11.6-14.8); White Blood Cell Count 6.7 X10^3/uL (4.5-11.0)
[2023-03-26 15:08] LABS: Bacteria Urine Few (2-10); Culture Indicated Urine Specimen Cultured; INR 1.5 (0.9-1.3); Mucus Urine 2+ (Negative); Prothrombin Time 17.3 SECONDS (10.1-12.7); RBC Urine None Seen (0-5/HPF); Squamous Epithelial Cell Urine 5-10 /HPF (0-5/HPF); WBC Urine 10-30/HPF (0-5/HPF)
[2023-03-26 15:10] LABS: Ictotest Urine Negative (Negative); PTT Partial Thromboplastin Tim 51 SECONDS (26-36)
[2023-03-26 15:13] LABS: Lactate (Lactic Acid) 1.3 mmol/L (0.7-2.1)
[2023-03-26 15:14] LABS: Alanine Aminotransferase 28 IU/L (<50); Albumin 4.2 g/dL (3.5-5.0); Alkaline Phosphatase 103 U/L (38-126); Aspartate Aminotransferase 40 IU/L (17-59); BUN Creatinine Ratio 13.2 (6-22); Bilirubin Total 0.7 mg/dL (0.2-1.3); Blood Urea Nitrogen 10 mg/dL (9-20); Carbon Dioxide 30 mmol/L (22-32); Chloride 99 mmol/L (98-107); Estimated Glomerular Filt Rate > 60 mL/min (>60); Globulin 4.1 g/dL (1.7-4.1); Glucose 86 mg/dL (70-100); HEMOLYSIS < 15 (0-50); Lipase 38 U/L (23-300); Potassium 3.6 mmol/L (3.4-5.1); Sodium 138 mmol/L (137-145); Total Protein 8.3 g/dL (6.3-8.2)
--- NOTE | 2023-03-26 15:28 | ED.SKABFB ---
HPI - Skin/Abscess/Foreign Bdy General Chief complaint: Skin/Abscess/Foreign Body Stated complaint: STAPH INF ON LT LEG Time Seen by Provider: 03/26/23 14:59 Source: patient Mode of arrival: Ambulatory History of Present Illness HPI narrative: 33-year-old male with history of IV drug abuse and prior skin infections, tricuspid replacement, endocarditis presents with a chief complaint of worsening left lower extremity pain, swelling, redness and drainage over the past few days. He states that at least a few weeks ago he was vigorously scrubbing the posterior aspect of his left calf, trying to remove skin when he caused a deep abrasion and subsequently developed some infection which he hoped would clear on its own. He had been doing well but over the past week or at least few days he is developed multiple other areas of scabbing and drainage with increased pain and swelling. He has had subjective fever but denies any chills or rigors. He has no chest pain or shortness of breath. He is had no nausea or vomiting. He admits to smoking fentanyl but has not had any IV drug abuse and some time. Related Data Previous Rx's Medication Instructions Recorded L.acidophilus-L.bulgar-B.bifid-S.thermoph 1 ea PO TIDWM #60 tabs 08/16/21 1 billion cell-250 mg tablet (Bacid) amoxicillin 875 mg-potassium 1 tab PO Q12H #28 tabs 08/16/21 clavulanate 125 mg tablet (Augmentin) doxycycline hyclate 100 mg capsule 100 mg PO BID #28 caps 08/16/21 Allergies Allergy/AdvReac Type Severity Reaction Status Date / Time Sulfa (Sulfonamide Allergy Intermediate Verified 08/13/21 14:09 Antibiotics) [SULFA (SULFONAMIDE ANTIBIOTICS)] Review of Systems Review of Systems Narrative: GENERAL: Denies chills, fatigue, malaise, fever, sweats. HEENT: Denies sinus pain, ear pain, sore throat, difficulty swallowing, dizziness. RESPIRATORY: Denies dyspnea, cough, wheezing, hemoptysis, sputum. CARDIOVASCULAR: Denies chest pain, palpitations, orthopnea, edema, GASTROINTESTINAL: Denies nausea, vomiting, abdominal pain, diarrhea, constipation, melena. : Denies dysuria, frequency, incontinence, hematuria, urinary retention. MUSCULOSKELETAL: denies weakness, joint pain, or bony pain SKIN: See HPI NEUROLOGIC: Denies weakness, headache, numbness, change in speech, confusion, seizures, incoordination. PSYCHIATRIC: No concerning psychosocial issues. 12 point review of systems is negative except for those stated above Patient History Medical History Heroin dependence Homeless Surgical History Tricuspid valve replaced Social History household members: friend(s) Smoking Status: Former smoker alcohol intake: current substance use type: heroin Smoking Status: Former smoker tobacco type: vaping alcohol intake frequency: 0-2 drinks per day Substance Use Type: opiates Exam Narrative Exam Narrative: GENERAL: [31] year old patient appears stated age. Well-developed patient, in mild distress. HEAD: Atraumatic. Normocephalic. EYES: Pupils equal round and reactive. Extraocular motions intact. No scleral icterus. No injection or drainage. ENT: Nose without bleeding, purulent drainage. Throat without erythema, tonsillar hypertrophy or exudate. Airway patent. NECK: Trachea midline. Non tender CARDIOVASCULAR: Regular rate and rhythm without murmurs, gallops, or rubs. RESPIRATORY: Clear to auscultation. Breath sounds equal bilaterally. No wheezes, rales, or rhonchi. GASTROINTESTINAL: Abdomen soft, non-tender, nondistended. EXTREMITIES: Left lower extremity with circumferential erythema, warmth, tenderness and swelling, multiple scabbed lesions with purulent drainage, culture obtained and sent to lab BACK: Nontender without deformity or crepitance. No flank tenderness. NEURO: AOx3. SKIN: No rash or erythema of visible areas Initial Vital Signs Initial Vital Signs: Vital Signs Temperature 98.6 F 03/26/23 14:15 Pulse Rate 89 03/26/23 14:15 Respiratory Rate 16 03/26/23 14:15 Blood Pressure 121/75 03/26/23 14:15 Pulse Oximetry 98 03/26/23 14:15 Oxygen Delivery Method Room Air 03/26/23 14:15 Course Orders Ordered: ED Orders 03/26/23 14:24 XR chest 1V Stat RT Consult Eval and Treat NOW 03/26/23 14:30 Wound Culture and Gram Stain Stat 03/26/23 14:33 EKG-12 Lead Stat 03/26/23 14:44 Complete Blood Count AUTO DIFF Stat Comprehensive Metabolic Panel Stat Ictotest Urine Stat Lactate (Lactic Acid) Stat Lipase Stat PTT Partial Thromboplastin [place] Stat Procalcitonin Stat Prothrombin Time INR Stat Urinalysis and Microscopic Stat Urine Culture Stat 03/26/23 15:34 CT LE LT w con Stat 03/26/23 15:45 Blood Culture Stat Vancomycin HCl/Dextrose (Vancomycin) 2,000 mg in 400 mls @ 200 mls/hr IV NOW ONE Stop: 03/26/23 17:33 Last Admin: 03/26/23 15:47 Dose: 200 mls/hr Documented By: DAVID Ondansetron HCl (Ondansetron 4 Mg Odt) 4 mg SL NOW PRN PRN Reason: Nausea And Vomiting Discontinued Medications Hydromorphone HCl (Hydromorphone 1 Mg Inj) 1 mg IV NOW ONE Stop: 03/26/23 15:35 Last Admin: 03/26/23 15:47 Dose: 1 mg Documented By: DAVID Sodium Chloride (Normal Saline 0.9%) 1,000 mls @ 1,000 mls/hr IV BOLUS ONE Stop: 03/26/23 15:23 Last Admin: 03/26/23 14:54 Dose: 1,000 mls/hr Documented By: GABBI Ondansetron HCl (Ondansetron 4 Mg/2 Ml Inj) 4 mg IV NOW PRN PRN Reason: Nausea And Vomiting Last Admin: 03/26/23 14:55 Dose: 4 mg Documented By: GABBI Vital Signs Vital signs: Vital Signs - 8 hr 03/26/23 14:15 03/26/23 14:43 03/26/23 14:48 Temperature 98.6 F Pulse Rate 89 62 Respiratory Rate 16 Blood Pressure 121/75 99/64 Pulse Oximetry 98 Oxygen Delivery Method Room Air 03/26/23 14:48 03/26/23 15:00 03/26/23 15:00 Temperature Pulse Rate 84 87 Respiratory Rate 10 L Blood Pressure 104/66 Pulse Oximetry 99 Oxygen Delivery Method 03/26/23 15:30 03/26/23 15:52 03/26/23 15:52 Temperature Pulse Rate 80 71 Respiratory Rate 19 9 L Blood Pressure 114/75 Pulse Oximetry 99 96 Oxygen Delivery Method 03/26/23 16:00 03/26/23 16:00 Temperature Pulse Rate 74 Respiratory Rate 16 Blood Pressure 102/57 L Pulse Oximetry 97 Oxygen Delivery Method MDM - Skin/Abscess/Foreign Bdy Lab Data 03/26/23 14:44 03/26/23 14:44 Labs: Lab Results 03/26/23 03/26/23 03/26/23 Range/Units 14:44 14:44 14:44 WBC 6.7 (4.5-11.0) X10^3/uL RBC 3.98 L (4.5-5.9) X10^6/uL Hgb 11.7 L (13.5-17.5) g/dL Hct 34.5 L (41-53) % MCV 86.6 (80-100) fL MCH 29.4 (26-34) PG MCHC 33.9 (30-36) % RDW 14.6 (11.6-14.8) % Plt Count 240 (150-400) X10^3/uL Neut % (Auto) 61.3 (50-75) % Lymph % (Auto) 28.5 (25-40) % Andrew % (Auto) 9.3 (3-14) % Eos % (Auto) 0.5 L (2-4) % Baso % (Auto) 0.4 (0-2) % Neut # (Auto) 4100 (9195-1965) /uL Lymph # (Auto) 1900 (1617-9057) /uL Andrew # (Auto) 600 (0-900) /uL Eos # (Auto) 0 (0-450) /uL Baso # (Auto) 0 (0-100) /uL PT 17.3 H (10.1-12.7) SECONDS INR 1.5 H (0.9-1.3) APTT 51 H (26-36) SECONDS Sodium 138 (137-145) mmol/L Potassium 3.6 (3.4-5.1) mmol/L Chloride 99 (98-107) mmol/L Carbon Dioxide 30 (22-32) mmol/L BUN 10 (9-20) mg/dL Creatinine 0.76 (0.66-1.25) mg/dL Estimated GFR > 60 (>60) mL/min BUN/Creatinine Ratio 13.2 (6-22) Glucose 86 (70-100) mg/dL Lactate (0.7-2.1) mmol/L Calcium 9.0 (8.4-10.2) mg/dL Total Bilirubin 0.7 (0.2-1.3) mg/dL AST 40 (17-59) IU/L ALT 28 (<50) IU/L Alkaline Phosphatase 103 (38-126) U/L Total Protein 8.3 H (6.3-8.2) g/dL Albumin 4.2 (3.5-5.0) g/dL Globulin 4.1 (1.7-4.1) g/dL Albumin/Globulin Ratio 1.0 (1.0-2.8) Lipase 38 (23-300) U/L Procalcitonin 0.04 (<0.5) ng/mL Urine Color Urine Appearance Urine pH (4.5-8.0) Ur Specific [place] (1.000-1.035) Urine Protein (Negative) Urine Glucose (UA) (Negative) g/dL Urine Ketones (NEGATIVE) Urine Occult Blood (Negative) Urine Nitrate (Negative) Urine Bilirubin (NEGATIVE) Ur Bilirubin Confirm (Negative) Urine Urobilinogen (0.2) E.U./dL Ur Leukocyte Esterase (NEGATIVE) Urine RBC (0-5/HPF) Urine WBC (0-5/HPF) Ur Squamous Epith Cells (0-5/HPF) Urine Bacteria (None) Urine Mucus (Negative) Ur Culture Indicated? 03/26/23 03/26/23 Range/Units 14:44 14:44 WBC (4.5-11.0) X10^3/uL RBC (4.5-5.9) X10^6/uL Hgb (13.5-17.5) g/dL Hct (41-53) % MCV (80-100) fL MCH (26-34) PG MCHC (30-36) % RDW (11.6-14.8) % Plt Count (150-400) X10^3/uL Neut % (Auto) (50-75) % Lymph % (Auto) (25-40) % Andrew % (Auto) (3-14) % Eos % (Auto) (2-4) % Baso % (Auto) (0-2) % Neut # (Auto) (3673-4683) /uL Lymph # (Auto) (0121-7515) /uL Andrew # (Auto) (0-900) /uL Eos # (Auto) (0-450) /uL Baso # (Auto) (0-100) /uL PT (10.1-12.7) SECONDS INR (0.9-1.3) APTT (26-36) SECONDS Sodium (137-145) mmol/L Potassium (3.4-5.1) mmol/L Chloride (98-107) mmol/L Carbon Dioxide (22-32) mmol/L BUN (9-20) mg/dL Creatinine (0.66-1.25) mg/dL Estimated GFR (>60) mL/min BUN/Creatinine Ratio (6-22) Glucose (70-100) mg/dL Lactate 1.3 (0.7-2.1) mmol/L Calcium (8.4-10.2) mg/dL Total Bilirubin (0.2-1.3) mg/dL AST (17-59) IU/L ALT (<50) IU/L Alkaline Phosphatase (38-126) U/L Total Protein (6.3-8.2) g/dL Albumin (3.5-5.0) g/dL Globulin (1.7-4.1) g/dL Albumin/Globulin Ratio (1.0-2.8) Lipase (23-300) U/L Procalcitonin (<0.5) ng/mL Urine Color Yellow Urine Appearance Clear Urine pH 6.5 (4.5-8.0) Ur Specific [place] 1.025 (1.000-1.035) Urine Protein 1+ H (Negative) Urine Glucose (UA) Negative (Negative) g/dL Urine Ketones Trace H (NEGATIVE) Urine Occult Blood Negative (Negative) Urine Nitrate Negative (Negative) Urine Bilirubin 1+ H (NEGATIVE) Ur Bilirubin Confirm Negative (Negative) Urine Urobilinogen 4.0 H (0.2) E.U./dL Ur Leukocyte Esterase Negative (NEGATIVE) Urine RBC None seen (0-5/HPF) Urine WBC 10-30/hpf H (0-5/HPF) Ur Squamous Epith Cells 5-10 /hpf H (0-5/HPF) Urine Bacteria Few (2-10) H (None) Urine Mucus 2+ H (Negative) Ur Culture Indicated? Specimen cultured MDM Narrative Medical decision making narrative: CC: 33-year-old male with left lower extremity pain, swelling, redness and drainage Complicating co-morbidities: Prior IV drug abuse, prior abscess Data collected from: Patient Medical records reviewed: Prior notes reviewed in our EMR Differential considered, but not limited to: Abscess versus cellulitis versus other Exam documented above, pertinent findings include: Worsening circumferential left lower extremity pain, swelling and redness with drainage Lab Test results independently reviewed as above. Pertinent findings: No significant leukocytosis or left shift Independently reviewed EKG as above Imaging studies independently reviewed: CT LE w/IV contrast demonstrates nonspecific subcu edema throughout the lower leg consistent with cellulitis, no abscess, no signs of fasciitis or osteomyelitis Consultations: Discussed with Dr. Madrid, she is happy to accept patient on her service Treatments: Normal saline, hydromorphone, Zofran, vancomycin 2000 mg Discussion: Former IV drug abuser presents with a few days of rapidly worsening left lower leg circumferential erythema, edema pain and drainage purulent, foul-smelling liquid. He does not meet septic criteria, labs and many ways are largely reassuring, imaging of the lower extremity with IV contrast demonstrates edematous change consistent with cellulitis but no evidence of a deep abscess, fasciitis or osteomyelitis. Patient requires hospitalization for treatment of his left lower leg infection. Patient understands and agrees with the diagnosis and plan Discharge Plan Departure Patient Disposition: Admitted As Inpatient Clinical Impression: Cellulitis of lower extremity Admit Date/Time: 03/26/23 16:25 Admit Provider: Meena Madrid
[2023-03-26 15:29] LABS: Procalcitonin 0.04 ng/mL (<0.5)
--- NOTE | 2023-03-26 15:34 | DI.CT.S_ITS ---
PROCEDURE: CT LE LT W CON INDICATIONS: pain swelling, drainage, deep infection? TECHNIQUE: After the administration of intravenous contrast, 1 mm axial sections acquired of the left lower leg, with coronal and sagittal reformats. COMPARISON: [facility], CT, CT LE RT W CON, 12/08/2019, 13:33. FINDINGS: Image quality: Excellent. Bones: No acute osseous fracture or dislocation. No focal cortical erosion is seen. Soft tissues: Subcutaneous edema is seen throughout the left lower leg no focal fluid collection is seen to suggest abscess formation. No intermuscular fascial edema or soft tissue gas. No enhancing soft tissue mass. IMPRESSION: Diffuse nonspecific subcutaneous edema throughout the lower leg, which may represent cellulitis. No focal abscess. No signs of fasciitis or osteomyelitis. Approved by: Jelani Walden M.D. on 03/26/2023 at 16:16
[2023-03-26] MEDS: HYDROMORPHONE 1 MG INJ IV (15:47)
[2023-03-26] MEDS: VANCOMYCIN 2,000 MG/400 ML PIGGYBACK 200 MG IV (15:47)
[2023-03-26] MEDS: HYDROMORPHONE 2 MG TABLET PO (17:54)
[2023-03-26] MEDS: ACETAMINOPHEN 325 MG TABLET 650 MG PO (17:55)
[2023-03-26] MEDS: cefTRIAXone 2,000 MG in SODIUM CHLORIDE 0.9% 100 ML 100 MG IV (21:18)
[2023-03-26] MEDS: SODIUM CHLORIDE 0.9% FLUSH 10 ML IV (21:19)
--- NOTE | 2023-03-26 23:33 | P.HP_ITS ---
History of Present Illness History of Present Illness Chief complaint: STAPH INF ON LT LEG Narrative: 33-year-old male with history of IV drug abuse and prior skin infections, tricuspid replacement in 2016, endocarditis presents with a chief complaint of worsening left lower extremity pain, swelling, redness and drainage over the past few days.? He states that at least a few weeks ago he was vigorously scrubbing the posterior aspect of his left calf, trying to remove skin when he caused a deep abrasion and subsequently developed some infection which he hoped would clear on its own.? He had been doing well but over the past week or at least few days he is developed multiple other areas of scabbing and drainage with increased pain and swelling.? He has had subjective fever but denies any chills or rigors.? He has no chest pain or shortness of breath.? He is had no nausea or vomiting.? He admits to smoking fentanyl for the last 2 months, but has not had any IV drug abuse and some time. In the ER the patient was gien ceftriaxonev, vancomycin and was decided to be admitted for further management. FOR[facility]LY [facility], [facility] Medical History (Updated 03/26/23 @ 23:36 by Dwight Shelton MD) Abscess of skin or subcutaneous tissue Abscess, gluteal, right Cellulitis and abscess of hand Endocarditis Heroin dependence Homeless Pneumonia Surgical History (Updated 03/26/23 @ 19:43 by Dwight Shelton MD) Tricuspid valve replaced Social History household members: none Smoking Status: Former smoker alcohol intake: current substance use type: heroin Meds Home Medications and Allergies Home Medications Medication Instructions Recorded Confirmed Type No Known Home Medications 03/26/23 03/26/23 History Allergies Allergy/AdvReac Type Severity Reaction Status Date / Time Sulfa (Sulfonamide Allergy Intermediate Verified 08/13/21 14:09 Antibiotics) [SULFA (SULFONAMIDE ANTIBIOTICS)] Review of Systems Constitutional Constitutional: Reports as per HPI and Reports system reviewed and no additional complaints, except as documented Eyes Eyes: Reports as per HPI and Reports system reviewed and no additional c omplaints, except as documented ENT Ears, Nose, Mouth, and Throat: Yes as per HPI, Yes system reviewed and no additional complaints, except as documented, No dysphagia, No neck pain and No odynophagia Cardiovascular Cardiovascular: Reports system reviewed and no additional complaints, except as documented Respiratory Respiratory: Reports system reviewed and no additional complaints, except as documented Gastrointestinal Gastrointestinal: Denies as per HPI, Reports system reviewed and no additional c omplaints, except as documented, Denies abdominal pain, Denies belching, Denies melena, Denies bloating, Denies hematochezia, Denies change in bowel habits, Denies tenesmus, Denies change in stool character, Denies coffee ground emesis, Denies constipation, Denies cramping, Denies dysphagia, Denies excessive flatus, Denies heartburn, Denies loose stools, Denies nausea, Denies odynophagia, Denies vomiting, Denies hematemesis and Reports other Genitourinary Genitourinary: Denies change in libido Musculoskeletal Musculoskeletal: Denies as per HPI, Denies system reviewed and no additional complaints, except as documented, Denies abnormal gait, Denies back pain, Denies myalgias, Denies atrophy, Denies deformity, Denies arthralgias, Denies joint swelling, Denies limited range of motion, Denies loss of height, Denies muscle cramps, Denies muscle weakness, Denies neck pain, Denies numbness, Denies radiating pain into limb, Denies stiffness, Denies tingling and Denies other Neurologic Neurologic: Denies abnormal gait, Denies behavioral changes, Denies confusion, Denies memory loss, Denies numbness and Denies tingling Psychiatric Psychiatric: Denies as per HPI, Reports system reviewed and no additional complaints, except as documented, Denies abnormal sleep pattern, Denies anxiety, Denies behavioral changes, Denies change in appetite, Denies change in libido, Denies confusion, Denies depression, Denies difficulty concentrating, Denies auditory hallucinations, Denies hopelessness, Denies irritability, Denies anhedonia, Denies memory loss, Denies mood swings, Denies panic attacks, Denies paranoia, Denies visual hallucinations, Denies hallucinations, Denies tactile hallucinations, Denies homicidal ideation, Denies suicidal ideation and Denies other Endocrine Endocrine: Denies change in libido Exam Vital Signs (past 8 hours): - 03/26/23 15:52 03/26/23 15:52 03/26/23 16:00 Temperature Pulse Rate 71 Respiratory Rate 9 L Blood Pressure 114/75 102/57 L Pulse Oximetry 96 Oxygen Delivery Method Oxygen Flow Rate 03/26/23 16:00 03/26/23 17:23 03/26/23 17:37 Temperature 97.4 F L Pulse Rate 74 66 Respiratory Rate 16 22 Blood Pressure 117/76 Pulse Oximetry 97 100 Oxygen Delivery Method Room Air Oxygen Flow Rate 0 03/26/23 20:00 Temperature 97.8 F Pulse Rate 71 Respiratory Rate 16 Blood Pressure 99/48 L Pulse Oximetry 98 Oxygen Delivery Method Oxygen Flow Rate Oxygen Delivery Method Room Air Oxygen Flow Rate 0 Const General: cooperative, comfortable and well developed Orientation: alert and oriented x3 HENMT Head: normal to inspection and atraumatic Face and sinus: normal facial exam Mouth: oral mucosae normal and moist mucous membranes Throat: posterior oropharynx normal Eyes General: appearance normal, both eyes and all related structures Pupils: PERRL EOM: EOM intact bilaterally Neck Neck: normal visual inspection and full ROM Chest Chest: normal inspection of the chest Resp Effort & Inspection: normal respiratory effort and able to speak in complete sentences Auscultation: clear to auscultation bilaterally Cardio Palpation: normal PMI Rate: regular rate Rhythm: regular rhythm Heart Sounds: S1 normal and S2 normal GI Inspection: normal to inspection Palpation: soft and no hepatosplenomegaly Auscultation: normal bowel sounds Skin General: no rashes or lesions noted Neuro General: patient alert, patient awake, patient oriented x3 and no focal motor deficits Cognition: normal cognition Motor: muscle tone normal throughout Sensory Exam: no sensory deficits noted Extrem General: full ROM and no calf tenderness Psych Appearance: grossly normal Mental Status: mental status grossly normal Speech and Movement: speech and movement normal Objective Labs 03/26/23 14:44 03/26/23 14:44 Labs: Laboratory Results - last 24 hr 03/26/23 03/26/23 03/26/23 14:44 14:44 14:44 WBC 6.7 RBC 3.98 L Hgb 11.7 L Hct 34.5 L MCV 86.6 MCH 29.4 MCHC 33.9 RDW 14.6 Plt Count 240 Neut % (Auto) 61.3 Lymph % (Auto) 28.5 [place] % (Auto) 9.3 Eos % (Auto) 0.5 L Baso % (Auto) 0.4 Neut # (Auto) 4100 Lymph # (Auto) 1900 [place] # (Auto) 600 Eos # (Auto) 0 Baso # (Auto) 0 PT 17.3 H INR 1.5 H APTT 51 H Sodium 138 Potassium 3.6 Chloride 99 Carbon Dioxide 30 BUN 10 Creatinine 0.76 Estimated GFR > 60 BUN/Creatinine Ratio 13.2 Glucose 86 Lactate Calcium 9.0 Total Bilirubin 0.7 AST 40 ALT 28 Alkaline Phosphatase 103 Total Protein 8.3 H Albumin 4.2 Globulin 4.1 Albumin/Globulin Ratio 1.0 Lipase 38 Procalcitonin 0.04 Urine Color Urine Appearance Urine pH Ur Specific Burton Urine Protein Urine Glucose (UA) Urine Ketones Urine Occult Blood Urine Nitrate Urine Bilirubin Ur Bilirubin Confirm Urine Urobilinogen Ur Leukocyte Esterase Urine RBC Urine WBC Ur Squamous Epith Cells Urine Bacteria Urine Mucus Ur Culture Indicated? 03/26/23 03/26/23 14:44 14:44 WBC RBC Hgb Hct MCV MCH MCHC RDW Plt Count Neut % (Auto) Lymph % (Auto) [place] % (Auto) Eos % (Auto) Baso % (Auto) Neut # (Auto) Lymph # (Auto) [place] # (Auto) Eos # (Auto) Baso # (Auto) PT INR APTT Sodium Potassium Chloride Carbon Dioxide BUN Creatinine Estimated GFR BUN/Creatinine Ratio Glucose Lactate 1.3 Calcium Total Bilirubin AST ALT Alkaline Phosphatase Total Protein Albumin Globulin Albumin/Globulin Ratio Lipase Procalcitonin Urine Color Yellow Urine Appearance Clear Urine pH 6.5 Ur Specific Burton 1.025 Urine Protein 1+ H Urine Glucose (UA) Negative Urine Ketones Trace H Urine Occult Blood Negative Urine Nitrate Negative Urine Bilirubin 1+ H Ur Bilirubin Confirm Negative Urine Urobilinogen 4.0 H Ur Leukocyte Esterase Negative Urine RBC None seen Urine WBC 10-30/hpf H Ur Squamous Epith Cells 5-10 /hpf H Urine Bacteria Few (2-10) H Urine Mucus 2+ H Ur Culture Indicated? Specimen cultured Assessment & Plan Assessment and plan (1) Cellulitis of lower extremity: Qualifiers: Laterality: left Qualified Code(s): L03.116 - Cellulitis of left lower limb Status: Acute Plan: no signs of sepsis. -Antibiotics of Vancomycin, ceftriaxone, -Blood cultures times 2, wound cultures, wound care. -Elevate the affected area/limb -Pain medications when necessary, -check for MRSA and if negative, can DC vancomycin -In patients with significant swelling/edema get venous duplex to rule out DVT (2) Heroin dependence: Status: Acute Plan: monitor for any withdrawal symptoms. (3) Tricuspid valve replaced: Status: Acute Plan: not on any blood thinners. Seems stable. Monitor for now. Low suspicious for endocarditis. Time Spent With Patient Time with patient: 50 to 69 minutes with 50% spent counseling/coordinating care Quality VTE Deep Vein Thrombosis/Pulmonary Embolism Present on Admission: No MIPS - Admit I confirm the patient?s Advance Care Plan is present, Code status is documented, Surrogate decision maker is in patient?s record [If Yes, STOP here]: Yes MIPS - Meds 'Current medications' to include all prescriptions, [id number] products, herbals, cannabis/cannabidiol products, and vitamin/mineral/dietary (nutrition al) supplements. I have utilized all available resources to obtain, update, or review the patient?s current medications. [If Yes, STOP here]: Yes
[2023-03-27] MEDS: HYDROMORPHONE 1 MG INJ IV ×2 (02:30→07:45)
[2023-03-27] MEDS: VANCOMYCIN 1,250 MG/250 ML PIGGYBACK 100 MG IV (04:03)
[2023-03-27] MEDS: HYDROMORPHONE 0.5 MG INJ 1 MG IV (04:30)
[2023-03-27] MEDS: diphenhydrAMINE 50 MG/ML VIAL 25 MG IV (04:31)
[2023-03-27 04:32] VITALS: BP 104/70; PULSE 66; RESP 25; TEMP 36.5; O2SAT 98
--- NOTE | 2023-03-27 05:15 | PC.NURSE ---
Addendum entered by Afua Pickett R.N. 03/27/23 05:26: continued: patient scratching at calf, fingers are not very clean. encouraged to refrain from scratching. orders received to give dilauded 1mg x1 (extra dose) and IV benadryl w/ fair effect. top of castellon scab is bleeding slightly. encouraged to patient to allow wrapping of LE to prevent further damage to skin from itching or rubbing against linens. patient agreeable, and LE was wrapped w/ ABD pad, non-adherant pad and wrapped w/ conforming gauze, and taped into place. patient tolerated fairly well, and became much calmer/ more quiet when it was wrapped. encouraged to turn side to side- to prevent pressure on calf while laying supine. call light w/in reach. Original Note: patient a/o, voices needs. LLE w/ 2-3+ edema, redness, weeping, warm to the touch. elevated on pillows w/ shucks pad. tolerating IV abx, ceftriaxone and vanco. PRN dilauded IVP given w/ fair effect. 0430: mod amount of weeping from LLE: numerous quarter sized scabs scattered on top of leg. back of calf has approx 8cm roundish open area that stuck to shucks pad. patient reported 10/10 pain to LLE, too early to give PRN dilauded IVP, contacted MD Shelton, requesting order for dilauded 1mg IVP x 1, and benadryl IVP as patient is itching sanjeev
[2023-03-27] MEDS: HYDROMORPHONE 2 MG TABLET PO (06:15)
[2023-03-27 08:19] VITALS: BP 105/67; PULSE 83; RESP 19; TEMP 36.6; O2SAT 100
[2023-03-27] MEDS: HYDROMORPHONE 2 MG TABLET 4 MG PO (08:48)
[2023-03-27] MEDS: SODIUM CHLORIDE 0.9% FLUSH 10 ML IV ×2 (08:49→20:50)
--- NOTE | 2023-03-27 09:17 | PC.NURSE ---
At 0910 RN received call from Microbiology reporting critical lab of pt's leg infected with Group A Strep. RN reported critical to provider.
[2023-03-27] MEDS: HYDROMORPHONE 1 MG INJ 2 MG IV ×4 (10:25→21:47)
[2023-03-27] MEDS: OXYCODONE IR 10 MG TABLET 20 MG PO (11:30)
[2023-03-27] MEDS: VANCOMYCIN 1,250 MG/250 ML PIGGYBACK 250 MG IV ×2 (11:32→21:45)
--- NOTE | 2023-03-27 12:15 | PC.NURSE ---
Spoke with provider about patient's pain regimen. Pt continues to have uncontrolled pain and is visibly in pain. Provider adjusting orders.
[2023-03-27] MEDS: LORazepam 2 MG/ML INJ IV ×2 (12:22→21:03)
[2023-03-27 12:45] VITALS: BP 100/67; PULSE 80; RESP 22
[2023-03-27 13:10] VITALS: BP 100/67; PULSE 80; RESP 17; TEMP 37.2; O2SAT 98
[2023-03-27] MEDS: OXYCODONE IR 10 MG TABLET 30 MG PO (14:15)
[2023-03-27] MEDS: diazePAM 5 MG TABLET 10 MG PO (14:23)
[2023-03-27] MEDS: ALPRAZolam 0.5 MG TABLET 2 MG PO (14:58)
--- NOTE | 2023-03-27 15:32 | PC.NURSE ---
Spoke with provider about 1445 requesting that provider see patient to help eval/treat pain and anxiety.
--- NOTE | 2023-03-27 15:33 | CM.DANOTE ---
Addendum entered by ABDI Avelar 03/27/23 15:39: INFORMATION TECHNOLOGY CONSULTANT called wound care and LVM to give them a heads up that provider requested a consult. DEAN Original Note: Assessment Note Brief Patient is a 33yo male here following staph infection in left leg. PCP Unlisted Payer [facility] and Medicaid INFORMATION TECHNOLOGY CONSULTANT reviewed EMR. Per provider in rounds, patient is a current fetanyl user and has a history of IV heroin usage. Patient needs 7 days of IV antibiotics, may be able to switch to PO. INFORMATION TECHNOLOGY CONSULTANT attempted to speak with patient. Patient was screaming/moaning with pain. Nursing staff reported they are struggling to control his pain due to history of drug usage. Nursing staff advised to speak with patient in the morning when pain is hopefully more controlled. Plan: CM team will conduct full assessment when able to identify needs. Likely resources for drug uses and PCP. CM team will continue to follow closely. ABDI Avelar Discharge Planning/Care Management Advanced directive, confirm from CLINIC Start: 03/26/23 18:02 Freq: Q24H Status: Active Protocol: Document 03/26/23 18:02 BV (Rec: 03/27/23 02:34 BV [id number]) Advance Directive, confirm on record Time 02:33 Person contacted patient Copy received No Copy received No Advanced directive available on record No CM Discharge Assessment Start: 03/27/23 15:31 Freq: Status: Active Protocol: Document 03/27/23 15:31 (Rec: 03/27/23 15:33 [id number]) Discharge Planning Assessment Assigned Manager Of Software Development ABDI Diaz DPOA/Assigned Designee Name NA Advance Directives? No Advance Directives on File No History Provided By Medical Record Prior Living Arrangements RV Household Members none Type of transporation used prior to Drives own vehicle admit Independent with ADL's Yes Is patient alert and oriented? Yes Comment Unless cannot d/c on orals and needs IV-Abx, then barriers to d/c due to drug abuse Discharge Plan Home Transportation Arrangement mother or medicaid transport Referrals Initiated None needed Whiteboard Updated in Patient Room with No name and ext. # of Manager Of Software Development Comment Unable to meet with patient at this time due to high levels of pain currently uncontrolled by current medication Review Status In Process Next Review Type Continued Stay Review
--- NOTE | 2023-03-27 16:15 | PC.NURSE ---
Addendum entered by Cait Forrest R.N. 03/27/23 18:17: At approximately 1745, pt stated that he would remove his IV, not on accident this time. RN counseled patient on risks of removing IV including bleeding and injury and that removing IV would prevent care team from providing adequate care. RN offered to bring ordered oxycodone to patient around 1800 and patient became argumentative and did not accept RN's offer. Addendum entered by Cait Forrest R.N. 03/27/23 16:41: Earlier in the day, RN counseled patient on not using any home medications/substances per hospital policy. Pt verbalized understanding. Original Note: At approximately 1330, pt removed IV. Provider was notified that IV was removed. 3 RNs tried placing another IV unsuccessfully. ED and DI were called to assist in placing an IV. At 1615, pt was resting comfortably and RN asked pt if RN could perform wound care, and patient refused.
--- NOTE | 2023-03-27 16:25 | P.PN_ITS ---
Subjective Subjective Interval history: 33 M with opiate use disorder (smokes fentanyl daily) admitted with cellulitis and leg ulcers. Severe pain and opiate withdrawal developed today, pulled out IV. Attempting increasing doses of opiates for pain control with benzos for withdrawal. Exam Vital Signs (past 8 hours): - 03/27/23 12:45 03/27/23 13:10 Temperature 98.9 F Pulse Rate 80 80 Respiratory Rate 22 17 Blood Pressure 100/67 100/67 Pulse Oximetry 98 Oxygen Flow Rate 0 Oxygen Delivery Method Room Air Oxygen Flow Rate 0 Const General: cooperative, comfortable and well developed Orientation: alert and oriented x3 HENMT Head: normal to inspection and atraumatic Face and sinus: normal facial exam Mouth: oral mucosae normal and moist mucous membranes Throat: posterior oropharynx normal Eyes General: appearance normal, both eyes and all related structures Pupils: PERRL EOM: EOM intact bilaterally Neck Neck: normal visual inspection and full ROM Chest Chest: normal inspection of the chest Resp Effort & Inspection: normal respiratory effort and able to speak in complete sentences Auscultation: clear to auscultation bilaterally Cardio Palpation: normal PMI Rate: regular rate Rhythm: regular rhythm Heart Sounds: S1 normal and S2 normal GI Inspection: normal to inspection Palpation: soft and no hepatosplenomegaly Auscultation: normal bowel sounds Skin Other: mild left leg erythema and warmth, marked tenderness. please see wound nurse note with pictures of leg wounds. Neuro General: patient alert, patient awake, patient oriented x3 and no focal motor deficits Cognition: normal cognition Motor: muscle tone normal throughout Sensory Exam: no sensory deficits noted Extrem General: full ROM and no calf tenderness Psych Appearance: grossly normal Mental Status: mental status grossly normal Speech and Movement: speech and movement normal Objective Labs 03/26/23 14:44 03/26/23 14:44 [facility] Medical History (Updated 03/26/23 @ 23:36 by Dwight Shelton MD) Abscess of skin or subcutaneous tissue Abscess, gluteal, right Cellulitis and abscess of hand Endocarditis Heroin dependence Homeless Pneumonia Surgical History (Updated 03/26/23 @ 19:43 by Dwight Shelton MD) Tricuspid valve replaced Social History household members: none Smoking Status: Former smoker alcohol intake: current substance use type: heroin Assessment & Plan Assessment & Plan narrative: Cellulitis of lower extremity with leg ulcers - concerning for xylazine ulcerations given history - wound care consulted, recommended dressing changes appreciate consultation - continue antibiotics with ceftraixone and vanco. wound culture with group a strep. Can stop vanco if MRSA swab negative. - pain control difficult with opiate use. ? Opiate dependence and withdrawal - marked tolerance with difficult to control pain and withdrawal today. Smokes fentanyl daily. - continue oral and IV opiates with benzos prn. Monitor for respiratory depression. - narcan if overdose on therapy to control withdrawal. Tricuspid valve replaced - low concern for endocarditis - follow up blood cultures Code: Full Dispo: inpatient, discharge timing likely to home but unclear timing. DVT Lovenox ? Quality VTE Deep Vein Thrombosis/Pulmonary Embolism Present on Admission: No
--- NOTE | 2023-03-27 16:33 | P.CONS_ITS ---
History of Present Illness Consult details Date Patient Seen: 03/27/23 Time Patient Seen: 13:00 Chief complaint: STAPH INF ON LT LEG Reason for consult: Ulcers left lower extremity Narrative: The patient is a 33-year-old male with a history of IV drug use, pulmonary embolus, endocarditis, and tricuspid valve replacement who was admitted March 26, 2023 for evaluation and treatment of cellulitis of the left lower extremity. The patient reports he developed an open wound on the posterior aspect of his left lower extremity about 1 month ago when he was vein grossly washing his leg. For the past several days the patient reports having increased redness and pain as well as the development of some new ulcerations on the anterior aspect of his leg. He also reports having fevers. He presented to the emergency room be evaluated and was subsequently admitted to the hospital for IV antibiotic therapy. A wound consult was ordered for recommendations for treatment of the ulcers on the left lower extremity. Past history is remarkable for multiple skin infections in the past. He denies any history of DVT or vein disorders. Meds Home Medications and Allergies Home Medications Medication Instructions Recorded Confirmed Type No Known Home Medications 03/26/23 03/26/23 History Allergies Allergy/AdvReac Type Severity Reaction Status Date / Time Sulfa (Sulfonamide Allergy Intermediate Verified 08/13/21 14:09 Antibiotics) [SULFA (SULFONAMIDE ANTIBIOTICS)] Review of Systems Review of Systems Narrative: The patient reports severe pain left lower extremity denies having any other recent changes in overall health. Exam Vital Signs (past 8 hours): - 03/27/23 12:45 03/27/23 13:10 Temperature 98.9 F Pulse Rate 80 80 Respiratory Rate 22 17 Blood Pressure 100/67 100/67 Pulse Oximetry 98 Oxygen Flow Rate 0 Oxygen Delivery Method Room Air Oxygen Flow Rate 0 Narrative Exam Narrative: Well-developed well-nourished male who has alert and oriented, agitated and complaining of severe pain of the left lower extremity. HENMT Head: normal to inspection Resp Effort & Inspection: normal respiratory effort Skin Other: Mild erythema left lower extremity, multiple superficial skin ulcers, some necrotic tissue noted on 1 ulcer on the anterior aspect of the left lower extremity, no crepitance or fluctuance, no purulent drainage noted, dorsalis pedis and posterior tibial pulses 3+ Neuro Other: Grossly intact Objective Labs 03/26/23 14:44 03/26/23 14:44 [facility] Medical History Abscess of skin or subcutaneous tissue Abscess, gluteal, right Cellulitis and abscess of hand Endocarditis Heroin dependence Homeless Pneumonia Surgical History Tricuspid valve replaced Social History household members: none Tobacco & Substance Use Smoking Status: Former smoker alcohol intake: current substance use type: heroin Assessment & Plan Assessment and plan (1) Non-pressure chronic ulcer of other part of left foot with fat layer exposed: Status: Acute (2) Cellulitis of lower extremity: Qualifiers: Laterality: left Qualified Code(s): L03.116 - Cellulitis of left lower limb Status: Acute Plan The patient is unable to tolerate any debridement because of his severe pain and tenderness. Recommend daily dressing changes with gentamicin cream which should help with his pain during dressing changes. Elevate left leg, continue IV antibiotic therapy until cellulitis has resolved, follow up at wound center after discharge. Time Spent With Patient Time with patient: 30 to 49 minutes with 50% spent counseling/coordinating care
[2023-03-27 17:18] LABS: MRSA (Nasal) PCR Not Detected (Not Detect)
[2023-03-27] MEDS: GENTAMICIN 0.1% CREAM 30 GM 1 APPLIC TOP (17:45)
[2023-03-27 20:00] VITALS: BP 110/61; PULSE 77; RESP 18; TEMP 36.5; O2SAT 97
[2023-03-27] MEDS: cefTRIAXone 2,000 MG in SODIUM CHLORIDE 0.9% 100 ML 200 MG IV (20:49)
[2023-03-28] MEDS: HYDROMORPHONE 1 MG INJ 2 MG IV (01:30)
[2023-03-28 03:17] LABS: Add Manual Diff / Slide Review NO; Basophils Absolute Auto 0 /uL (0-100); Basophils Percent Auto 0.7 % (0-2); Eosinophils Absolute Auto 100 /uL (0-450); Eosinophils Percent Auto 1.2 % (2-4); Hematocrit 34.3 % (41-53); Hemoglobin 11.9 g/dL (13.5-17.5); Lymphocytes Absolute Auto 2000 /uL (1100-4500); Mean Corpuscular HGB Conc 34.7 % (30-36); Mean Corpuscular Hemoglobin 29.4 PG (26-34); Mean Corpuscular Volume 84.8 fL (80-100); Monocytes Absolute Auto 500 /uL (0-900); Monocytes Percent Auto 7.8 % (3-14); Neutrophils Absolute Auto 4000 /uL (1500-7000); Neutrophils Percent Auto 60.3 % (50-75); Platelet Count 221 X10^3/uL (150-400); Red Blood Cell Count 4.05 X10^6/uL (4.5-5.9); Red Cell Distribution Width 14.7 % (11.6-14.8); White Blood Cell Count 6.6 X10^3/uL (4.5-11.0)
[2023-03-28 03:26] LABS: BUN Creatinine Ratio 18.7 (6-22); Blood Urea Nitrogen 14 mg/dL (9-20); Calcium 8.3 mg/dL (8.4-10.2); Carbon Dioxide 27 mmol/L (22-32); Chloride 100 mmol/L (98-107); Estimated Glomerular Filt Rate > 60 mL/min (>60); Glucose 94 mg/dL (70-100); HEMOLYSIS 37 (0-50); Magnesium 1.6 mg/dL (1.6-2.3); Potassium 3.9 mmol/L (3.4-5.1); Sodium 134 mmol/L (137-145)
[2023-03-28 03:38] LABS: Erythrocyte Sedimentation Rate 32 MM/HR (0-15)
[2023-03-28 03:43] LABS: Vancomycin Trough 17.9 ug/mL (10-20)
[2023-03-28] MEDS: VANCOMYCIN 1,250 MG/250 ML PIGGYBACK 250 MG IV (04:18)
[2023-03-28] MEDS: VANCOMYCIN TROUGH 1 REQUEST MISC (04:18)
[2023-03-28] MEDS: LORazepam 2 MG/ML INJ IV (04:30)
--- NOTE | 2023-03-28 05:25 | PC.NURSE ---
Addendum entered by Bhavesh Terry CNA 03/28/23 06:09: Patient continues to yell out rather then use his call light that he through on the floor. Patient cursing at staff because you guys are not taking good care of me. This MANNEQUIN SANDER AND FINISHER asked the patient to not yell and the staff will be more than happy to do their best to met all of his needs. Patient continued to yell out, this MANNEQUIN SANDER AND FINISHER once asked the patient to please not yell as it was disrupting to the other patients. There should be a note that where patients in the surrounding rooms that were calling to complain about the yelling, patient stated thats not my fing problem, they can wake up this MANNEQUIN SANDER AND FINISHER reminded patient that this is a hospital and that being rude and disrespectful towards staff was not tolerated. Patient did not say anything, this MANNEQUIN SANDER AND FINISHER made sure that call light was within reach and then left the room. Original Note: Patient has been yelling on and off all night. Educated patient that it was inappropriate to be yelling at night when his call light is within reach. Patient would respond with more yelling and then be asked again to please not yell as it is disrupting to the other patients on the floor. Around 0520 patient's IV antibiotics had finshed and the patient started yelling. Once again this MANNEQUIN SANDER AND FINISHER went into the patients room and asked the patient to please not yell as it was around 5 am and other patients were sleeping. Patient did not respond, this MANNEQUIN SANDER AND FINISHER let the patient know that she would inform the RN that the IV was finished and then asked patient that if he needed anything to please use the call light and not yell. Patient yelled F Y. This MANNEQUIN SANDER AND FINISHER made sure that the call light was within reach and that the patient had everything he needed and left the room. Reported to THEO
--- NOTE | 2023-03-28 05:34 | PC.NURSE ---
Pt yelling several times in room, very agitated and anxious. Pt asked when the doctor will come talk to him about pain control and got agitated when I stated that the doctor will round sometime this morning and that there isn't a doctor here during the night to come speak with him. Pt moaning and cussing in room. Ativan given per order. Call light in reach.
--- NOTE | 2023-03-28 06:01 | PC.NURSE ---
Pt yelling at staff stating that the pain medication does not help and that he refuses to take the oxy that is ordered. Reached out to the attending and orders are being placed for pain control.
[2023-03-28] MEDS: fentaNYL 100 MCG/2 ML INJ 50 MCG IV (06:11)
--- NOTE | 2023-03-28 06:56 | PC.NURSE ---
Addendum entered by Wu Koch R.N. 03/28/23 07:08: Notified attending. Original Note: 0644 pt on the call light very agitated and cursing at nurse and [facility]PA[employer] that the pain medication is not working. Nurse reminded patient that 50mcg of fent was given at 0611. Pt got very agitated, screaming and cursing, walked out of room saying he was leaving the hospital, cursing down the hallway. He refused to sign the AMA form and left with midline in LUE. Hospital security called, but patient was already out of the hospital. Charge nurse Yun called 911. Pt in gown, LLE dressing, and LUE midline.
--- NOTE | 2023-03-28 08:20 | CM.DPC ---
DCP Continued: From nursing staff, patient left AMA and refused to sign this morning around 0645. Security was notified. Unable to complete full d/c assessment or offer drug use resources yesterday due to patient being in uncontrollable pain. ABDI Avelar
--- NOTE | 2023-03-28 14:14 | P.DS_ITS ---
History of Present Illness History of Present Illness Date Patient Seen: 03/27/23 Chief complaint: [facility] INF ON LT LEG Narrative: 33-year-old male with history of IV drug abuse and prior skin infections, tricuspid replacement in 2016, endocarditis presents with a chief complaint of worsening left lower extremity pain, swelling, redness and drainage over the past few days.? He states that at least a few weeks ago he was vigorously scrubbing the posterior aspect of his left calf, trying to remove skin when he caused a deep abrasion and subsequently developed some infection which he hoped would clear on its own.? He had been doing well but over the past week or at least few days he is developed multiple other areas of scabbing and drainage with increased pain and swelling.? He has had subjective fever but denies any chills or rigors.? He has no chest pain or shortness of breath.? He is had no nausea or vomiting.? He admits to smoking fentanyl for the last 2 months, but has not had any IV drug abuse and some time. In the ER the patient was gien ceftriaxonev, vancomycin and was decided to be admitted for further management. Discharge Providers Provider Date of admission: 03/26/23 16:25 Discharge Date: 03/28/23 Consults: 03/27/23 10:58 Consult to Wound Care Urgent Comment: possible xylazine wound on LLE Consulting Provider: [facility] Discharge provider: Santiago Cruz DO Summary Hospital Course Discharge Diagnosis: Cellulitis of lower extremity with leg ulcers ? Opiate dependence and withdrawal history of Tricuspid valve replacement Hospital Course: This is a 33 year old male admitted with lower extremity and stage II leg ulcerations. He continued to have difficulties with pain control and withdrawal symptoms given his history of fentanyl use. Skin ulcerations were concerning for xylazine induced cause and vasoconstriction. He was assessed by wound care, whom recommended dressing changes daily and continued antibiotics, but no debridement at this time given his pain. Cultures were positive with group A strep. With multiple doses of opiates, and benzos his withdrawal remained difficult to control. Early in the morning on 03/28, the patient left against medical advice while overnight telehospitalist was on duty, but he left before he could be seen or an appropriate pharmacy could be selected for outpatient antibiotics and dressing care. Security was notified as patient still had an IV in place. Time Spent with Patient Time spent: Less than 30 minutes Exam Vital Signs (past 8 hours): Oxygen Delivery Method Room Air Oxygen Flow Rate 0 Narrative Exam Narrative: Patient left AMA prior to being evaluated Objective Labs 03/28/23 03:05 03/28/23 03:05 Labs: Laboratory Results - last 24 hr 03/27/23 03/28/23 03/28/23 15:41 03:05 03:05 WBC 6.6 RBC 4.05 L Hgb 11.9 L Hct 34.3 L MCV 84.8 MCH 29.4 MCHC 34.7 RDW 14.7 Plt Count 221 Neut % (Auto) 60.3 Lymph % (Auto) 30.0 [place] % (Auto) 7.8 Eos % (Auto) 1.2 L Baso % (Auto) 0.7 Neut # (Auto) 4000 Lymph # (Auto) 2000 [place] # (Auto) 500 Eos # (Auto) 100 Baso # (Auto) 0 ESR Sodium Potassium Chloride Carbon Dioxide BUN Creatinine Estimated GFR BUN/Creatinine Ratio Glucose Calcium Magnesium C-Reactive Protein Nasal Screen MRSA (PCR) Not detected Vancomycin Trough 17.9 03/28/23 03/28/23 03/28/23 03:05 03:05 03:05 WBC RBC Hgb Hct MCV MCH MCHC RDW Plt Count Neut % (Auto) Lymph % (Auto) [place] % (Auto) Eos % (Auto) Baso % (Auto) Neut # (Auto) Lymph # (Auto) [place] # (Auto) Eos # (Auto) Baso # (Auto) ESR 32 H Sodium 134 L Potassium 3.9 Chloride 100 Carbon Dioxide 27 BUN 14 Creatinine 0.75 Estimated GFR > 60 BUN/Creatinine Ratio 18.7 Glucose 94 Calcium 8.3 L Magnesium 1.6 C-Reactive Protein 5.0 H Nasal Screen MRSA (PCR) Vancomycin Trough [facility] Medical History Abscess of skin or subcutaneous tissue Abscess, gluteal, right Cellulitis and abscess of hand Endocarditis Heroin dependence Homeless Pneumonia Surgical History Tricuspid valve replaced Social History household members: none Smoking Status: Former smoker alcohol intake: current substance use type: heroin Discharge Plan Discharge Plan Patient Disposition: Left Against Medical Advice Nursing Discharge Comment: Pt refused to sign AMA form. Left with L midline in arm. Discharge orders & Medications Prescriptions: No Action No Known Home Medications Visit Report/Discharge Packet Stand Alone Forms: Patient Portal/API, Stroke Signs & Symptoms Discharges patient from system. Discharge Date/Time: 03/28/23 06:44 Quality VTE Deep Vein Thrombosis/Pulmonary Embolism Present on Admission: No
== END 2023-03-28 06:44 | disposition left against medical advice (07) | DRG 383 ==
LOC: ED 16:21 → AC 16:41
PROVIDERS: Internal Medicine; Admitting Provider Neuromusculoskeletal Medicine, Sports Medicine; Emergency Provider Emergency Medicine; Referring Provider Emergency Medicine; Visit Provider Neuromusculoskeletal Medicine, Sports Medicine
DX: L03.116 Cellulitis of left lower limb (principal); L97.222 Non-pressure chronic ulcer of left calf with fat layer exposed; F11.23 Opioid dependence with withdrawal; B95.0 Streptococcus, group A, as the cause of diseases classified elsewhere; Z53.29 Procedure and treatment not carried out because of patient's decision for other reasons; Z95.2 Presence of prosthetic heart valve
CPT/HCPCS: 36415; 71045; 73701; 80048; 80053; 80202; 81001; 83605; 83690; 83735; 84145; 85025; 85610; 85651; 85730; 86140; 87040; 87070; 87075; 87077; 87086; 87147; 87205; 87797; 93005; 93010; 96365; 96375; 99232; 99285; G0378; J0696; J1170; J1200; J2060; J2405; J3010

== ENCOUNTER 2023-03-28 17:05 | Emergency (ER) | payer OTHER, MEDICAID, SELFPAY ==
[2023-03-26 16:34] VITALS: BMI 28.4
[2023-03-28 17:12] VITALS: BP 124/67; PULSE 116; RESP 18; TEMP 36.9; O2SAT 97; BMI 28.3
--- NOTE | 2023-03-28 17:15 | PC.NURSE ---
IV not started in triage d/t pt leaving AMA with a midline in earlier today.
--- NOTE | 2023-03-28 17:49 | PC.NURSE ---
Pt comes to triage stating that he left from inpatient care this morning because There was a new nurse up there and no one knew what they were doing and they weren't giving me any pain medications that were working. Pt left with a midline in place. Both arms inspected and no midline was there, pt states he took it out himself. Pt repeatedly asked how long he is going to have to be here. I informed pt that there were no beds available in the ER at this time but we are going to get him back and be evaluated as soon as we can. Soon after pt was put back out into the lobby he called back and asked if our MD could just prescribe him a PO antibiotic so he could leave. He was again told that he would have to wait to be evaluated by the ER MD. He then asked if Dr. Lake was working. He was told he was not. Pt then said can you call him at home? He's cool, I'm sure he would write me a prescription. Pt was told that would not happen and he had to wait. Pt states that he would try to wait a little longer but wouldn't wait long.
== END 2023-03-28 23:45 | disposition left against medical advice (07) ==
PROVIDERS: Emergency Provider Emergency Medicine
CPT/HCPCS: 99281

== ENCOUNTER 2023-03-29 08:45 | Emergency (ER) | payer OTHER, MEDICAID, SELFPAY ==
[2023-03-26 16:34] VITALS: BMI 28.4
[2023-03-29 08:48] VITALS: BP 119/87; PULSE 90; RESP 24; TEMP 36.5; O2SAT 100; BMI 28.3
--- NOTE | 2023-03-29 09:08 | ED_ITS ---
HPI - Recheck/Abnormal Lab/Rx General Chief Complaint: Recheck/Abnormal Lab/Rx Stated Complaint: was admitted T-2 left AMA needs to be seen Time Seen by Provider: 03/29/23 08:47 Source: patient Mode of arrival: Ambulatory History of Present Illness HPI narrative: Patient is a 33-year-old male. Has a significant medical history to include IV drug abuse and history of endocarditis. He was seen here in the emergency department a couple days ago for wounds on his left lower extremity. He was admitted to the hospital for IV antibiotics but shortly after being admitted he did leave against medical advice. He did have his left midline in place when he left. He was not discharged with any antibiotics. He states that after he left he did use of fentanyl. He removed the midline on his own. He returns to the emergency department today to ?continue his treatment? he denies any fevers. Denies worsening symptoms. Does have quite a bit of discomfort in his left leg. Related Data Previous Rx's Medication Instructions Recorded cephalexin 500 mg capsule 500 mg PO QID 7 days #28 caps 03/29/23 Allergies Allergy/AdvReac Type Severity Reaction Status Date / Time Sulfa (Sulfonamide Allergy Intermediate Verified 03/28/23 17:18 Antibiotics) [SULFA (SULFONAMIDE ANTIBIOTICS)] Review of Systems Constitutional Constitutional: Reports system reviewed and no additional complaints, except as documented Musculoskeletal Musculoskeletal: Reports system reviewed and no additional complaints, except as documented Integumentary/Breasts Skin/Breast: Reports system reviewed and no additional complaints, except as documented Neurologic Neurologic: Reports system reviewed and no additional complaints, except as documented Patient History Medical History Abscess of skin or subcutaneous tissue Abscess, gluteal, right Cellulitis and abscess of hand Endocarditis Heroin dependence Homeless Pneumonia Surgical History Tricuspid valve replaced Social History household members: none Smoking Status: Former smoker alcohol intake: current substance use type: heroin Smoking Status: Former smoker tobacco type: vaping alcohol intake frequency: 0-2 drinks per day Substance Use Type: marijuana and opiates Exam Initial Vital Signs Initial Vital Signs: Vital Signs Pulse Rate 90 03/29/23 08:48 Respiratory Rate 24 03/29/23 08:48 Blood Pressure 119/87 03/29/23 08:48 Pulse Oximetry 100 03/29/23 08:48 Oxygen Delivery Method Room Air 03/29/23 08:48 HENMA Head: normal to inspection Resp Effort & Inspection: normal respiratory effort Cardio Rate: regular rate Skin Other: Patient does have multiple ulcerations to his left lower extremities specifically in the mid tibia region. These are both anterior and posterior. There is some surrounding erythema. There is no crepitus. No active drainage. Extrem Other: Mild swelling of the left lower extremity from the knee distal. Course Orders Ordered: Discontinued Medications Doxycycline Hyclate (Doxycycline Hyclate 100 Mg Tablet) 100 mg PO NOW ONE Stop: 03/29/23 09:12 Vital Signs Vital signs: Vital Signs - 8 hr 03/29/23 08:48 Pulse Rate 90 Respiratory Rate 24 Blood Pressure 119/87 Pulse Oximetry 100 Oxygen Delivery Method Room Air MDM - Recheck/Abnormal Lab/Rx MDM Narrative Medical decision making narrative: Patient is nontoxic appearing. Has not tachycardic and is not febrile. He does have ulcerations to his left lower extremity was some mild surrounding erythema. I have low suspicion for deep abscess in the patient stated that he had a CT scan performed but he was here a couple days ago that did not show any abscess. Had a long discussion with him regarding his options to include being admitted to the hospital and continuing with IV antibiotics and wound care versus discharged home with oral antibiotics. I feel that we are going to have very difficult time controlling his pain because of his fentanyl use and I discuss this with him as well. Informed him that being admitted to the hospital he most likely is going to have issues with pain control but he would be here until we are sure that his lower extremity wounds are not worsening. We discussed the other option to include being discharged home with oral antibiotics and returning if his symptoms worsen. After this discussion the patient opted to be discharged home. Review of his cultures show that he has a strep a infection. It is considered a susceptible to penicillins and cephalosporins we will place him on Keflex. He was given return precautions. He expressed understanding and agreement. Discharge Plan Departure Patient Disposition: Home Clinical Impression: Skin ulcer, Cellulitis of lower extremity Instructions: Cellulitis Activity Restrictions/Additional Instructions: A prescription for antibiotics was sent to [facility] per your request. Please start taking them as directed. Is also important that you change the bandages on the wounds on your legs frequently and keep them clean. Return to the emergency department if the redness starts to worsen or you start to have fevers or any other new symptoms. Prescriptions: New cephalexin 500 mg capsule 500 mg PO QID 7 Days Qty: 28 0RF Referrals: Miscellaneous,Doctor, MD [Primary Care Provider] - Stand Alone Forms: Patient Portal/API
--- NOTE | 2023-03-29 09:10 | PC.NURSE ---
mid line Patient states when he left 2 days ago he realized his IV was still in but it was shelter out, so he pulled it all the way out. states there was no bleeding during this event.
[2023-03-29] MEDS: DOXYCYCLINE HYCLATE 100 MG TABLET PO (09:44)
== END 2023-03-29 09:48 | disposition home or self-care (01) ==
PROVIDERS: Emergency Provider Emergency Medicine
DX: L03.116 Cellulitis of left lower limb (principal); L97.929 Non-pressure chronic ulcer of unspecified part of left lower leg with unspecified severity
CPT/HCPCS: 99283

== ENCOUNTER 2023-07-02 23:57 | Emergency (ER) | payer OTHER, MEDICAID, SELFPAY ==
[2023-03-26 16:34] VITALS: BMI 28.4
[2023-07-02 23:59] VITALS: BP 142/88; PULSE 95; RESP 18; TEMP 36.1; O2SAT 100; BMI 29.2
--- NOTE | 2023-07-03 00:20 | ED.WOUNDLAC ---
HPI - Wound/Laceration General Chief Complaint: Wound/Laceration Stated Complaint: wound on left leg infected Time Seen by Provider: 07/03/23 00:20 Source: patient Mode of arrival: Ambulatory History of Present Illness HPI narrative: Patient is a 33-year-old male history of IV drug abuse and history of endocarditis presenting today with wound on left leg. He reports it has been there for awhile it is not really draining not healing. He reports that he has been unable to elevate his legs he is in the process of moving he has not slept in his bed. He frequently has been falling asleep with his legs down in a sitting position. He denies any fever chills no chest pain or shortness of breath. He is not on a diuretic. He does not feel like he needs when he just needs to sleep with his legs elevated. He previously has been admitted for cellulitis back in March of 2023. The time he left Against Medical Advice ultimately returned back to the ED and given a prescription for cephalexin. Patient reports that he has previously grown strep. This time he is afebrile not tachycardic or hypotensive and vitals are stable. Related Data Previous Rx's Medication Instructions Recorded cephalexin 500 mg capsule 500 mg PO TID #21 caps 07/03/23 Allergies Allergy/AdvReac Type Severity Reaction Status Date / Time Sulfa (Sulfonamide Allergy Intermediate Verified 07/02/23 23:59 Antibiotics) [SULFA (SULFONAMIDE ANTIBIOTICS)] Patient History Medical History Abscess of skin or subcutaneous tissue Abscess, gluteal, right Cellulitis and abscess of hand Endocarditis Heroin dependence Homeless Pneumonia Surgical History Tricuspid valve replaced Social History household members: none Smoking Status: Former smoker alcohol intake: current substance use type: heroin Smoking Status: Former smoker tobacco type: vaping alcohol intake frequency: 0-2 drinks per day Substance Use Type: marijuana and opiates Exam Initial Vital Signs Initial Vital Signs: Vital Signs Temperature 97 F L 07/02/23 23:59 Pulse Rate 95 H 07/02/23 23:59 Respiratory Rate 18 07/02/23 23:59 Blood Pressure 142/88 H 07/02/23 23:59 Pulse Oximetry 100 07/02/23 23:59 Oxygen Delivery Method Room Air 07/02/23 23:59 GENERAL: Patient 33-year-old male overall appears well, appears to have chronic drug use and in no acute distress. HEENT: Head atraumatic,EOMI, pupils reactive, face symmetric, moist mucous membranes CARDIOVASCULAR: Regular rate and rhythm without murmurs, rubs or gallops. RESPIRATORY: Breath sounds equal bilaterally, no wheezes rales or rhonchi. EXTREMITIES: Normal range of motion, no clubbing or edema. Neurovascularly intact NEUROLOGICAL: Alert and oriented x4.Normal gait and speech. SKIN: Lower extremities erythematous blanchable left leg posterior calf has a 3 cm x 3 cm chronic nonhealing wound without gross drainage surrounding pain. Course Orders Ordered: Discontinued Medications Cefazolin Sodium (Cephalexin 250 Mg Cap Prepack) 1 bottle MISC SEEINSTR ONE Stop: 07/03/23 00:36 Last Admin: 07/03/23 00:43 Dose: 1 bottle Documented By: DIPESH Vital Signs Vital signs: Vital Signs - 8 hr 07/02/23 23:59 Temperature 97 F L Pulse Rate 95 H Respiratory Rate 18 Blood Pressure 142/88 H Pulse Oximetry 100 Oxygen Delivery Method Room Air MDM - Wound/Laceration MDM Narrative Medical decision making narrative: Patient 33-year-old male who has chronic wounds on lower extremities the 1 on the left measures 3 x 3 it is not actively draining there is nothing to culture it. He is afebrile he does not appear acutely or toxically. At this time no need for blood work or further evaluation. Discharge Plan Departure Patient Disposition: Home Clinical Impression: Cellulitis of lower extremity Instructions: DI for Cellulitis -- Adult Activity Restrictions/Additional Instructions: *You have been diagnosed with cellulitis *What to do: At this time elevate your legs as often as possible. Please continue to monitor your wound. Bandage can stay on for a couple days and is water proof. *Continue to take medications as directed Keflex 500 mg 3 times a day for 7 days [facility] *Follow up with your primary care provider in 2-3 days or call [phone] *Return to ER if you should have fever chills chest pain shortness of breath or any new, worsening or concerning symptoms Prescriptions: New cephalexin 500 mg capsule 500 mg PO TID Qty: 21 0RF Referrals: Miscellaneous,Doctor, MD [Primary Care Provider] - Stand Alone Forms: Patient Portal/API
[2023-07-03] MEDS: cephALEXin 250 MG CAP PREPACK 1 BOTTLE MISC (00:43)
== END 2023-07-03 00:48 | disposition home or self-care (01) ==
PROVIDERS: Emergency Provider Emergency Medicine
DX: L03.116 Cellulitis of left lower limb (principal)
CPT/HCPCS: 99281; 99283

== ENCOUNTER 2023-10-17 09:17 | Emergency (ER) | payer OTHER, MEDICAID, SELFPAY ==
[2023-03-26 16:34] VITALS: BMI 28.4
[2023-10-17 09:35] VITALS: BP 136/73; PULSE 96; RESP 15; TEMP 36.6; O2SAT 100; BMI 29.2
--- NOTE | 2023-10-17 11:22 | PC.NURSE ---
attempted to locate pt in lobby,he was not out there. I called his phone on file,no answer and no voicemail.
== END 2023-10-17 11:54 | disposition left against medical advice (07) ==
PROVIDERS: Emergency Provider Emergency Medicine
DX: S89.92XA Unspecified injury of left lower leg, initial encounter (principal); X58.XXXA Exposure to other specified factors, initial encounter
CPT/HCPCS: 99281

== ENCOUNTER 2023-12-21 13:14 | Inpatient (IN) | payer OTHER, MEDICAID, SELFPAY ==
[2023-03-26 16:34] VITALS: BMI 28.4
[2023-12-21] VITALS (8 sets, daily range): BP systolic 102–134; BP diastolic 62–72; PULSE 79–95; RESP 15–18; TEMP 36.7–37.4; O2SAT 95–100; BMI 29.9; BMI 30.1
--- NOTE | 2023-12-21 13:40 | ED.SKABFB ---
HPI - Skin/Abscess/Foreign Bdy General Chief complaint: Skin/Abscess/Foreign Body Stated complaint: poss infection on L leg Time Seen by Provider: 12/21/23 13:33 Source: patient and family Mode of arrival: Wheelchair History of Present Illness HPI narrative: Patient is a 33-year-old male. Does have history heroin dependence. Also has had a tricuspid valve replacement who is here for evaluation of feeling feverish at home. He states that a couple days ago he was having body aches. He also has a chronic ulceration on the back of his left leg with some surrounding erythema to the skin but is now having redness to his right lower extremity. Is circumferential around his right castellon it does extend down to his right foot to include the lateral aspect of the right foot and also streaking up to his right knee. It is painful for him to walk. He denies any new trauma. Related Data Previous Rx's Medication Instructions Recorded cephalexin 500 mg capsule 500 mg PO TID #21 caps 07/03/23 Allergies Allergy/AdvReac Type Severity Reaction Status Date / Time Sulfa (Sulfonamide Allergy Intermediate Verified 12/21/23 13:29 Antibiotics) [SULFA (SULFONAMIDE ANTIBIOTICS)] Review of Systems Constitutional Constitutional: Reports system reviewed and no additional complaints, except as documented Musculoskeletal Musculoskeletal: Reports system reviewed and no additional complaints, except as documented Integumentary/Breasts Skin/Breast: Reports system reviewed and no additional complaints, except as documented Patient History Medical History Abscess, gluteal, right Abscess of skin or subcutaneous tissue Homeless Heroin dependence Pneumonia Cellulitis and abscess of hand Endocarditis Surgical History Tricuspid valve replaced Social History household members: none Smoking Status: Former smoker alcohol intake: current substance use type: heroin Smoking Status: Former smoker tobacco type: vaping alcohol intake frequency: holidays/special occasions only Substance Use Type: opiates and other Exam Initial Vital Signs Initial Vital Signs: Vital Signs Temperature 99.3 F 12/21/23 13:22 Pulse Rate 95 H 12/21/23 13:22 Respiratory Rate 16 12/21/23 13:22 Blood Pressure 125/62 12/21/23 13:22 Pulse Oximetry 100 12/21/23 13:22 Oxygen Delivery Method Room Air 12/21/23 13:22 [facility] Head: normal to inspection and normocephalic Skin Other: See extremity Neuro General: patient alert, patient awake, patient oriented x3 and moves all extremities Sensory Exam: no sensory deficits noted Extrem Other: 3 cm round ulceration posterior lateral aspect of the left calf muscle. Some surrounding erythema but no drainage. No warmth to this area. Patient does have circumferential redness to the distal 1/3 of the right castellon and calf. There is streaking that goes from the lateral aspect of his right foot up to this area there is streaking with redness up to his right knee. Tender to palpation. No vesicles/pustules noted. Course Orders Ordered: ED Orders 12/21/23 13:41 Urinalysis and Microscopic Stat Urine Culture Stat Urine Drug Screen, Rapid Stat 12/21/23 14:20 C-Reactive Protein Quant Stat Complete Blood Count AUTO DIFF Stat Comprehensive Metabolic Panel Stat Erythrocyte Sedimentation Rate Stat Ethanol (ETOH) Stat Lactate (Lactic Acid) Stat Lipase Stat Procalcitonin Stat 12/21/23 14:54 Blood Culture Stat Acetaminophen (Acetaminophen 325 Mg Tablet) 650 mg PO Q6H PRN PRN Reason: Fever/Mild Pain (1-3) Calcium Carbonate (Calcium Carbonate 500 Mg Tab) 1,000 mg PO Q4HR PRN PRN Reason: Dyspepsia Sodium Chloride (Normal Saline 0.9%) 1,000 mls @ 125 mls/hr IV CONT WEST Last Admin: 12/21/23 14:30 Dose: 125 mls/hr Documented By: MPO Ceftriaxone Sodium 1,000 mg/ (Sodium Chloride) 100 mls @ 200 mls/hr IV Q24H WEST Ibuprofen (Ibuprofen 600 Mg Tablet) 600 mg PO Q6H PRN PRN Reason: Fever/Mild Pain (1-3) Naloxone HCl (Naloxone 0.4 Mg/Ml Vial) 0.2 mg IV Q2MIN PRN PRN Reason: Opiate Reversal Oxycodone HCl (Oxycodone Ir 5 Mg Tablet) 5 mg PO Q3H PRN PRN Reason: Pain, Moderate (4-6) Vancomycin HCl (Vancomycin Per Pharmacy) 1 request MISC NOW PRN PRN Reason: cellulitis Discontinued Medications Vancomycin HCl (Vancomycin) 1,000 mg in 200 mls @ 200 mls/hr IV NOW ONE Stop: 12/21/23 14:39 Ceftriaxone Sodium 1,000 mg/ (Sodium Chloride) 100 mls @ 200 mls/hr IV NOW ONE Stop: 12/21/23 13:41 Last Admin: 12/21/23 14:58 Dose: 200 mls/hr Documented By: KYLAH Ketorolac Tromethamine (Ketorolac 30 Mg/Ml Vial) 30 mg IV NOW ONE Stop: 12/21/23 14:33 Vital Signs Vital signs: Vital Signs - 8 hr 12/21/23 13:22 12/21/23 14:13 12/21/23 14:30 Temperature 99.3 F Pulse Rate 95 H 82 81 Respiratory Rate 16 15 Blood Pressure 125/62 Pulse Oximetry 100 100 Oxygen Delivery Method Room Air MDM - Skin/Abscess/Foreign Bdy Lab Data Attestation: I reviewed the patient's lab results. 12/21/23 14:20 12/21/23 14:20 Labs: Lab Results 12/21/23 Range/Units 14:20 WBC 8.5 (4.5-11.0) X10^3/uL RBC 4.28 L (4.5-5.9) X10^6/uL Hgb 12.4 L (13.5-17.5) g/dL Hct 36.4 L (41-53) % MCV 85.1 (80-100) fL MCH 28.9 (26-34) PG MCHC 34.0 (30-36) % RDW 14.9 H (11.6-14.8) % Plt Count 201 (150-400) X10^3/uL Neut % (Auto) 65.7 (50-75) % Lymph % (Auto) 22.8 L (25-40) % [place] % (Auto) 11.2 (3-14) % Eos % (Auto) 0.1 L (2-4) % Baso % (Auto) 0.2 (0-2) % Neut # (Auto) 5600 (6895-3416) /uL Lymph # (Auto) 1900 (8360-2278) /uL [place] # (Auto) 1000 H (0-900) /uL Eos # (Auto) 0 (0-450) /uL Baso # (Auto) 0 (0-100) /uL ESR 65 H (0-15) MM/HR Sodium 133 L (137-145) mmol/L Potassium 3.3 L (3.4-5.1) mmol/L Chloride 98 (98-107) mmol/L Carbon Dioxide 27 (22-32) mmol/L BUN 16 (9-20) mg/dL Creatinine 0.88 (0.66-1.25) mg/dL Estimated GFR > 60 (>60) mL/min BUN/Creatinine Ratio 18.2 (6-22) Glucose 116 H (70-100) mg/dL Lactate 1.2 (0.7-2.1) mmol/L Calcium 8.8 (8.4-10.2) mg/dL Total Bilirubin 1.0 (0.2-1.3) mg/dL AST 44 (17-59) IU/L ALT 29 (<50) IU/L Alkaline Phosphatase 128 H (38-126) U/L Total Protein 8.3 H (6.3-8.2) g/dL Albumin 4.1 (3.5-5.0) g/dL Globulin 4.2 H (1.7-4.1) g/dL Albumin/Globulin Ratio 1.0 (1.0-2.8) Lipase 27 (23-300) U/L Ethyl Alcohol < 10 ( - 10) mg/dL MDM Narrative Medical decision making narrative: Left leg has chronic ulcerations but does not appear to be an acute cellulitic change to this area. He does have findings that are consistent with cellulitis to his right lower extremity that extends from his toes up to his knees. Also sounds like he had rigors a couple days ago with what he describes of not feeling well. Does not have a leukocytosis. Was given IV antibiotics. Cultures were obtained. Lactate is unremarkable. Discussed the case with Dr. Liang hospitalist on-call. [place] the patient would benefit from a period of IV antibiotics given the extent of the cellulitis to his right leg. Patient expressed understanding and agreement with this plan. Discharge Plan Departure Patient Disposition: Home Clinical Impression: Cellulitis of lower extremity
[2023-12-21] MEDS: SODIUM CHLORIDE 0.9% 1,000 ML 125 ML IV (14:30)
[2023-12-21 14:36] LABS: Add Manual Diff / Slide Review NO; Basophils Absolute Auto 0 /uL (0-100); Basophils Percent Auto 0.2 % (0-2); Eosinophils Absolute Auto 0 /uL (0-450); Eosinophils Percent Auto 0.1 % (2-4); Hematocrit 36.4 % (41-53); Hemoglobin 12.4 g/dL (13.5-17.5); Lymphocytes Absolute Auto 1900 /uL (1100-4500); Lymphocytes Percent Auto 22.8 % (25-40); Mean Corpuscular Hemoglobin 28.9 PG (26-34); Mean Corpuscular Volume 85.1 fL (80-100); Monocytes Absolute Auto 1000 /uL (0-900); Monocytes Percent Auto 11.2 % (3-14); Neutrophils Absolute Auto 5600 /uL (1500-7000); Neutrophils Percent Auto 65.7 % (50-75); Platelet Count 201 X10^3/uL (150-400); Red Blood Cell Count 4.28 X10^6/uL (4.5-5.9); Red Cell Distribution Width 14.9 % (11.6-14.8); White Blood Cell Count 8.5 X10^3/uL (4.5-11.0)
[2023-12-21 14:47] LABS: Lactate (Lactic Acid) 1.2 mmol/L (0.7-2.1)
[2023-12-21 14:51] LABS: Alanine Aminotransferase 29 IU/L (<50); Albumin 4.1 g/dL (3.5-5.0); Alkaline Phosphatase 128 U/L (38-126); Aspartate Aminotransferase 44 IU/L (17-59); BUN Creatinine Ratio 18.2 (6-22); Blood Urea Nitrogen 16 mg/dL (9-20); Calcium 8.8 mg/dL (8.4-10.2); Carbon Dioxide 27 mmol/L (22-32); Chloride 98 mmol/L (98-107); Estimated Glomerular Filt Rate > 60 mL/min (>60); Ethanol (ETOH) < 10 mg/dL; Globulin 4.2 g/dL (1.7-4.1); Glucose 116 mg/dL (70-100); HEMOLYSIS < 15 (0-50); Lipase 27 U/L (23-300); Potassium 3.3 mmol/L (3.4-5.1); Sodium 133 mmol/L (137-145); Total Protein 8.3 g/dL (6.3-8.2)
[2023-12-21 14:54] LABS: Erythrocyte Sedimentation Rate 65 MM/HR (0-15)
[2023-12-21] MEDS: cefTRIAXone 1,000 MG in SODIUM CHLORIDE 0.9% 100 ML 200 MG IV (14:58)
--- NOTE | 2023-12-21 14:58 | PM.HP.1 ---
History of Present Illness History of Present Illness Date Patient Seen: 12/21/23 Chief complaint: poss infection on L leg Narrative: The patient is a 33-year-old male with a history of heroin dependence and a previous tricuspid valve replacement due to endocarditis. He presents now with fevers and rigors for 2 days as well as a right lower extremity which is red and hot. He denies any trauma. He notes that the redness has extended in total area. He is having some difficulty weight-bearing. In speaking to him further, he notes ongoing use of fentanyl which he smokes. He denies recent IV drug use. He also notes he has had a chronic wound over the posterior aspect of his left lower leg and a newer abrasion over the right lower leg in the anterior region. He denies any obvious new trauma. He has felt ill and had increased redness over the last several days of the right lower leg which prompted him presenting today. He does smoke fentanyl twice a day and is concerned about pain control and withdrawal symptoms. He last used several hours prior to presentation. [facility] Medical History Abscess, gluteal, right Abscess of skin or subcutaneous tissue Homeless Heroin dependence Pneumonia Cellulitis and abscess of hand Endocarditis Surgical History Tricuspid valve replaced Social History household members: none Smoking Status: Former smoker alcohol intake: current substance use type: heroin Meds Home Medications and Allergies Home Medications Medication Instructions Recorded Confirmed Type No Known Home Medications 12/21/23 12/21/23 History Allergies Allergy/AdvReac Type Severity Reaction Status Date / Time Sulfa (Sulfonamide Allergy Intermediate Verified 12/21/23 13:29 Antibiotics) [SULFA (SULFONAMIDE ANTIBIOTICS)] Review of Systems Review of Systems Narrative: All else reviewed and otherwise unremarkable except as noted in the history and physical. Exam Vital Signs (past 8 hours): - 12/21/23 13:22 Temperature 99.3 F Pulse Rate 95 H Respiratory Rate 16 Blood Pressure 125/62 Pulse Oximetry 100 Oxygen Delivery Method Room Air Oxygen Delivery Method Room Air Narrative Exam Narrative: NAD, alert and oriented, fluent speech, calm. Normocephalic skull, EOMI, anicteric sclera, symmetric pupils. Oropharynx unremarkable, no droop. Neck supple, midline trachea, no adenopathy. Lungs clear, normal rate and effort. Heart regular, no murmur gallop or rub. Abdomen is soft, non distended and non tender. Extremities are free of edema. Skin is free of rash or lesions. Joints are not swollen or deformed. Judgment appears to be normal. Objective Labs 12/21/23 14:20 12/21/23 14:20 Labs: Laboratory Results - last 24 hr 12/21/23 14:20 WBC 8.5 RBC 4.28 L Hgb 12.4 L Hct 36.4 L MCV 85.1 MCH 28.9 MCHC 34.0 RDW 14.9 H Plt Count 201 Neut % (Auto) 65.7 Lymph % (Auto) 22.8 L [place] % (Auto) 11.2 Eos % (Auto) 0.1 L Baso % (Auto) 0.2 Neut # (Auto) 5600 Lymph # (Auto) 1900 [place] # (Auto) 1000 H Eos # (Auto) 0 Baso # (Auto) 0 ESR 65 H Sodium 133 L Potassium 3.3 L Chloride 98 Carbon Dioxide 27 BUN 16 Creatinine 0.88 Estimated GFR > 60 BUN/Creatinine Ratio 18.2 Glucose 116 H Lactate 1.2 Calcium 8.8 Total Bilirubin 1.0 AST 44 ALT 29 Alkaline Phosphatase 128 H Total Protein 8.3 H Albumin 4.1 Globulin 4.2 H Albumin/Globulin Ratio 1.0 Lipase 27 Ethyl Alcohol < 10 Assessment & Plan Assessment & Plan narrative: 1. Right leg cellulitis, present on admission and active. 2. Concern for possible bacteremia, present on admission and active. 3. Heroin dependence, present on admission and active. 4. IVDU, present on admission and active. 5. Previous tricuspid valve repair, stable. PLAN: -IV antibiotics, initially ceftriaxone vancomycin. -blood cultures to rule out bacteremia. -MRSA screen of the nares. -elevate leg. -methadone 10 t.i.d.. He is full resuscitation. Time Spent With Patient Time with patient: 30 to 49 minutes with 50% spent counseling/coordinating care Quality MIPS - Admit The patient?s Advance Care plan is not present because I confirmed today that the patient does not wish or was not able to name a surrogate decision maker or provide an Advance Care Plan.: Yes MIPS - Meds 'Current medications' to include all prescriptions, [id number] products, herbals, cannabis/cannabidiol products, and vitamin/mineral/dietary (nutritional) supplements. I have utilized all available resources to obtain, update, or review the patient?s current medications. [If Yes, STOP here]: Yes
[2023-12-21 15:04] LABS: Procalcitonin 0.59 ng/mL (<0.5)
[2023-12-21 15:14] LABS: C-Reactive Protein Quant 34.6 mg/dL (<1.0)
[2023-12-21] MEDS: VANCOMYCIN 1,000 MG/200 ML PIGGYBACK 200 MG IV (15:38)
[2023-12-21] MEDS: METHADONE 10 MG TABLET PO ×2 (18:21→20:56)
[2023-12-21 18:35] LABS: Appearance Urine UA CLEAR; Bilirubin Urine UA 1+ (NEGATIVE); Color Urine UA YELLOW; Glucose Urine UA NEGATIVE (Negative); Ketones Urine UA TRACE (NEGATIVE); Leukocyte Esterase Urine UA NEGATIVE (NEGATIVE); Nitrite Urine UA NEGATIVE (Negative); Occult Blood Urine UA 1+ (Negative); Protein Urine UA 2+ (Negative)
[2023-12-21 18:38] LABS: Ur Creatinine Normal (Normal); Ur Specific Gravity Normal (Normal); Urine Tetrahydrocannabinol Negative (Negative); Urine pH Normal (Normal)
[2023-12-21 18:39] LABS: UR Morphine/Opiate cutoff 300 Negative (Negative); Urine Amphetamines Positive (Negative); Urine Barbiturates Negative (Negative); Urine Benzodiazepines Negative (Negative); Urine Cocaine Negative (Negative); Urine MDMA Negative (Negative); Urine Methadone Negative (Negative); Urine Methamphetamines Positive (Negative); Urine Oxycodone Negative (Negative); Urine Phencyclidine Negative (Negative); Urine Tricyclic Antidepressant Negative (Negative)
[2023-12-21 18:42] LABS: Bacteria Urine Occasional (0-1); Culture Indicated Urine Cult Not Indicated; Hyaline Casts Urine 0-1/LPF; Ictotest Urine Positive (Negative); Mucus Urine 1+ (Negative); RBC Urine 0-1/HPF (0-5/HPF); Squamous Epithelial Cell Urine 1-5 /HPF (0-5/HPF); Urine Volume 10mL (spun); WBC Urine 1-5/HPF (0-5/HPF)
--- NOTE | 2023-12-21 19:05 | PC.NURSE ---
Pt stated to this RN that pt smoked Fentanyl this morning and states that he does it daily.
--- NOTE | 2023-12-21 20:30 | PC.NURSE ---
Addendum entered by Lyric Wright R.N. 12/21/23 20:30: wound core photos Original Note: wound care photos
[2023-12-22] MEDS: OXYCODONE IR 5 MG TABLET PO ×2 (01:05→05:46)
[2023-12-22] MEDS: VANCOMYCIN 1,250 MG/250 ML PIGGYBACK 250 MG IV ×3 (01:05→16:15)
[2023-12-22] MEDS: LORazepam 2 MG/ML INJ 0.5 MG IV ×2 (02:29→05:46)
[2023-12-22 02:41] LABS: MRSA (Nasal) PCR DETECTED (Not Detect)
[2023-12-22 06:07] LABS: Add Manual Diff / Slide Review NO; Basophils Absolute Auto 100 /uL (0-100); Basophils Percent Auto 0.8 % (0-2); Eosinophils Absolute Auto 0 /uL (0-450); Eosinophils Percent Auto 0.6 % (2-4); Hematocrit 32.7 % (41-53); Lymphocytes Absolute Auto 1700 /uL (1100-4500); Lymphocytes Percent Auto 24.2 % (25-40); Mean Corpuscular HGB Conc 33.7 % (30-36); Mean Corpuscular Hemoglobin 28.6 PG (26-34); Mean Corpuscular Volume 84.8 fL (80-100); Monocytes Absolute Auto 900 /uL (0-900); Monocytes Percent Auto 11.8 % (3-14); Neutrophils Absolute Auto 4500 /uL (1500-7000); Neutrophils Percent Auto 62.6 % (50-75); Platelet Count 180 X10^3/uL (150-400); Red Blood Cell Count 3.86 X10^6/uL (4.5-5.9); White Blood Cell Count 7.2 X10^3/uL (4.5-11.0)
[2023-12-22 06:15] LABS: BUN Creatinine Ratio 22.1 (6-22); Blood Urea Nitrogen 15 mg/dL (9-20); Calcium 8.1 mg/dL (8.4-10.2); Carbon Dioxide 24 mmol/L (22-32); Chloride 105 mmol/L (98-107); Estimated Glomerular Filt Rate > 60 mL/min (>60); Glucose 135 mg/dL (70-100); HEMOLYSIS < 15 (0-50); Potassium 3.3 mmol/L (3.4-5.1); Sodium 136 mmol/L (137-145)
--- NOTE | 2023-12-22 06:43 | PC.NURSE ---
Patient has been resting in bed all shift. Able to move self around in bed. Still has redness to BLE. Pain has been okay controlled with oxycodone. And patient able to get some rest after 0.5 IVP Ativan.
[2023-12-22 08:30] VITALS: BP 100/65; PULSE 75; RESP 18; TEMP 36.4; O2SAT 98
[2023-12-22] MEDS: METHADONE 10 MG TABLET PO ×3 (08:58→20:02)
[2023-12-22] MEDS: cefTRIAXone 1,000 MG in SODIUM CHLORIDE 0.9% 100 ML 200 MG IV (08:58)
[2023-12-22] MEDS: OXYCODONE IR 10 MG TABLET PO ×3 (08:58→15:01)
[2023-12-22] MEDS: LORazepam 2 MG/ML INJ 1 MG IV ×6 (08:59→18:48)
[2023-12-22] MEDS: POTASSIUM CHLORIDE 20 MEQ TAB 40 MEQ PO ×2 (09:02→13:29)
--- NOTE | 2023-12-22 09:02 | CM.DANOTE ---
Initial DCP Assessment Visit Note Reviewed EMR and team rounds for status updates. Met with pt at bedside to introduce self and role. Met with pt at bedside to introduce self and role, he was found to be alert/oriented, able to express needs. Met only briefly as he was preparing for breakfast and getting nursing care at the time. Payor: Db PCP-unknown Pt is a 33 year-old M with chronic heroin/fentanyl use presented to the ED via his mother's vehicle last evening with c/o worsening fevers, body aches, and painful redness in right leg that is spreading down to his ankle, making it difficult to walk. He also has a chronic pressure ulcer on the back of his left leg, however it does not appear to be infected. Pt shared with ED staff that he smokes Fentanyl twice per day, and was expressing his concerns about having adequate pain control while in the hospital. He was started on IV antibiotics and placed in OBS bed, likely will need 48-hours of ABO tx inpt. He is also homeless, lives in an RV. His mother will transport him back to his RV once he's medically cleared for d/c. DCP will continue to follow and assist with evolving d/c plan and needs. Discharge Planning/Care Management CM Discharge Assessment Start: 12/22/23 09:00 Freq: Status: Active Protocol: Document 12/22/23 09:00 DPL (Rec: 12/22/23 09:02 DPL [id number]) Discharge Planning Assessment Assigned Derrick Worker [facility] ABDI Strange Advance Directives? No Advance Directives on File No History Provided By Patient,Medical Record Has Patient been admitted in last 30 No days? Prior Living Arrangements RV Household Members none Type of transporation used prior to Drives own vehicle admit Independent with ADL's Yes Is patient alert and oriented? Yes Caregiver for Another No Comment No anticipated home d/c needs identified at this time. Comment Unless cannot d/c on orals and needs IV-Abx, then barriers to d/c due to drug abuse Discharge Plan Home Transportation Arrangement mother Referrals Initiated None needed Whiteboard Updated in Patient Room with Yes name and ext. # of Derrick Worker [facility] Review Status In Process Please Provide Date Initial DC 12/22/23 Assessment Was Performed
--- NOTE | 2023-12-22 10:40 | PM.PN.1 ---
Subjective Subjective Interval history: His pain is under control, he was able to get some sleep. The patient notes his right leg swelling is slightly better but still red and painful. He was elevated in the leg. No chest pain, or dyspnea. Nares MRSA positive. Exam Vital Signs (past 8 hours): - 12/22/23 08:30 Temperature 97.5 F L Pulse Rate 75 Respiratory Rate 18 Blood Pressure 100/65 Pulse Oximetry 98 Oxygen Flow Rate 0 Oxygen Delivery Method Room Air Oxygen Flow Rate 0 Narrative Exam Narrative: NAD, alert and oriented. Fluent speech. Lungs are clear, normal rate and effort. Heart is regular, no murmur gallop or rub. Abdomen is soft, non distended. Extremities are notable for edema bilaterally as well as redness of the right lower extremity from the knee down and including the dorsal aspect of the foot. There is a small anterior ulcer on the right leg. The left leg is also somewhat swollen and less red. There is a large ulcer in the posterior aspect of that leg. Objective Labs 12/22/23 05:50 12/22/23 05:50 Labs: Laboratory Results - last 24 hr 12/21/23 12/21/23 12/21/23 14:20 18:24 18:24 WBC 8.5 RBC 4.28 L Hgb 12.4 L Hct 36.4 L MCV 85.1 MCH 28.9 MCHC 34.0 RDW 14.9 H Plt Count 201 Neut % (Auto) 65.7 Lymph % (Auto) 22.8 L [place] % (Auto) 11.2 Eos % (Auto) 0.1 L Baso % (Auto) 0.2 Neut # (Auto) 5600 Lymph # (Auto) 1900 [place] # (Auto) 1000 H Eos # (Auto) 0 Baso # (Auto) 0 ESR 65 H Sodium 133 L Potassium 3.3 L Chloride 98 Carbon Dioxide 27 BUN 16 Creatinine 0.88 Estimated GFR > 60 BUN/Creatinine Ratio 18.2 Glucose 116 H Lactate 1.2 Calcium 8.8 Total Bilirubin 1.0 AST 44 ALT 29 Alkaline Phosphatase 128 H C-Reactive Protein 34.6 H Total Protein 8.3 H Albumin 4.1 Globulin 4.2 H Albumin/Globulin Ratio 1.0 Lipase 27 Procalcitonin 0.59 H Urine Color Yellow Urine Appearance Clear Urine pH 6.0 Normal Ur Specific [place] 1.020 Urine Protein 2+ H Urine Glucose (UA) Negative Urine Ketones Trace H Urine Occult Blood 1+ H Urine Nitrate Negative Urine Bilirubin 1+ H Ur Bilirubin Confirm Positive H Urine Urobilinogen 4.0 H Ur Leukocyte Esterase Negative Urine RBC 0-1/hpf Urine WBC 1-5/hpf Ur Squamous Epith Cells 1-5 /hpf Urine Bacteria Occasional (0-1) Hyaline Casts 0-1/lpf Urine Mucus 1+ H Ur Culture Indicated? Cult not indicated Vol Urine Centrifuged 10ml (spun) Nasal Screen MRSA (PCR) U Opiates 300ng/mL cut Negative Ur Oxycodone Screen Negative Urine Methadone Screen Negative Ur Barbiturates Screen Negative U Tricyclic Antidepress Negative Ur Phencyclidine Scrn Negative Ur Amphetamines Screen Positive H U Methamphetamines Scrn Positive H Ur MDMA Scrn (Ecstasy) Negative U Benzodiazepines Scrn Negative Urine Cocaine Screen Negative U Marijuana (THC) Screen Negative Urine Specific [place] Normal Ethyl Alcohol < 10 Ur Creatinine Normal 12/22/23 12/22/23 01:25 05:50 WBC 7.2 RBC 3.86 L Hgb 11.0 L Hct 32.7 L MCV 84.8 MCH 28.6 MCHC 33.7 RDW 15.0 H Plt Count 180 Neut % (Auto) 62.6 Lymph % (Auto) 24.2 L [place] % (Auto) 11.8 Eos % (Auto) 0.6 L Baso % (Auto) 0.8 Neut # (Auto) 4500 Lymph # (Auto) 1700 [place] # (Auto) 900 Eos # (Auto) 0 Baso # (Auto) 100 ESR Sodium 136 L Potassium 3.3 L Chloride 105 Carbon Dioxide 24 BUN 15 Creatinine 0.68 Estimated GFR > 60 BUN/Creatinine Ratio 22.1 H Glucose 135 H Lactate Calcium 8.1 L Total Bilirubin AST ALT Alkaline Phosphatase C-Reactive Protein Total Protein Albumin Globulin Albumin/Globulin Ratio Lipase Procalcitonin Urine Color Urine Appearance Urine pH Ur Specific [place] Urine Protein Urine Glucose (UA) Urine Ketones Urine Occult Blood Urine Nitrate Urine Bilirubin Ur Bilirubin Confirm Urine Urobilinogen Ur Leukocyte Esterase Urine RBC Urine WBC Ur Squamous Epith Cells Urine Bacteria Hyaline Casts Urine Mucus Ur Culture Indicated? Vol Urine Centrifuged Nasal Screen MRSA (PCR) Detected H U Opiates 300ng/mL cut Ur Oxycodone Screen Urine Methadone Screen Ur Barbiturates Screen U Tricyclic Antidepress Ur Phencyclidine Scrn Ur Amphetamines Screen U Methamphetamines Scrn Ur MDMA Scrn (Ecstasy) U Benzodiazepines Scrn Urine Cocaine Screen U Marijuana (THC) Screen Urine Specific [place] Ethyl Alcohol Ur Creatinine PENDING S[facility] TO [facility] Medical History Abscess, gluteal, right Abscess of skin or subcutaneous tissue Homeless Heroin dependence Pneumonia Cellulitis and abscess of hand Endocarditis Surgical History Tricuspid valve replaced Social History household members: none Smoking Status: Former smoker alcohol intake: current substance use type: heroin Assessment & Plan Assessment & Plan narrative: 1. Right leg cellulitis, present on admission and active. 2. Fentanyl dependence, present on admission and active. 3. Remote tricuspid valve repair for endocarditis, stable. PLAN: -IV antibiotics, initially ceftriaxone vancomycin. -blood cultures to rule out bacteremia. Pending. -MRSA screen of the nares POSITIVE. -elevate leg. -methadone 10 t.i.d. -Analgesia with Oxycodone. He requires an additional 24 hours of IV antibiotics. We need to see substantial improvement of the degree of redness and warmth and swelling as well as negative blood cultures. Quality VTE Deep Vein Thrombosis/Pulmonary Embolism Present on Admission: No
[2023-12-22] MEDS: SODIUM CHLORIDE 0.9% 1,000 ML 125 ML IV ×2 (12:08→22:14)
--- NOTE | 2023-12-22 12:15 | PC.NURSE ---
Pt had guest come by to discuss living situation. Guest stated that the pt is no longer allow to live on the property or on the trailer, this RN could not get more info from the pt's guest.
[2023-12-22] MEDS: ACETAMINOPHEN 325 MG TABLET 650 MG PO (16:14)
[2023-12-22] MEDS: OXYCODONE IR 5 MG TABLET 15 MG PO ×2 (16:14→18:48)
[2023-12-22] MEDS: HYDROMORPHONE 2 MG INJ IV (16:54)
[2023-12-22] MEDS: IBUPROFEN 600 MG TABLET PO (18:47)
[2023-12-22 20:00] VITALS: BP 130/77; PULSE 74; RESP 17; TEMP 36.7; O2SAT 98
--- NOTE | 2023-12-23 00:12 | PC.NURSE ---
Patient yelling and had a angry outburst. States he couldn't get his urinal but did not call for assistance. Urinal was next to the bed where he could reach. Also complained that he was all tangled up and couldn't reach his phone. Patient calmed down after this RN spoke to him about his outburst and got all tubing untangled. Cell phone stayed where it was d/t it charging and this RN explained to him he can have it close but then it can not charge since the cord is to short. Patient more approachable and denied any other needs.
[2023-12-23] MEDS: VANCOMYCIN 1,250 MG/250 ML PIGGYBACK 250 MG IV ×3 (00:25→15:35)
[2023-12-23] MEDS: LORazepam 2 MG/ML INJ 1 MG IV ×4 (00:26→20:24)
[2023-12-23 06:51] LABS: Add Manual Diff / Slide Review NO; Basophils Absolute Auto 0 /uL (0-100); Basophils Percent Auto 0.3 % (0-2); Eosinophils Absolute Auto 200 /uL (0-450); Eosinophils Percent Auto 3.8 % (2-4); Hematocrit 30.7 % (41-53); Hemoglobin 10.2 g/dL (13.5-17.5); Lymphocytes Absolute Auto 1600 /uL (1100-4500); Lymphocytes Percent Auto 33.1 % (25-40); Mean Corpuscular HGB Conc 33.3 % (30-36); Mean Corpuscular Hemoglobin 28.5 PG (26-34); Mean Corpuscular Volume 85.6 fL (80-100); Monocytes Absolute Auto 500 /uL (0-900); Monocytes Percent Auto 10.7 % (3-14); Neutrophils Absolute Auto 2500 /uL (1500-7000); Neutrophils Percent Auto 52.1 % (50-75); Platelet Count 160 X10^3/uL (150-400); Red Blood Cell Count 3.59 X10^6/uL (4.5-5.9); Red Cell Distribution Width 15.9 % (11.6-14.8); White Blood Cell Count 4.8 X10^3/uL (4.5-11.0)
[2023-12-23 07:00] VITALS: BP 129/66; PULSE 75; RESP 20; TEMP 36.5; O2SAT 98
[2023-12-23 07:05] LABS: BUN Creatinine Ratio 24.1 (6-22); Blood Urea Nitrogen 14 mg/dL (9-20); Calcium 8.2 mg/dL (8.4-10.2); Carbon Dioxide 23 mmol/L (22-32); Chloride 110 mmol/L (98-107); Estimated Glomerular Filt Rate > 60 mL/min (>60); Glucose 123 mg/dL (70-100); HEMOLYSIS < 15 (0-50); Potassium 4.1 mmol/L (3.4-5.1); Sodium 138 mmol/L (137-145)
[2023-12-23] MEDS: VANCOMYCIN TROUGH 1 REQUEST MISC (07:19)
[2023-12-23] MEDS: cefTRIAXone 1,000 MG in SODIUM CHLORIDE 0.9% 100 ML 200 MG IV (08:50)
[2023-12-23] MEDS: METHADONE 10 MG TABLET PO ×3 (09:09→20:24)
--- NOTE | 2023-12-23 09:31 | P.PN_ITS ---
Subjective Subjective Interval history: He has feeling a little bit better today with less leg swelling and pain. He still has significant redness and swelling. He denies any chest pain or dyspnea, no nausea. Exam Vital Signs (past 8 hours): - 12/23/23 07:00 Temperature 97.7 F Pulse Rate 75 Respiratory Rate 20 Blood Pressure 129/66 Pulse Oximetry 98 Oxygen Flow Rate 0 Oxygen Delivery Method Room Air Oxygen Flow Rate 0 Narrative Exam Narrative: NAD, alert and oriented. Fluent speech. Lungs are clear, normal rate and effort. Heart is regular, no murmur gallop or rub. Abdomen is soft, non distended. Extremities: The right extremity has less edema and redness. There is no areas of obvious fluctuance or crepitus. Objective Labs 12/23/23 06:41 12/23/23 06:41 Labs: Laboratory Results - last 24 hr 12/23/23 06:41 WBC 4.8 RBC 3.59 L Hgb 10.2 L Hct 30.7 L MCV 85.6 MCH 28.5 MCHC 33.3 RDW 15.9 H Plt Count 160 Neut % (Auto) 52.1 Lymph % (Auto) 33.1 [place] % (Auto) 10.7 Eos % (Auto) 3.8 Baso % (Auto) 0.3 Neut # (Auto) 2500 Lymph # (Auto) 1600 [place] # (Auto) 500 Eos # (Auto) 200 Baso # (Auto) 0 Sodium 138 Potassium 4.1 Chloride 110 H Carbon Dioxide 23 BUN 14 Creatinine 0.58 L Estimated GFR > 60 BUN/Creatinine Ratio 24.1 H Glucose 123 H Calcium 8.2 L Vancomycin Trough 16.0 PFSH Medical History Abscess, gluteal, right Abscess of skin or subcutaneous tissue Homeless Heroin dependence Pneumonia Cellulitis and abscess of hand Endocarditis Surgical History Tricuspid valve replaced Social History household members: none Smoking Status: Former smoker alcohol intake: current substance use type: heroin Assessment & Plan Assessment & Plan narrative: 1. Right leg cellulitis, present on admission and active. 2. Fentanyl dependence, present on admission and active. 3. Remote tricuspid valve repair for endocarditis, stable. PLAN: He is improving but still has significant cellulitis of the lower extremity. We will continue IV at [facility] for an additional 24 hours. We will continue her current pain medications with methadone t.i.d. and as needed oxycodone. His blood cultures remained negative. Anticipate possible discharge on December 23 with oral antibiotics. Quality VTE Deep Vein Thrombosis/Pulmonary Embolism Present on Admission: No
[2023-12-23] MEDS: OXYCODONE IR 5 MG TABLET 15 MG PO (15:13)
[2023-12-23 20:21] VITALS: BP 98/65; PULSE 75; RESP 20; O2SAT 98
[2023-12-24] MEDS: LORazepam 2 MG/ML INJ 1 MG IV ×4 (00:23→11:24)
[2023-12-24] MEDS: VANCOMYCIN 1,250 MG/250 ML PIGGYBACK 250 MG IV ×2 (00:23→09:21)
[2023-12-24] MEDS: OXYCODONE IR 5 MG TABLET 15 MG PO ×2 (01:30→10:17)
--- NOTE | 2023-12-24 03:08 | PC.NURSE ---
Unable to do a full head to toe assessment on pt due to agitation. Pt yelling at the nursing staff upon medication administration and throwing his phone on the floor while using foul language. pt was connected to his IV antibiotics to his left upper arm which pt kept bending arm causing an occlusion alarm on his IV pump which was making pt upset and causing him to start yelling out. Pt could benefit from another IV start but this nurse didn't feel comfortable starting another IV on him due to his behavior. Pt did get an extra dose of Ativan 1 mg IVP along with oxycodone 15 mg PO.
[2023-12-24] MEDS: cefTRIAXone 1,000 MG in SODIUM CHLORIDE 0.9% 100 ML 200 MG IV (08:36)
[2023-12-24] MEDS: METHADONE 10 MG TABLET PO (08:36)
[2023-12-24 08:41] VITALS: BP 101/53; PULSE 75; RESP 16; TEMP 36.7; O2SAT 97
[2023-12-24] MEDS: ACETAMINOPHEN 325 MG TABLET 650 MG PO (10:16)
--- NOTE | 2023-12-24 10:30 | PM.DS.1 ---
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 He presents now with fevers and rigors for 2 days as well as a right lower extremity which is red and hot. He denies any trauma. He notes that the redness has extended in total area. He is having some difficulty weight-bearing. In speaking to him further, he notes ongoing use of fentanyl which he smokes. He denies recent IV drug use. He also notes he has had a chronic wound over the posterior aspect of his left lower leg and a newer abrasion over the right lower leg in the anterior region. He denies any obvious new trauma. He has felt ill and had increased redness over the last several days of the right lower leg which prompted him presenting today. He does smoke fentanyl twice a day and is concerned about pain control and withdrawal symptoms. He last used several hours prior to presentation. Discharge Providers Provider Date of admission: 12/23/23 14:11 Discharge Date: 12/24/23 Primary care physician: Doctor Glendy MD Consults: None. Arrangements made for outpatient wound care at the time of discharge. Discharge provider: Bobby Liang MD Summary Hospital Course Discharge Diagnosis: 1. Right leg cellulitis, present on admission and active. 2. Fentanyl dependence, present on admission and active. 3. Remote tricuspid valve repair for endocarditis, stable. Hospital Course: The patient was admitted for bilateral leg cellulitis, right worse than left. He has a history of recurrent cellulitis and ulcers of his lower extremities. The patient was treated with IV antibiotics and did have a positive MRSA screen. He had substantial improvement of both redness and swelling of his legs. He did have some difficulties with the pain control and his opiate withdrawal symptoms. The patient has a large ulcer which is chronic over the posterior aspect of his left leg just above the ankle. He also has more superficial ulceration in the pretibial region of the right leg. On the day of discharge, he was felt to be sufficiently improved to be discharged on oral antibiotics, doxycycline. A call was made to wound care to set up out patient wound care evaluation and management. He also had negative blood cultures. Status at Discharge Cognitive/behavioral status at discharge: oriented Functional status at discharge: independent ambulation Overall status at discharge: patient is back to baseline Time Spent with Patient Time spent: Greater than 30 minutes Exam Vital Signs (past 8 hours): - 12/24/23 08:41 Temperature 98.0 F Pulse Rate 75 Respiratory Rate 16 Blood Pressure 101/53 L Pulse Oximetry 97 Oxygen Flow Rate 0 Oxygen Delivery Method Room Air Oxygen Flow Rate 0 Narrative Exam Narrative: NAD, alert and oriented. Fluent speech. Somewhat labile behavior with intermittent agitation. Lungs are clear, normal rate and effort. Heart is regular, no murmur gallop or rub. Abdomen is soft, non distended. Extremities are free of edema. Substantial reduction and redness of both legs he would substantial reduction in edema. Ulceration in the posterior aspect of the left lower leg which is not draining it appears to have a clean base. Objective Labs 12/23/23 06:41 12/23/23 06:41 [facility] Medical History Abscess, gluteal, right Abscess of skin or subcutaneous tissue Homeless Heroin dependence Pneumonia Cellulitis and abscess of hand Endocarditis Surgical History Tricuspid valve replaced Social History household members: none Smoking Status: Former smoker alcohol intake: current substance use type: heroin Discharge Assessment & Plan Assessment and Plan Assessment: 1. Right leg cellulitis, present on admission and active. 2. Fentanyl dependence, present on admission and active. 3. Remote tricuspid valve repair for endocarditis, stable. Plan of Treatment: Doxycycline 100 b.i.d. for 7 additional days, elevate legs, follow up with PCP within 6 days for re-evaluation. ER for increased redness, swelling or fevers. Outpatient wound care has been arranged. Discharge Plan Discharge Plan Patient Disposition: Home Provider Discharge Comment: See PCP within 6 days, elevate legs, come to emergency department if redness or swelling increases, take antibiotics until gone. Discharge orders & Medications Prescriptions: New doxycycline monohydrate 100 mg capsule 100 mg PO BID Qty: 14 0RF Medication counseling provided by Pharmacist: No Follow up/Referrals: Miscellaneous,DoctorMD [Primary Care Provider] - Discharge Health Status Multidrug resistant organism: MRSA Diet/Activity/Treatments Diet: Regular Activity: As tolerated. Skin/Wound/Dressing Care Report to your healthcare provider any signs of infection, such as:: chills, fever, increased pain and unusual drainage Visit Report/Discharge Packet Instructions: DI for Cellulitis -- Adult, Getting Treatment for Substance Use Disorder, DI for Substance Use Disorder Stand Alone Forms: Patient Portal/API Discharge Data Primary Care Provider: Miscellaneous,Doctor Quality VTE Deep Vein Thrombosis/Pulmonary Embolism Present on Admission: No
--- NOTE | 2023-12-24 12:54 | CM.DPC ---
Addendum entered by ABDI Bray 12/24/23 14:58: ADD: SW spoke to Tyrese, community generator rebuilder, and completed new referral for his program for additional support in the community to attempt to assist with pt's f/u with wound care, PCP, DOC support. BF Original Note: DCP Discharge Home Per MD, pt medically stable to d/c home today with PO abx and outpt f/u for wound care. SW met bedside with pt who has been fairly agitated/withdrawal symptoms throughout his admission and pt clearly in discomfort. RN kindly medication pt with Ativan and pt more relaxed and able to participate in discussion. SW and RN met bedside with pt and SW provided resources for [facility], [facility], [facility], medication assisted tx at [facility] and [facility]. Pt states he is not interested in discharging to any of those options, briefly states he has attempted medication assisted tx previously and did not find it helpful but not interested in providing more specific information. Pt confirms he feels he will follow through with the [facility] for outpt f/u and plans to walk a couple blocks to his friend's house as his mom confirms he cannot stay with her while he is actively using. Pt unsure if he has Medicaid Transportation benefits and SW explained it could potentially be used for MD and DOC appointments if needed. Pt does not have a current PCP but provided with the [facility] PCP list as he would prefer to establish care here in [place]. RN kindly contacted [facility] with pt referral information for outpt f/u. Pt does not have concerns with getting his PO abx from [facility]. Pt denies any further needs at this time and preference is to discharge to friend's house. ABDI Bray
--- NOTE | 2023-12-24 13:03 | PC.NURSE ---
Patient's mood and behavior labile today, agitated at times, tearful, and frequently yelling out profanity in room. Medicated with prn's as seen on EMAR for anxiety and pain. Patient agreed to let this RN cleanse ulcerations to his legs (1 on right front castellon and 1 on left back calf) with sterile saline and cover with nonadherent allevyn dressings. Patient declined all options discussed for rehab or treatment follow up, director case management attempted to speak with him several times. Patient states he no longer has a PCP, patient given a resource to assist him with establishing care for a new PCP, unfortunately patient was not willing to wait any longer for this RN to assist him to make calls or schedule an appointment for him. Message was left with wound care, and they state they will attempt to contact him to schedule an appointment. Patient escorted out, states he is walking to a friends that lives a few blocks away. Importance of completing his antibiotic treatment and to continue to try to stop using illicit drugs re iterated, patient states understanding. Patient's mother notified of his discharge per patient permission.
== END 2023-12-24 12:45 | disposition home or self-care (01) | DRG 383 ==
LOC: ED 14:57 → AC 15:32
PROVIDERS: Admitting Provider Hospitalist; Emergency Provider Emergency Medicine; Referring Provider Emergency Medicine; Visit Provider Hospitalist
DX: L03.115 Cellulitis of right lower limb (principal); F11.20 Opioid dependence, uncomplicated; L97.229 Non-pressure chronic ulcer of left calf with unspecified severity; L97.219 Non-pressure chronic ulcer of right calf with unspecified severity; Z95.2 Presence of prosthetic heart valve; Z87.891 Personal history of nicotine dependence; Z22.322 Carrier or suspected carrier of Methicillin resistant Staphylococcus aureus
CPT/HCPCS: 36415; 80048; 80053; 80202; 80305; 80320; 81001; 83605; 83690; 84145; 85025; 85651; 86140; 87040; 87086; 87797; 96365; 96375; 99284; G0378; J0696; J1170; J1885; J2060

== ENCOUNTER 2024-02-22 21:23 | Emergency (ER) | payer OTHER, MEDICAID, SELFPAY ==
[2023-12-21 16:28] VITALS: BMI 30.1
[2024-02-22 21:26] VITALS: BP 116/72; PULSE 97; RESP 16; TEMP 37; O2SAT 97; BMI 27.2
--- NOTE | 2024-02-22 21:58 | EKG_ITS ---
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
--- NOTE | 2024-02-22 22:05 | ED_ITS ---
HPI - Skin/Abscess/Foreign Bdy General Chief complaint: Skin/Abscess/Foreign Body Stated complaint: without antibiotic/sick Time Seen by Provider: 02/22/24 22:03 Source: patient Mode of arrival: Family Vehicle Limitations: no limitations History of Present Illness HPI narrative: Patient left without being seen by provider. He was triage into a room, but when I went to see him he was apparently in the bathroom. He did not allow IV access, did not receive IV antibiotics, by report from triage he may have had cellulitis, but elected not to stay for IV antibiotics, was wanting some kind of oral antibiotic, but did not stay for discussion with provider. Related Data Previous Rx's Medication Instructions Recorded doxycycline monohydrate 100 mg 100 mg PO BID #14 caps 12/23/23 capsule Allergies Allergy/AdvReac Type Severity Reaction Status Date / Time Sulfa (Sulfonamide Allergy Intermediate Verified 02/22/24 22:07 Antibiotics) [SULFA (SULFONAMIDE ANTIBIOTICS)] Patient History Medical History Abscess, gluteal, right Abscess of skin or subcutaneous tissue Homeless Heroin dependence Pneumonia Cellulitis and abscess of hand Endocarditis Surgical History Tricuspid valve replaced Social History household members: none Smoking Status: Former smoker alcohol intake: current substance use type: heroin Smoking Status: Former smoker tobacco type: vaping alcohol intake frequency: holidays/special occasions only Substance Use Type: heroin, opiates, painkillers, methamphetamine and other Exam Initial Vital Signs Initial Vital Signs: Vital Signs Temperature 98.6 F 02/22/24 21:26 Pulse Rate 97 H 02/22/24 21:26 Respiratory Rate 16 02/22/24 21:26 Blood Pressure 116/72 02/22/24 21:26 Pulse Oximetry 97 02/22/24 21:26 Oxygen Delivery Method Room Air 02/22/24 21:26 Course Orders Ordered: ED Orders 02/22/24 21:37 EKG-12 Lead Stat 02/22/24 21:50 Blood Culture Stat CRP [C-Reactive Protein Quant] Stat Complete Blood Count AUTO DIFF Stat Comprehensive Metabolic Panel Stat ESR [Erythrocyte Sedimentation Rate] Stat Lactate (Lactic Acid) Stat Lipase Stat Discontinued Medications Vancomycin HCl 1,750 mg/ (Sodium Chloride) 500 mls @ 250 mls/hr IV NOW ONE Stop: 02/22/24 22:04 Last Admin: 02/23/24 00:45 Dose: Not Given Documented By: TYLER Ceftriaxone Sodium 1,000 mg/ (Sodium Chloride) 100 mls @ 200 mls/hr IV NOW ONE Stop: 02/22/24 22:05 Last Admin: 02/23/24 00:45 Dose: Not Given Documented By: TYLER Ondansetron HCl (Ondansetron 4 Mg/2 Ml Inj) 4 mg IV NOW PRN PRN Reason: Nausea And Vomiting Ondansetron HCl (Ondansetron 4 Mg Odt) 4 mg PO NOW PRN PRN Reason: Nausea And Vomiting Vital Signs Vital signs: Vital Signs - 8 hr 02/22/24 21:26 Temperature 98.6 F Pulse Rate 97 H Respiratory Rate 16 Blood Pressure 116/72 Pulse Oximetry 97 Oxygen Delivery Method Room Air MDM - Skin/Abscess/Foreign Bdy Lab Data Attestation: I reviewed the patient's lab results. 02/22/24 21:50 02/22/24 21:50 Labs: Lab Results 02/22/24 Range/Units 21:50 WBC 7.7 (4.5-11.0) X10^3/uL RBC 4.83 (4.5-5.9) X10^6/uL Hgb 13.7 (13.5-17.5) g/dL Hct 41.0 (41-53) % MCV 85.0 (80-100) fL MCH 28.4 (26-34) PG MCHC 33.4 (30-36) % RDW 15.7 H (11.6-14.8) % Plt Count 334 (150-400) X10^3/uL Neut % (Auto) 41.2 L (50-75) % Lymph % (Auto) 45.3 H (25-40) % [place] % (Auto) 9.8 (3-14) % Eos % (Auto) 3.3 (2-4) % Baso % (Auto) 0.4 (0-2) % Neut # (Auto) 3200 (4698-2652) /uL Lymph # (Auto) 3500 (6786-2134) /uL [place] # (Auto) 800 (0-900) /uL Eos # (Auto) 300 (0-450) /uL Baso # (Auto) 0 (0-100) /uL ESR 19 H (0-15) MM/HR Sodium 141 (137-145) mmol/L Potassium 3.5 (3.4-5.1) mmol/L Chloride 105 (98-107) mmol/L Carbon Dioxide 26 (22-32) mmol/L BUN 9 (9-20) mg/dL Creatinine 0.97 (0.66-1.25) mg/dL Estimated GFR > 60 (>60) mL/min BUN/Creatinine Ratio 9.3 (6-22) Glucose 102 H (70-100) mg/dL Lactate 1.4 (0.7-2.1) mmol/L Calcium 8.8 (8.4-10.2) mg/dL Total Bilirubin 0.9 (0.2-1.3) mg/dL AST 37 (17-59) IU/L ALT 40 (<50) IU/L Alkaline Phosphatase 96 (38-126) U/L C-Reactive Protein < 0.5 (<1.0) mg/dL Total Protein 8.5 H (6.3-8.2) g/dL Albumin 4.7 (3.5-5.0) g/dL Globulin 3.8 (1.7-4.1) g/dL Albumin/Globulin Ratio 1.2 (1.0-2.8) Lipase 31 (23-300) U/L ECG Data Attestation: I personally reviewed and interpreted this ECG as follows: Interpretation: Normal sinus rhythm with rate of 95, no obvious ST segment elevation or depression changes. DC 168, QRS 112, QTC 429. Discharge Plan Departure Patient Disposition: Left Without Being Seen Clinical Impression: Patient left without being seen Prescriptions: No Action doxycycline monohydrate 100 mg capsule 100 mg PO BID Qty: 14 0RF
[2024-02-22 22:13] LABS: Add Manual Diff / Slide Review NO; Basophils Absolute Auto 0 /uL (0-100); Basophils Percent Auto 0.4 % (0-2); Eosinophils Absolute Auto 300 /uL (0-450); Eosinophils Percent Auto 3.3 % (2-4); Hemoglobin 13.7 g/dL (13.5-17.5); Lymphocytes Absolute Auto 3500 /uL (1100-4500); Lymphocytes Percent Auto 45.3 % (25-40); Mean Corpuscular HGB Conc 33.4 % (30-36); Mean Corpuscular Hemoglobin 28.4 PG (26-34); Monocytes Absolute Auto 800 /uL (0-900); Monocytes Percent Auto 9.8 % (3-14); Neutrophils Absolute Auto 3200 /uL (1500-7000); Neutrophils Percent Auto 41.2 % (50-75); Platelet Count 334 X10^3/uL (150-400); Red Blood Cell Count 4.83 X10^6/uL (4.5-5.9); Red Cell Distribution Width 15.7 % (11.6-14.8); White Blood Cell Count 7.7 X10^3/uL (4.5-11.0)
[2024-02-22 22:23] LABS: Lactate (Lactic Acid) 1.4 mmol/L (0.7-2.1)
[2024-02-22 22:24] LABS: Alanine Aminotransferase 40 IU/L (<50); Albumin 4.7 g/dL (3.5-5.0); Albumin Globulin Ratio 1.2 (1.0-2.8); Alkaline Phosphatase 96 U/L (38-126); Aspartate Aminotransferase 37 IU/L (17-59); BUN Creatinine Ratio 9.3 (6-22); Bilirubin Total 0.9 mg/dL (0.2-1.3); Blood Urea Nitrogen 9 mg/dL (9-20); Calcium 8.8 mg/dL (8.4-10.2); Carbon Dioxide 26 mmol/L (22-32); Chloride 105 mmol/L (98-107); Estimated Glomerular Filt Rate > 60 mL/min (>60); Globulin 3.8 g/dL (1.7-4.1); Glucose 102 mg/dL (70-100); HEMOLYSIS < 15 (0-50); Lipase 31 U/L (23-300); Potassium 3.5 mmol/L (3.4-5.1); Sodium 141 mmol/L (137-145); Total Protein 8.5 g/dL (6.3-8.2)
[2024-02-23 00:01] LABS: C-Reactive Protein Quant < 0.5 mg/dL (<1.0)
[2024-02-23 00:29] LABS: Erythrocyte Sedimentation Rate 19 MM/HR (0-15)
--- NOTE | 2024-02-23 00:38 | PC.NURSE ---
Patient ambulatory to nurses station multiple times expressing that he wants to leave and that he just wants prescription sent to pharmacy in town. Staff explained process that he needs to be evaluated by ER-MD. Patient contemplating leaving and returned to room. MD did attempt to see patient in room but when MD entered patient's room, patient was in the bathroom. Patient later came out of room again to inform staff he is leaving. He states he will try again tomorrow and return to ER. Patient states he has friend waiting on him.
== END 2024-02-23 00:30 | disposition left against medical advice (07) ==
PROVIDERS: Emergency Provider Emergency Medicine
DX: L08.9 Local infection of the skin and subcutaneous tissue, unspecified (principal); I45.10 Unspecified right bundle-branch block; Z53.21 Procedure and treatment not carried out due to patient leaving prior to being seen by health care provider
CPT/HCPCS: 36415; 80053; 83605; 83690; 85025; 85651; 86140; 87040; 93005; 99283

== ENCOUNTER → 2024-05-15 14:08 | Outpatient (CLI) | payer OTHER, MEDICAID, SELFPAY ==
[2023-12-21 16:28] VITALS: BMI 30.1
== END ==
LOC: WC 14:11
PROVIDERS: Visit Provider Surgery
DX: L97.812 Non-pressure chronic ulcer of other part of right lower leg with fat layer exposed (principal); L97.822 Non-pressure chronic ulcer of other part of left lower leg with fat layer exposed; I87.2 Venous insufficiency (chronic) (peripheral); R60.0 Localized edema; L53.9 Erythematous condition, unspecified; F19.10 Other psychoactive substance abuse, uncomplicated
CPT/HCPCS: 11042; 29581; 87070; 87075; 87147; 87205; 99203; 99214

== ENCOUNTER → 2024-06-18 11:40 | Outpatient (CLI) | payer OTHER, MEDICAID, SELFPAY ==
[2023-12-21 16:28] VITALS: BMI 30.1
== END ==
PROVIDERS: Visit Provider Surgery
DX: L97.222 Non-pressure chronic ulcer of left calf with fat layer exposed (principal); I87.2 Venous insufficiency (chronic) (peripheral); R60.0 Localized edema; L53.9 Erythematous condition, unspecified; Z91.199 Patient's noncompliance with other medical treatment and regimen due to unspecified reason
CPT/HCPCS: 29580; 87070; 87075; 87077; 87147; 87186; 87205; 99213

== ENCOUNTER → 2024-07-02 11:15 | Outpatient (CLI) | payer OTHER, MEDICAID, SELFPAY ==
[2023-12-21 16:28] VITALS: BMI 30.1
== END ==
PROVIDERS: Visit Provider Surgery
DX: L97.812 Non-pressure chronic ulcer of other part of right lower leg with fat layer exposed (principal); L97.822 Non-pressure chronic ulcer of other part of left lower leg with fat layer exposed; I87.2 Venous insufficiency (chronic) (peripheral); L08.89 Other specified local infections of the skin and subcutaneous tissue; R23.4 Changes in skin texture; R60.0 Localized edema; L53.9 Erythematous condition, unspecified
CPT/HCPCS: 11042

== ENCOUNTER → 2024-07-04 09:57 | Outpatient (CLI) | payer OTHER, MEDICAID, SELFPAY ==
[2023-12-21 16:28] VITALS: BMI 30.1
== END ==
LOC: WC 09:59
PROVIDERS: Visit Provider Physician Assistant
DX: I87.2 Venous insufficiency (chronic) (peripheral) (principal); L97.822 Non-pressure chronic ulcer of other part of left lower leg with fat layer exposed; L97.812 Non-pressure chronic ulcer of other part of right lower leg with fat layer exposed; L53.8 Other specified erythematous conditions; L98.8 Other specified disorders of the skin and subcutaneous tissue
CPT/HCPCS: 29580

== ENCOUNTER → 2024-07-07 10:33 | Outpatient (CLI) | payer OTHER, MEDICAID, SELFPAY ==
[2023-12-21 16:28] VITALS: BMI 30.1
== END ==
PROVIDERS: Visit Provider Surgery
DX: L97.822 Non-pressure chronic ulcer of other part of left lower leg with fat layer exposed (principal); L97.812 Non-pressure chronic ulcer of other part of right lower leg with fat layer exposed; I87.2 Venous insufficiency (chronic) (peripheral); R60.0 Localized edema; L53.9 Erythematous condition, unspecified
CPT/HCPCS: 29580

== ENCOUNTER → 2024-07-21 09:34 | Outpatient (CLI) | payer OTHER, MEDICAID, SELFPAY ==
[2023-12-21 16:28] VITALS: BMI 30.1
== END ==
PROVIDERS: Visit Provider Surgery
DX: L97.812 Non-pressure chronic ulcer of other part of right lower leg with fat layer exposed (principal); L97.822 Non-pressure chronic ulcer of other part of left lower leg with fat layer exposed; I87.2 Venous insufficiency (chronic) (peripheral); L98.8 Other specified disorders of the skin and subcutaneous tissue; R60.0 Localized edema; L53.9 Erythematous condition, unspecified; F19.10 Other psychoactive substance abuse, uncomplicated
CPT/HCPCS: 11042; 99213

== ENCOUNTER → 2024-08-07 14:52 | Outpatient (CLI) | payer OTHER, MEDICAID, SELFPAY ==
[2023-12-21 16:28] VITALS: BMI 30.1
== END ==
LOC: WC 14:53
PROVIDERS: Visit Provider Surgery
DX: L97.812 Non-pressure chronic ulcer of other part of right lower leg with fat layer exposed (principal); L97.822 Non-pressure chronic ulcer of other part of left lower leg with fat layer exposed; I87.2 Venous insufficiency (chronic) (peripheral); R60.0 Localized edema; L53.9 Erythematous condition, unspecified; F19.10 Other psychoactive substance abuse, uncomplicated; Z91.199 Patient's noncompliance with other medical treatment and regimen due to unspecified reason
CPT/HCPCS: 11042

== ENCOUNTER → 2024-08-14 11:34 | Outpatient (CLI) | payer OTHER, SELFPAY ==
[2023-12-21 16:28] VITALS: BMI 30.1
== END ==
PROVIDERS: Visit Provider Surgery
DX: L97.812 Non-pressure chronic ulcer of other part of right lower leg with fat layer exposed (principal); L97.822 Non-pressure chronic ulcer of other part of left lower leg with fat layer exposed; I87.2 Venous insufficiency (chronic) (peripheral); R60.0 Localized edema; L53.9 Erythematous condition, unspecified; F19.10 Other psychoactive substance abuse, uncomplicated; Z91.199 Patient's noncompliance with other medical treatment and regimen due to unspecified reason
CPT/HCPCS: 99213

== ENCOUNTER → 2024-08-28 11:19 | Outpatient (CLI) | payer OTHER, SELFPAY ==
[2023-12-21 16:28] VITALS: BMI 30.1
== END ==
PROVIDERS: Visit Provider Surgery
DX: L97.812 Non-pressure chronic ulcer of other part of right lower leg with fat layer exposed (principal); L97.822 Non-pressure chronic ulcer of other part of left lower leg with fat layer exposed; I87.2 Venous insufficiency (chronic) (peripheral); L53.9 Erythematous condition, unspecified; R60.0 Localized edema; F19.10 Other psychoactive substance abuse, uncomplicated; Z91.199 Patient's noncompliance with other medical treatment and regimen due to unspecified reason
CPT/HCPCS: 11042

== ENCOUNTER → 2024-09-03 14:18 | Outpatient (CLI) | payer OTHER, SELFPAY ==
[2023-12-21 16:28] VITALS: BMI 30.1
== END ==
PROVIDERS: Visit Provider Surgery
DX: L97.822 Non-pressure chronic ulcer of other part of left lower leg with fat layer exposed (principal); L97.812 Non-pressure chronic ulcer of other part of right lower leg with fat layer exposed; I87.2 Venous insufficiency (chronic) (peripheral); L53.9 Erythematous condition, unspecified; R60.0 Localized edema; F19.20 Other psychoactive substance dependence, uncomplicated; Z91.199 Patient's noncompliance with other medical treatment and regimen due to unspecified reason
CPT/HCPCS: 97602; 99213

== ENCOUNTER 2025-05-24 18:28 | Emergency (ER) | payer OTHER, SELFPAY ==
[2023-12-21 16:28] VITALS: BMI 30.1
[2025-05-24 18:34] VITALS: BP 147/78; PULSE 90; RESP 18; TEMP 36.7; O2SAT 98; BMI 29.9
--- NOTE | 2025-05-24 19:36 | PC.NURSE ---
swelling and redness noted to both lower legs pt states he noticed it began yesterday. pt was being seen and treating in outpatient wound care for other wounds however pt states he missed several appointments and was declined further care
--- NOTE | 2025-05-24 20:43 | ED_ITS ---
HPI - Skin/Abscess/Foreign Bdy General Chief complaint: Skin/Abscess/Foreign Body Stated complaint: possible cellulitis Lt Time Seen by Provider: 05/24/25 20:42 Source: patient Mode of arrival: Ambulatory Limitations: no limitations History of Present Illness HPI narrative: 35-year-old male with a history of endocarditis and tricuspid valve replacement as well as chronic wounds of bilateral lower extremities. Patient presents with complaint of possibly infected wound versus cellulitis of his left lower extremity. States he has had persistent redness of the lower extremity for years but has not noticed increased pain particularly over the medial malleolus of the ankle and swelling that has been worse for several days. He notes fevers and night sweats. He denies chest pain or shortness of breath. No nausea or vomiting. No other GI or urinary symptoms. States that there has been increased pain of the ankle but not at the wound itself. He has a small anterior wound in the left lower extremity as well as a larger wound in the posterior calf which he states has been there for 2 years. He states he was following with the wound care until several months ago and had debridements regularly until then. He states that he was unable to keeps him it was appointments and was ultimately dismissed. Patient reports an allergy to sulfa but states that it is because his mom was allergic to it. 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 Notes that he still does use fentanyl intermittently. He denies any recent injection or IV drug use. Patient states he does not have a primary care physician. Related Data Previous Rx's ?Medication ?Instructions ?Recorded doxycycline monohydrate 100 mg 100 mg PO BID #14 caps 12/23/23 capsule clindamycin HCl 300 mg capsule 300 mg PO Q6H 10 days # 40 caps 05/24/25 (Cleocin HCl) Allergies Allergy/AdvReac Type Severity Reaction Status Date / Time Sulfa (Sulfonamide Allergy Intermediate Verified 05/24/25 18:35 Antibiotics) (SULFA (SULFONAMIDE ANTIBIOTICS)) Review of Systems Review of Systems ROS Unobtainable: All systems reviewed & are unremarkable except as noted in HPI and below Patient History Medical History Abscess, gluteal, right Abscess of skin or subcutaneous tissue Homeless Heroin dependence Pneumonia Cellulitis and abscess of hand Endocarditis Surgical History Tricuspid valve replaced Social History household members: none alcohol intake: current substance use type: heroin tobacco type: vaping alcohol intake frequency: holidays/special occasions only Exam Narrative Exam Narrative: GENERAL: Alert and oriented x three, male in mild distress HEENT: Head normocephalic, atraumatic, EOMI, pupils reactive, face symmetric, moist mucous membranes NECK: Supple, full range of motion CARDIOVASCULAR: Regular rate and rhythm without murmurs, rubs or gallops. RESPIRATORY: Breath sounds equal bilaterally, no wheezes rales or rhonchi. ABDOMEN: Soft, nontender. Normoactive bowel sounds all 4 quadrants. No guarding or rebound, rigidity, no mass : No CVA tenderness EXTREMITIES: Normal range of motion, no clubbing. Neurovascularly intact. Patient has bilateral chronic venous stasis changes on both lower extremities but his left lower extremity does appear erythematous compared to the right. He also has warmth particularly over the anterior castellon and ankle. Patient has a good cap refill with less than 2 seconds and bilateral lower extremities. He is only mildly tender to pain. He does have sensation intact bilaterally. Has a large wound she will left calf that is a proximally 4 cm in circumference. There is subcutaneous tissue exposed but it appears granulated. It has a minimal drainage. There is a small dime-sized wound on his anterior castellon on the left had also appears to be granulated with no active drainage. There was no foul odor. Patient also has a wound on his right lower extremity as well but there was no warmth erythema or swelling in the. NEUROLOGICAL: Cranial nerves II through XII grossly intact. Moving all extremities. SKIN: Warm, dry, no petechiae, no rashes or lesions. Initial Vital Signs Initial Vital Signs: Vital Signs Temperature 98.1 F 05/24/25 18:34 Pulse Rate 90 05/24/25 18:34 Respiratory Rate 18 05/24/25 18:34 Blood Pressure 147/78 H 05/24/25 18:34 Pulse Oximetry 98 05/24/25 18:34 Oxygen Delivery Method Room Air 05/24/25 18:34 Course Orders Ordered: Discontinued Medications Clindamycin Phosphate (Cleocin) 900 mg in 50 mls @ 50 mls/hr IV NOW ONE Stop: 05/24/25 21:57 Last Admin: 05/24/25 21:26 Dose: 50 mls/hr Documented By: TYLERF Vital Signs Vital signs: Vital Signs - 8 hr 05/24/25 18:34 05/24/25 21:17 05/24/25 21:30 Temperature 98.1 F Pulse Rate 90 78 75 Respiratory Rate 18 Blood Pressure 147/78 H Pulse Oximetry 98 82 L 96 Oxygen Delivery Method Room Air MDM - Skin/Abscess/Foreign Bdy Lab Data 05/24/25 19:25 05/24/25 19:25 Labs: Lab Results 05/24/25 Range/Units 19:25 WBC 8.9 (4.5-11.0) X10^3/uL RBC 4.23 L (4.5-5.9) X10^6/uL Hgb 11.9 L (13.5-17.5) g/dL Hct 35.5 L (41-53) % MCV 83.9 (80-100) fL MCH 28.0 (26-34) PG MCHC 33.4 (30-36) % RDW 15.4 H (11.6-14.8) % Plt Count 251 (150-400) X10^3/uL Neut % (Auto) 76.6 H (50-75) % Lymph % (Auto) 13.8 L (25-40) % [place] % (Auto) 6.8 (3-14) % Eos % (Auto) 0.2 L (2-4) % Baso % (Auto) 2.6 H (0-2) % Neut # (Auto) 6800 (5979-1610) /uL Lymph # (Auto) 1200 (3196-4654) /uL [place] # (Auto) 600 (0-900) /uL Eos # (Auto) 0 (0-450) /uL Baso # (Auto) 200 H (0-100) /uL Sodium 135 L (137-145) mmol/L Potassium 4.3 (3.4-5.1) mmol/L Chloride 101 (98-107) mmol/L Carbon Dioxide 23 (22-32) mmol/L BUN 13 (9-20) mg/dL Creatinine 0.71 (0.66-1.25) mg/dL Estimated GFR > 60 (>60) mL/min BUN/Creatinine Ratio 18.3 (6-22) Glucose 98 (70-99) mg/dL Lactate 1.3 (0.7-2.1) mmol/L Calcium 8.6 (8.4-10.2) mg/dL Total Bilirubin 0.9 (0.2-1.3) mg/dL AST 50 (17-59) IU/L ALT 28 (<50) IU/L Alkaline Phosphatase 154 H (38-126) U/L Total Protein 8.9 H (6.3-8.2) g/dL Albumin 4.2 (3.5-5.0) g/dL Globulin 4.7 H (1.7-4.1) g/dL Albumin/Globulin Ratio 0.9 L (1.0-2.8) Procalcitonin 0.081 (<0.5) ng/mL MDM Narrative Medical decision making narrative: Labs white count 8.9 hemoglobin is 11.9 was 10-13 range in 2023, platelets are 252 predominance of neutrophils. Chemistries shows sodium 135, normal electrolytes BUN and creatinine, glucose is 98 lactate is 1.3 alk-phos is 154 but normal bilirubin AST and ALT, procalcitonin 0.081 Culture of posterior calf wound was obtained and sent. CT left lower extremity shows no osseous erosion, soft tissue swelling most pronounced a lateral ankle could represent cellulitis. No loculated fluid collection. Patient received IV antibiotics. 35-year-old male history of endocarditis and tricuspid valve repair in the past still actively using opiates but denies any injection use. Has had chronic wounds in his bilateral lower extremities for 2 years states he had increasing pain swelling and redness of his left lower extremity recently. The area surrounding the wounds does not appear infected. We did discuss admission. Patient is very reluctant. After discussion he politely refuses admission we would like to try oral antibiotics. I think this is unlikely to be successful but we will send with a prescription. Discharge Plan Departure Patient Disposition: Home Clinical Impression: Non-pressure chronic ulcer of other part of left foot with fat layer exposed, Cellulitis of lower extremity Instructions: DI for Cellulitis -- Adult, DI for Wound Infection Activity Restrictions/Additional Instructions: I do recommend you try to follow up with the wound care, I will ask my social insurance analyst to see if they can make a follow up appointment for you. I also recommend that you be admitted for IV antibiotics but as you have elected to discharge home start oral antibiotics. [facility] was [facility] [place]. Please return if you develop fevers, increasing drainage from your wounds, worsening redness, increasing pain or swelling or other new or concerning changes. Prescriptions: New clindamycin HCl [Cleocin HCl] 300 mg capsule 300 mg PO Q6H 10 Days Qty: 40 0RF No Action doxycycline monohydrate 100 mg capsule 100 mg PO BID Qty: 14 0RF Referrals: Emerson Juarez MD [Physician, Wound Care] Miscellaneous,MD Marisela [Primary Care Provider, Medical] Stand Alone Forms: Patient Portal/API
--- NOTE | 2025-05-24 20:57 | DI.CT.S_ITS ---
PROCEDURE: CT LE LT W CON INDICATIONS: cellulitis/chronic wound, swelling redness/new at ankle TECHNIQUE: After the administration of intravenous contrast, 3 mm axial sections acquired of the left distal lower extremity , with coronal and sagittal reformats. COMPARISON: [facility], CT, CT LE LT W CON, 03/26/2023, 15:52. FINDINGS: Image quality: Excellent. Bones: No fracture or dislocation. No suspicious osseous lesion. No periosteal reaction. No osseous erosion is seen. Soft tissues: Soft tissue swelling most pronounced at the lateral ankle. No loculated fluid collection is seen. No vascular filling defect demonstrated. No radiopaque foreign body. IMPRESSION: No osseous erosion is identified. Soft tissue swelling most pronounced at the lateral ankle. This could represent cellulitis. Dictated by: Sanket Mcnair M.D. on 05/24/2025 at 22:07 Approved by: Sanket Mcnair M.D. on 05/24/2025 at 22:13
[2025-05-24 21:08] LABS: Add Manual Diff / Slide Review NO; Hematocrit 35.5 % (41-53); Hemoglobin 11.9 g/dL (13.5-17.5); Lymphocytes Absolute Auto 1200 /uL (1100-4500); Mean Corpuscular HGB Conc 33.4 % (30-36); Mean Corpuscular Hemoglobin 28.0 PG (26-34); Mean Corpuscular Volume 83.9 fL (80-100); Platelet Count 251 X10^3/uL (150-400)
[2025-05-24 21:17] VITALS: PULSE 78; O2SAT 82
[2025-05-24 21:26] LABS: Lactate (Lactic Acid) 1.3 mmol/L (0.7-2.1)
[2025-05-24] MEDS: CLINDAMYCIN 900 MG/50 ML PIGGYBACK 50 MG IV (21:26)
[2025-05-24 21:27] LABS: Alanine Aminotransferase 28 IU/L (<50); Albumin 4.2 g/dL (3.5-5.0); Albumin Globulin Ratio 0.9 (1.0-2.8); Alkaline Phosphatase 154 U/L (38-126); Blood Urea Nitrogen 13 mg/dL (9-20); Calcium 8.6 mg/dL (8.4-10.2); Carbon Dioxide 23 mmol/L (22-32); Chloride 101 mmol/L (98-107); Estimated Glomerular Filt Rate > 60 mL/min (>60); Globulin 4.7 g/dL (1.7-4.1); Glucose 98 mg/dL (70-99); HEMOLYSIS 17 (0-50); Potassium 4.3 mmol/L (3.4-5.1); Sodium 135 mmol/L (137-145); Total Protein 8.9 g/dL (6.3-8.2)
[2025-05-24 21:30] VITALS: PULSE 75; O2SAT 96
[2025-05-24 21:44] LABS: Procalcitonin 0.081 ng/mL (<0.5)
[2025-05-24 22:00] VITALS: PULSE 79; O2SAT 97
[2025-05-24 22:30] VITALS: PULSE 77; O2SAT 97
[2025-05-24 22:44] VITALS: BP 114/64; PULSE 76; O2SAT 97
--- NOTE | 2025-05-25 17:21 | CM.SWNOTE ---
ED REIKI PRACTITIONER Follow Up Note: Reviewed chart and recieved consult, it is identified that pt would benefit from a wound care clinic follow up as well as a PCP follow up. Per EMR, pt was dismissed from clinic due to many no show or missed appts. REIKI PRACTITIONER called pt, pt states he would be appreciative of a wound care clinic referral and to reestablish care there, he would also be appreciative of a PCP establishment appt; his previous PCP has retired. REIKI PRACTITIONER called [address], it is identified that pt's insurance ([employer]) is not accepted there. RE[facility] PRACTITIONER calls [facility], confirms above of pt dismissal from clinic. They state they are willing to review pt again and if still not available, they will coordinate with pt to be seen at a different clinic. REIKI PRACTITIONER called pt with above information, pt appreciative and will be awaiting coordination with [facility]. Scarlet Dueñas, COATING LINE WORK[employer]
== END 2025-05-24 23:04 | disposition home or self-care (01) ==
PROVIDERS: Emergency Provider Emergency Medicine
DX: L03.116 Cellulitis of left lower limb (principal); L97.522 Non-pressure chronic ulcer of other part of left foot with fat layer exposed; Z95.4 Presence of other heart-valve replacement
CPT/HCPCS: 36415; 73701; 80053; 83605; 84145; 85025; 87040; 87070; 87075; 87077; 87147; 87186; 87205; 99284; Q9967